=== PATIENT | male | born 1970 | race Caucasian/White ===

== ENCOUNTER 2017-11-04 18:05 | Inpatient (IN) | payer BC ==
[~2017-11-04] VITALS: Ht 162.6 cm; Wt 59.0 kg
[2017-11-04 19:15] VITALS: BP 125/78
[2017-11-04] MEDS ORDERED: PROSCAR5 MG ORAL (19:20)
[2017-11-04] MEDS ORDERED: TESSALON PERLE100 MG ORAL (19:20)
[2017-11-04] MEDS ORDERED: MERCAPTOPURINE50 MG PO (19:20)
[2017-11-04] MEDS ORDERED: PROMETH-CODEIN 65 ML PO (19:20)
[2017-11-04 19:54] LABS: APPEARANCE,URINE SLIGHTLY CLOUDY; BILIRUBIN, URINE NEGATIVE (NEGATIVE); COLOR,URINE AMBER; GLUCOSE, URINE (UA) NEGATIVE (NEGATIVE); KETONES,URINE 3+ (NEGATIVE); LEUKOCYTE ESTERASE ,URINE 1+ (NEGATIVE); NITRITE,URINE NEGATIVE (NEGATIVE); PH,URINE 7 (4.5-8.0); PROTEIN,URINE 2+ (NEGATIVE); UROBILINOGEN,URINE 4 MG/DL (0.0-1.0)
[2017-11-04 19:56] LABS: BASOPHILS % (AUTO) 0.8 % (0.0-2.0); EOSINOPHILS % (AUTO) 2.3 % (0.0-3.0); HEMOGLOBIN 16.4 G/DL (14.2-18.0); LYMPHOCYTES % (AUTO) 43.7 % (20.0-45.0); MEAN CORPUSCULAR VOLUME 88 FL (80-99); MONOCYTES % (AUTO) 11.1 % (1.0-10.0); NEUTROPHILS % (AUTO) 42.2 % (45.0-75.0); PLATELET COUNT 296 K/UL (150-450); RED BLOOD COUNT 5.54 M/UL (4.70-6.10); RED CELL DISTRIBUTION WIDTH 11.4 % (11.6-14.8); WHITE BLOOD COUNT 6.5 K/UL (4.8-10.8)
[2017-11-04 20:12] LABS: ANION GAP 12 mmol/L (5-15); BLOOD UREA NITROGEN 12 mg/dL (7-18); CALCIUM 9.4 MG/DL (8.5-10.1); CARBON DIOXIDE 25 MMOL/L (21-32); CHLORIDE 98 MMOL/L (98-107); POTASSIUM 3.7 MMOL/L (3.5-5.1); SODIUM 135 MMOL/L (136-145)
[2017-11-04 20:17] LABS: ALANINE AMINOTRANSFERASE 283 U/L (12-78); ALBUMIN 3.7 G/DL (3.4-5.0); ALBUMIN/GLOBULIN RATIO 0.8 (1.0-2.7); ALKALINE PHOSPHATASE 133 U/L (46-116); ASPARTATE AMINO TRANSFERASE 135 U/L (15-37); BILIRUBIN,TOTAL 0.7 MG/DL (0.2-1.0); CREATINE KINASE 124 U/L (26-308)
[2017-11-04] MEDS ORDERED: Albuterol ud Inhalation HHN ONE (20:30)
[2017-11-04 20:41] VITALS: BP 135/86
[2017-11-04] MEDS ORDERED: cefTRIAXone 1 GM in NS 55 ML IVPB ONE (20:45)
--- NOTE | 2017-11-04 21:26 | Emergency Room Report ---
History of Present Illness General Chief Complaint: Upper Respiratory Illness Source: Patient Present Illness HPI 47 YO Male presents to the ED c/o cough,congestion body-aches, fevers, chills and headaches with decreased appetite and fluid in-take x9 days. Patient has been treated with multiple outpatient medications and cough syrups. His primary care doctor also did influenza screening which came back as negative. Continues to have progressive symptoms. Reports history of immunocompromise due to medication for Crohn's disease. Denies abdominal pain, constipation, diarrhea. He reports that he took 1000 mg Tylenol prior to arrival 4 PM. Patient states he's been taking Tylenol consistently for fever reduction and only has relief of his symptoms for up to 4 hours. Denies CP, Palpitations, LOC , AMS, dizziness, Changes in Vision, Sensation, paresthesias, or a sudden severe headache. Allergies: Coded Allergies: No Known Allergies (Unverified , 11/04/17) Patient History Past Medical History: see triage record Past Surgical History: none Pertinent Family History: none Immunizations: UTD Reviewed Nursing Documentation: PMH: Agreed, PSxH: Agreed Nursing Documentation-PMH Hx Gastrointestinal Problems: Yes - Crohn's Review of Systems All Other Systems: negative except mentioned in HPI Physical Exam Vital Signs Date Time Temp Pulse Resp B/P (MAP) Pulse Ox O2 Delivery O2 Flow Rate FiO2 11/04/17 18:20 99.5 119 20 114/76 99 Room Air 11/04/17 20:41 21 Sp02 EP Interpretation: reviewed, normal General Appearance: no apparent distress, alert, GCS 15, non-toxic, moderate distress Head: normocephalic, atraumatic Eyes: bilateral eye normal inspection, bilateral eye PERRL ENT: hearing grossly normal, normal pharynx, normal voice, TMs + canals normal , uvula midline, moist mucus membranes Neck: full range of motion, no meningismus, no bony tend Respiratory: chest non-tender, lungs clear, normal breath sounds, no respiratory distress, no wheezing, speaking full sentences, other - persistent dry cough noted. Cardiovascular #1: no edema, normal capillary refill, tachycardia Gastrointestinal: normal bowel sounds, non tender, soft Rectal: deferred Musculoskeletal: back normal, gait/station normal, normal range of motion, non- tender Neurologic: alert, oriented x3, responsive, motor strength/tone normal, sensory intact, normal gait, speech normal, grossly normal Psychiatric: judgement/insight normal Skin: normal color, no rash, warm/dry Lymphatic: no adenopathy Medical Decision Making PA Attestation Dr. Fernando is my supervising physician whom pt. management has been discussed with. Diagnostic Impression: Primary Impression: Dehydration Additional Impressions: Acute viral syndrome History of Crohn's disease Transaminitis ER Course 47 YO Male presents to the ED c/o cough,congestion body-aches, fevers, chills and headaches with decreased appetite and fluid in-take x9 days. Patient has been treated with multiple outpatient medications and cough syrups. His primary care doctor also did influenza screening which came back as negative. Continues to have progressive symptoms. Reports history of immunocompromise due to medication for Crohn's disease. Denies abdominal pain, constipation, diarrhea. He reports that he took 1000 mg Tylenol prior to arrival 4 PM. Patient states he's been taking Tylenol consistently for fever reduction and only has relief of his symptoms for up to 4 hours. Denies CP, Palpitations, LOC , AMS, dizziness, Changes in Vision, Sensation, paresthesias, or a sudden severe headache. Ddx considered but are not limited to URI, pneumonia, PE, strep pharyngitis, meningitis, influenza, dehydration just to name a few. Vital signs: Pt. is afebrile, however tachycardic, the remaining VS are WNL H&PE are most consistent with Acute Viral Syndrome- no meningeal signs, oropharynx is not involved, no evidence of bacterial infection at this time. No abdominal pain, FROM of neck, no photophobia. ORDERS: -CBC: unremarkable -CMP: elevated LFT's, normal bili - Blood cultures x 2 : pending -UA: Moderate bacteria, no inflammatory marker elevation. Suspicious for contamination , however will treat prophylactically and await final urine culture results. -CXR: unremarkable ED INTERVENTIONS: -1 Liter NS Bolus - 1 Gram Rocephin IV - Albuterol Nebulized tx DISPOSITION: at this time pt. will be admitted to Dr. Broderick for Viral syndrome, Transaminitis and Dehydration. Dr. Broderick agreed to admit the pt. and to continue pt. care management. Labs Test 11/04/17 19:35 11/05/17 06:20 Urine Color Alicia Urine Appearance Slightly cloudy Urine pH 7 (4.5-8.0) Urine Specific [place] 1.010 (1.005-1.035) Urine Protein 2+ (NEGATIVE) Urine Glucose (UA) Negative (NEGATIVE) Urine Ketones 3+ (NEGATIVE) Urine Occult Blood 4+ (NEGATIVE) Urine Nitrite Negative (NEGATIVE) Urine Bilirubin Negative (NEGATIVE) Urine Ictotest Negative Urine Urobilinogen 4 MG/DL (0.0-1.0) Urine Leukocyte Esterase 1+ (NEGATIVE) Urine RBC 5-10 /HPF (0 - 0) Urine WBC 2-4 /HPF (0 - 0) Urine Squamous Epithelial Cells None /LPF (NONE/OCC) Urine Calcium Oxalate Crystals Few /LPF (NONE) Urine Bacteria Moderate /HPF (NONE) Urine Mucus Many /LPF (NONE/OCC) Lactic Acid Level 1.60 mmol/L (0.66-2.22) Total Creatine Kinase 124 U/L (26-308) Troponin I 0.000 ng/mL (0.000-0.056) Globulin 4.5 g/dL Albumin/Globulin Ratio 0.8 (1.0-2.7) White Blood Count 6.0 K/UL (4.8-10.8) Red Blood Count 4.55 M/UL (4.70-6.10) Hemoglobin 13.8 G/DL (14.2-18.0) Hematocrit 40.7 % (42.0-52.0) Mean Corpuscular Volume 89 FL (80-99) Mean Corpuscular Hemoglobin 30.4 PG (27.0-31.0) Mean Corpuscular Hemoglobin Concent 34.0 G/DL (32.0-36.0) Red Cell Distribution Width 11.7 % (11.6-14.8) Platelet Count 256 K/UL (150-450) Mean Platelet Volume 5.5 FL (6.5-10.1) Neutrophils (%) (Auto) % (45.0-75.0) Lymphocytes (%) (Auto) % (20.0-45.0) Monocytes (%) (Auto) % (1.0-10.0) Eosinophils (%) (Auto) % (0.0-3.0) Basophils (%) (Auto) % (0.0-2.0) Differential Total Cells Counted 100 Neutrophils % (Manual) 39 % (45-75) Lymphocytes % (Manual) 28 % (20-45) Monocytes % (Manual) 29 % (1-10) Eosinophils % (Manual) 2 % (0-3) Basophils % (Manual) 2 % (0-2) Band Neutrophils 0 % (0-8) Platelet Estimate Adequate Platelet Morphology Normal Red Blood Cell Morphology Normal Sodium Level 137 MMOL/L (136-145) Potassium Level 4.0 MMOL/L (3.5-5.1) Chloride Level 101 MMOL/L (98-107) Carbon Dioxide Level 28 MMOL/L (21-32) Anion Gap 8 mmol/L (5-15) Blood Urea Nitrogen 12 mg/dL (7-18) Creatinine 1.0 MG/DL (0.55-1.30) Estimat Glomerular Filtration Rate > 60 mL/min (>60) Glucose Level 115 MG/DL (74-106) Calcium Level 8.5 MG/DL (8.5-10.1) Magnesium Level 2.1 MG/DL (1.8-2.4) Total Bilirubin 0.5 MG/DL (0.2-1.0) Direct Bilirubin 0.1 MG/DL (0.0-0.3) Aspartate Amino Transf (AST/SGOT) 115 U/L (15-37) Alanine Aminotransferase (ALT/SGPT) 249 U/L (12-78) Alkaline Phosphatase 122 U/L (46-116) Total Protein 7.1 G/DL (6.4-8.2) Albumin 3.1 G/DL (3.4-5.0) Last Vital Signs Date Time Temp Pulse Resp B/P (MAP) Pulse Ox O2 Delivery O2 Flow Rate FiO2 11/04/17 20:41 85 21 Room Air 21 11/04/17 20:41 98 11/04/17 20:41 99.0 135/86 Disposition: ADMITTED INPATIENT Condition: Serious Referrals: NON PHYSICIAN (PCP) Maria A Fox Nov 04, 2017 21:26
[2017-11-04 22:00] VITALS: BP 130/84
[2017-11-04] MEDS ORDERED: D5 1/2NS w/KCl 20mEq 1,000 ML IV SCH (23:30)
[2017-11-04] MEDS ORDERED: Albuterol/Ipratropium 3ml neb HHN PRN (23:30)
[2017-11-04] MEDS: Acetaminophen 500mg (ES) tab ORAL PRN (23:55)
[2017-11-05] VITALS: BP 108/76
[2017-11-05] MEDS ORDERED: Promethazine/Codeine 5ml UD ORAL PRN (00:15)
[2017-11-05] MEDS: 1/2NS w/KCl 20mEq 1000ml 1,000 ML IV SCH ×4 (01:03→21:41)
[2017-11-05 04:00] VITALS: BP 118/82
[2017-11-05] MEDS: Acetaminophen 500mg (ES) tab ORAL PRN ×3 (06:35→18:24)
[2017-11-05 06:36] LABS: HEMATOCRIT 40.7 % (42.0-52.0); HEMOGLOBIN 13.8 G/DL (14.2-18.0); MEAN CORPUSCULAR VOLUME 89 FL (80-99); PLATELET COUNT 256 K/UL (150-450); RED BLOOD COUNT 4.55 M/UL (4.70-6.10); RED CELL DISTRIBUTION WIDTH 11.7 % (11.6-14.8)
[2017-11-05 06:53] LABS: ALANINE AMINOTRANSFERASE 249 U/L (12-78); ALBUMIN 3.1 G/DL (3.4-5.0); ALKALINE PHOSPHATASE 122 U/L (46-116); ANION GAP 8 mmol/L (5-15); ASPARTATE AMINO TRANSFERASE 115 U/L (15-37); BILIRUBIN,DIRECT 0.1 MG/DL (0.0-0.3); BILIRUBIN,TOTAL 0.5 MG/DL (0.2-1.0); BLOOD UREA NITROGEN 12 mg/dL (7-18); CALCIUM 8.5 MG/DL (8.5-10.1); CARBON DIOXIDE 28 MMOL/L (21-32); CHLORIDE 101 MMOL/L (98-107); SODIUM 137 MMOL/L (136-145)
[2017-11-05 08:00] VITALS: BP 107/71
[2017-11-05] MEDS: Heparin 5000 units/ml inj SUBQ SCH ×2 (10:11→21:38)
[2017-11-05 12:00] VITALS: BP 127/83
--- NOTE | 2017-11-05 12:43 | Diagnostic Imaging Report ---
Indication: Chest pain Technique: One view of the chest Comparison: none Findings: Lungs and pleural spaces are clear. Heart size is upper limits normal Impression: No acute process
[2017-11-05 16:05] VITALS: BP 110/71
--- NOTE | 2017-11-05 16:15 | History and Physical Report ---
DATE OF ADMISSION: 11/04/2017 CHIEF COMPLAINT: Congestion and postnasal drip. HISTORY OF PRESENT ILLNESS: This is a 47-year-old male, who has in his background Crohn's disease. For the last 10 days, the patient has been suffering from congestion, headache, chills, and fever. The patient has been trying different medications including cough syrups and Tylenol. Eventually, he presented to the emergency department where he is being admitted for symptomatic relief. PAST MEDICAL HISTORY: Crohn's disease. HOME MEDICATIONS: 1. Benzonatate or Tessalon. 2. Finasteride. 3. Proscar. 4. Mercaptopurine at bedtime. 5. Promethazine with codeine syrup. ALLERGIES: No known drug allergies. FAMILY HISTORY: Unremarkable. SOCIAL HISTORY: He is nonsmoker and nondrinker. There is no history of illicit drug abuse. REVIEW OF SYSTEMS: HEENT: Hearing and eyesight are normal. ENDOCRINE: No history of diabetes, thyroid, or adrenal problems. RESPIRATORY: Please refer to history of present illness. NEUROLOGICAL: No history of stroke, syncope, or Parkinson disease. ENDOCRINE: No history of diabetes, thyroid, or adrenal problems. PHYSICAL EXAMINATION: GENERAL: This is a young male, who is in no acute distress. VITAL SIGNS: Blood pressure 107/71, pulse 101, and temperature 100.6. HEENT: The head is normocephalic and atraumatic. Pupils are equal, round, and reactive to light and accommodation consensually. NECK: Supple. Trachea midline. There was no lymphadenopathy or thyromegaly. LUNGS: Clear to auscultation and percussion. HEART: Regular rate and rhythm without rubs, murmurs, or gallops. ABDOMEN: Soft and nontender. Bowel sounds were active. EXTREMITIES: No clubbing, cyanosis, or edema. NEUROLOGICAL: He is alert and oriented x4. Cranial nerves II through XII are intact. LABORATORY AND ANCILLARY DATA: Urine culture and sensitivity, no growth. CBC within normal limits. Serum chemistry, glucose 115. Liver enzymes elevated. AST initially 135, today 115; ALT 283, today 249; and alkaline phosphatase initially 133, today 122. ASSESSMENT: Suspect viral infection. Rule out cytomegalovirus, rule out other etiologies. PLAN: 1. Continue IV fluids. 2. Symptomatic treatment. Philip Esposito M.D. DR: KAILEY JOB#: [id number] CC: AISHA
[2017-11-05 20:42] VITALS: BP 116/74
[2017-11-05] MEDS ORDERED: Mercaptopurine 50mg tab ORAL SCH ×2 (21:00)
[2017-11-05] MEDS: MERCAPTOPURINE 50 MG ORAL SCH (21:28)
[2017-11-06] VITALS: BP 114/76
[2017-11-06 04:00] VITALS: BP 113/76
[2017-11-06] MEDS: Acetaminophen 500mg (ES) tab ORAL PRN ×4 (07:33→23:58)
[2017-11-06 08:00] VITALS: BP 121/80
[2017-11-06] MEDS: Heparin 5000 units/ml inj SUBQ SCH ×2 (08:10→20:43)
[2017-11-06 08:19] LABS: ALANINE AMINOTRANSFERASE 269 U/L (12-78); ALBUMIN 3.2 G/DL (3.4-5.0); ALKALINE PHOSPHATASE 132 U/L (46-116); ASPARTATE AMINO TRANSFERASE 122 U/L (15-37); BILIRUBIN,DIRECT 0.1 MG/DL (0.0-0.3)
[2017-11-06 08:44] LABS: BILIRUBIN,TOTAL 0.5 MG/DL (0.2-1.0)
[2017-11-06 12:00] VITALS: BP 111/79
--- NOTE | 2017-11-06 12:02 | General Progress Note ---
Assessment/Plan Assessment/Plan No evisence of particular pathology except elevated LFT's - to follow. Check Sinus XR r/O sinusitis. I am resigning from his case due to the deep mistrust. Subjective Allergies: Coded Allergies: No Known Allergies (Unverified , 11/04/17) Subjective Expressed dissatisfaction and a long list of nonspecific complaints Fever Headaches Neck Pain Cough Accusatory " how come aftyer 2 weeks you don't know what I've got. You are the Doctor".. Called nursing Associate Professor to change MD Objective Last 24 Hour Vital Signs Date Time Temp Pulse Resp B/P (MAP) Pulse Ox O2 Delivery O2 Flow Rate FiO2 11/06/17 09:00 98.7 11/06/17 08:00 101.7 111 20 121/80 98 Room Air 11/06/17 04:00 99.3 96 18 113/76 96 11/06/17 00:00 101.0 105 20 114/76 97 11/05/17 20:42 101.3 108 18 116/74 97 11/05/17 16:05 99.0 94 18 110/71 94 Room Air 11/05/17 12:00 99.8 91 18 127/83 94 Room Air Intake and Output 11/05/17 11/06/17 19:00 07:00 Intake Total 1400 ml 1360 ml Balance 1400 ml 1360 ml Intake Oral 400 ml 360 ml IV Total 1000 ml 1000 ml # Voids 4 2 Laboratory Tests 11/06/17 06:45: Total Bilirubin 0.5, Direct Bilirubin 0.1, Aspartate Amino Transf (AST/SGOT) 122H, Alanine Aminotransferase (ALT/SGPT) 269H, Alkaline Phosphatase 132H, Total Protein 7.3, Albumin 3.2L Height (Feet): 5 Height (Inches): 4.00 Weight (Pounds): 130 Objective Cv RR Lungs CTA Abd SNT BS+ E No CCE ALLY ABBOTT Nov 06, 2017 12:02
--- NOTE | 2017-11-06 13:26 | Infectious Diseases Prog Note ---
Assessment/Plan Assessment/Plan Full consult to follow: A) 1) fevers, ? influenza, ? viral syndrome, ? uri/sinusitis 2) Crohn's dx 3) [place] - doubt meningitis 4) allergies - negative P) 1) tamiflu plus rocephin 2) check influenza screen, serology, ct sinus, chest x-ray 3) thank you Subjective Allergies: Coded Allergies: No Known Allergies (Unverified , 11/04/17) Objective Vital Signs Last 24 Hour Vital Signs Date Time Temp Pulse Resp B/P (MAP) Pulse Ox O2 Delivery O2 Flow Rate FiO2 11/06/17 09:00 98.7 11/06/17 08:00 101.7 111 20 121/80 98 Room Air 11/06/17 04:00 99.3 96 18 113/76 96 11/06/17 00:00 101.0 105 20 114/76 97 11/05/17 20:42 101.3 108 18 116/74 97 11/05/17 16:05 99.0 94 18 110/71 94 Room Air Height (Feet): 5 Height (Inches): 4.00 Weight (Pounds): 130 Microbiology Date/Time Source Procedure Growth Status 11/04/17 19:35 Blood Blood Culture - Preliminary NO GROWTH AFTER 24 HOURS Resulted 11/04/17 19:20 Blood Blood Culture - Preliminary NO GROWTH AFTER 24 HOURS Resulted 11/04/17 19:35 Urine,Clean Catch Urine Culture - Preliminary Mixed Gram Positive Organism Resulted Laboratory Tests Test 11/06/17 06:45 Total Bilirubin 0.5 MG/DL (0.2-1.0) Direct Bilirubin 0.1 MG/DL (0.0-0.3) Aspartate Amino Transf (AST/SGOT) 122 U/L (15-37) H Alanine Aminotransferase (ALT/SGPT) 269 U/L (12-78) H Alkaline Phosphatase 132 U/L (46-116) H Total Protein 7.3 G/DL (6.4-8.2) Albumin 3.2 G/DL (3.4-5.0) L Current Medications Medications (Trade) Dose Ordered Sig/Mark Route PRN Reason Start Time Stop Time Status Last Admin Dose Admin Acetaminophen (Tylenol) 500 mg Q6HR PRN ORAL Mild Pain/Temp > 100.5 11/04/17 23:30 12/04/17 23:29 11/06/17 13:19 Albuterol/ Ipratropium (Albuterol/ Ipratropium) 3 ml Q6HRT PRN HHN Shortness of Breath 11/04/17 23:30 11/09/17 23:29 Heparin Sodium (Porcine) (Heparin 5000 units/ml) 5,000 units EVERY 12 HOURS SUBQ 11/05/17 09:00 12/05/17 08:59 11/05/17 21:38 Ondansetron HCl (Zofran) 4 mg Q6H PRN IVP Nausea & Vomiting 11/04/17 23:30 12/04/17 23:29 Patient Own Medication (Patient's Own Med) 0.5 ea QHS ORAL 11/05/17 21:00 12/05/17 20:59 11/05/17 21:28 Promethazine HCl/ Codeine (Phenergan with Codeine) 5 ml Q4H PRN ORAL For Cough 11/05/17 00:15 12/05/17 00:14 Sodium 1,000 ml @ 100 mls/hr Q10H IV 11/04/17 23:45 12/04/17 23:44 11/05/17 21:41 ANABELA MICHAEL Nov 06, 2017 13:26
[2017-11-06] MEDS ORDERED: cefTRIAXone 1 GM in NS 55 ML IVPB SCH (15:00)
[2017-11-06] MEDS: 1/2NS w/KCl 20mEq 1000ml 1,000 ML IV SCH ×3 (15:20→23:51)
[2017-11-06 16:00] VITALS: BP 116/77
--- NOTE | 2017-11-06 16:23 | Diagnostic Imaging Report ---
Indication: Reason For Exam: H/A Technique: Noncontrast spiral acquisitions obtained through the maxillofacial sinuses Multiplanar reconstructions were generated. Total dose length product 543 mGycm. CTDIvol(s) 28 mGy. Radiation dose was minimized using automated exposure control Comparison: none Findings: The sinuses are clear. No mucosal thickening, air-fluid levels, or polyps demonstrated. The nasal septum is midline. The maxillary ostia are clear. The mastoids are clear. The dentition is intact. The bones are intact. The visualized intracranial structures are unremarkable. The optic globes and retroseptal orbits are unremarkable. The facial soft tissues are unremarkable. Impression: Negative The CT scanner at [facility] is accredited by the [employer] and the scans are performed using protocols designed to limit radiation exposure to as low as reasonably achievable to attain images of sufficient resolution adequate for diagnostic evaluation.
[2017-11-06] MEDS ORDERED: Zolpidem 5mg tab ORAL PRN (17:00)
[2017-11-06] MEDS ORDERED: DiphenhydrAMINE 50mg/ml Inj IVP PRN (17:00)
[2017-11-06] MEDS ORDERED: Morphine Sulfate 4mg/ml Inj IVP PRN (17:00)
--- NOTE | 2017-11-06 17:10 | Consultation ---
History of Present Illness General Date patient seen: Nov 06, 2017 Time patient seen: 17:10 Chief Complaint: fevers, cough Referring physician: Dr. Esposito Reason for Consultation: assume primary Present Illness HPI 47y/o male with pmh of Crohn's disease (stable on mercaptopurine per pt) who presents with fevers and cough. Pt states he has not been feeling well for the past 10 days. He c/o cough which is dry. Also w/ sorethroat, sinus pain, headaches, fevers/chills/sweats. Notes fevers up to 102 at home. Was seen by PCP and had influenza test which was negative but given 5 day course of tamiflu which he completed w/o improvement. Given persistent fevers and flu-like symptoms he presented to ER for further evaluation. Denies abd pain, n/v, d/c, dysuria, chest pain, SOB, neck stiffness. Travels often for his work. Was in [employer] last year. Goes to [facility] [place]. Denies recent sick contacts, tick bites, insect bites. In ER, pt noted to have fevers to 101.4, tachycardic to 100-110s. No leukocytosis. +elevated LFTs. He was admitted and diagnosed with likely viral illness. He has been given IVFs. Influenza test was negative. Allergies: Coded Allergies: No Known Allergies (Unverified , 11/04/17) Medication History Scheduled Benzonatate* (Tessalon Perle*), 100 MG ORAL THREE TIMES A DAY, (Reported) Finasteride* (Proscar*), 5 MG ORAL DAILY, (Reported) Mercaptopurine (Mercaptopurine), 50 MG PO HS, (Reported) Promethazine HCl/Codeine (Prometh-Codein 6.25-10 mg/5 ml), 10 ML PO HS, ( Reported) Patient History History Provided By: Patient, Family Member, Medical Record Healthcare decision maker N Resuscitation status Full Code Advanced Directive on File Past Medical/Surgical History Past Medical/Surgical History: (1) History of Crohn's disease Family History Family History: (1) No significant family history Social History Social History: (1) No significant social history Review of Systems Constitutional: Reports: chills, sweats, fever, malaise, weakness Eye: Reports: no symptoms ENT: Reports: throat pain, throat swelling Respiratory: Reports: cough Cardiovascular: Reports: no symptoms Gastrointestinal: Reports: no symptoms Genitourinary: Reports: no symptoms Musculoskeletal: Reports: no symptoms Skin: Reports: no symptoms Psychiatric: Reports: no symptoms Neurological: Reports: no symptoms Endocrine: Reports: no symptoms Hematologic/Lymphatic: Reports: no symptoms All Other Systems: negative except mentioned in HPI Physical Exam Physical Exam Narrative General: alert, cooperative, no distress, appears stated age Head: normocephalic, without obvious abnormality, atraumatic Eyes: conjunctivae/corneas clear. PERRL, EOM's intact Throat: lips, mucosa, and tongue normal. MMM Neck: supple, symmetrical, trachea midline, and no JVD Lungs: clear to auscultation bilaterally Heart: regular rate and rhythm, S1, S2 normal, no murmur, click, rub or gallop Abdomen: soft, non-tender, non-distended, bowel sounds normal; no masses or organomegaly Extremities: extremities normal, atraumatic, no cyanosis or edema Pulses: 2+ and symmetric Skin: skin color, texture, turgor normal; no rashes or lesions Neurologic: grossly normal, no focal deficits Last 24 Hour Vital Signs Date Time Temp Pulse Resp B/P (MAP) Pulse Ox O2 Delivery O2 Flow Rate FiO2 11/06/17 14:18 98.7 11/06/17 12:00 98.5 97 20 111/79 98 Room Air 11/06/17 08:00 101.7 111 20 121/80 98 Room Air 11/06/17 04:00 99.3 96 18 113/76 96 11/06/17 00:00 101.0 105 20 114/76 97 11/05/17 20:42 101.3 108 18 116/74 97 Intake and Output 11/05/17 11/06/17 19:00 07:00 Intake Total 1400 ml 1360 ml Balance 1400 ml 1360 ml Intake Oral 400 ml 360 ml IV Total 1000 ml 1000 ml # Voids 4 2 Laboratory Tests Test 11/06/17 06:45 Total Bilirubin 0.5 MG/DL (0.2-1.0) Direct Bilirubin 0.1 MG/DL (0.0-0.3) Aspartate Amino Transf (AST/SGOT) 122 U/L (15-37) H Alanine Aminotransferase (ALT/SGPT) 269 U/L (12-78) H Alkaline Phosphatase 132 U/L (46-116) H Total Protein 7.3 G/DL (6.4-8.2) Albumin 3.2 G/DL (3.4-5.0) L Microbiology Date/Time Source Procedure Growth Status 11/06/17 13:40 Nasal Nares Influenza Types A,B Antigen (CHRISTIAN) - Final Complete Height (Feet): 5 Height (Inches): 4.00 Weight (Pounds): 130 Medications Current Medications Medications (Trade) Dose Ordered Sig/Mark Route PRN Reason Start Time Stop Time Status Last Admin Dose Admin Acetaminophen (Tylenol) 500 mg Q6HR ORAL 11/06/17 20:00 12/04/17 23:29 UNV Albuterol/ Ipratropium (Albuterol/ Ipratropium) 3 ml Q6HRT PRN HHN Shortness of Breath 11/04/17 23:30 11/09/17 23:29 Ceftriaxone Sodium 1 gm/ Sodium Chloride 55 ml @ 110 mls/hr Q24H IVPB 11/06/17 15:00 11/13/17 14:59 11/06/17 15:20 Diphenhydramine HCl (Benadryl) 25 mg Q6H PRN IVP Itching 11/06/17 17:00 12/06/17 16:59 Fexofenadine HCl (Sima) 60 mg TWICE A DAY ORAL 11/06/17 18:00 12/06/17 17:59 Heparin Sodium (Porcine) (Heparin 5000 units/ml) 5,000 units EVERY 12 HOURS SUBQ 11/05/17 09:00 12/05/17 08:59 11/05/17 21:38 Ketorolac Tromethamine (Toradol 30mg) 30 mg Q6H IV 11/06/17 17:00 11/11/17 16:59 UNV Morphine Sulfate (Morphine Sulfate) 2 mg Q4H PRN IVP For mod to severe Pain 11/06/17 17:00 11/13/17 16:59 Non-Formulary Medication (Non-Formulary Med) 1 ea DAILY ORAL 11/06/17 17:00 12/06/17 16:59 UNV Non-Formulary Medication (Non-Formulary Med) 1 ea DAILY ORAL 11/06/17 17:00 12/06/17 16:59 UNV Ondansetron HCl (Zofran) 4 mg Q6H PRN IVP Nausea & Vomiting 11/04/17 23:30 12/04/17 23:29 Oseltamivir Phosphate (Tamiflu) 75 mg TWICE A DAY ORAL 11/06/17 18:00 11/11/17 17:59 Patient Own Medication (Patient's Own Med) 0.5 ea QHS ORAL 11/05/17 21:00 12/05/17 20:59 11/05/17 21:28 Promethazine HCl/ Codeine (Phenergan with Codeine) 5 ml Q4H PRN ORAL For Cough 11/05/17 00:15 12/05/17 00:14 Sodium 1,000 ml @ 100 mls/hr Q10H IV 11/04/17 23:45 12/04/17 23:44 11/06/17 15:20 Zolpidem Tartrate (Ambien) 5 mg HSPRN PRN ORAL Insomnia 11/06/17 17:00 11/13/17 16:59 Assessment/Plan Problem List: (1) SIRS (systemic inflammatory response syndrome) ICD Codes: R65.10 - Systemic inflammatory response syndrome (SIRS) of non- infectious origin without acute organ dysfunction SNOMED: 737797233 (2) Febrile illness, acute ICD Codes: R50.9 - Fever, unspecified SNOMED: 544908930 (3) Transaminitis ICD Codes: R74.0 - Nonspecific elevation of levels of transaminase and lactic acid dehydrogenase [LDH] SNOMED: 148401695, 583684329 (4) Dehydration ICD Codes: E86.0 - Dehydration SNOMED: 99105326 (5) History of Crohn's disease ICD Codes: Z87.19 - Personal history of other diseases of the digestive system SNOMED: 758188431074809 (6) Hyponatremia ICD Codes: E87.1 - Hypo-osmolality and hyponatremia SNOMED: 84195675 Status: stable Assessment/Plan Unclear etiology. Possibly viral illness. Given elevated LFTs, consider EBV as an etiology ID consulted, appreciate rec's Start empiric ceftriaxone + tamiflu (11/06-) Consider adding atypical coverage if fevers persist F/u cultures Check EBV, monospot, hepatitis panel, HIV, CMV Trend LFTs mIVFs Tylenol + trial of Ketorlac (risks discussed and pt wishes to try it) Consider LP given c/o severe headache Pain control, bowel regimen Supportive care DVT ppx: early ambulation. pt refusing hsq FULL CODE D/w pt, mother, ID, RN extensively regarding plan of care and dispo Salina Driver M.D. Nov 06, 2017 17:10
[2017-11-06] MEDS: Acetaminophen 500mg (ES) tab ORAL SCH ×2 (17:30→17:54)
[2017-11-06] MEDS: Oseltamivir 75mg cap ORAL SCH (17:54)
[2017-11-06] MEDS: Ketorolac 30mg Inj IV SCH (17:54)
[2017-11-06 20:00] VITALS: BP 111/73
[2017-11-06] MEDS: MERCAPTOPURINE 50 MG ORAL SCH (20:42)
[2017-11-06] MEDS ORDERED: FINASTERIDE 5 MG ORAL SCH (21:00)
[2017-11-07] VITALS: BP 111/77
[2017-11-07 04:00] VITALS: BP 138/85
[2017-11-07] MEDS: Ketorolac 30mg Inj IV SCH ×6 (05:47→23:49)
[2017-11-07 07:22] LABS: BASOPHILS % (AUTO) 0.6 % (0.0-2.0); EOSINOPHILS % (AUTO) 2.9 % (0.0-3.0); HEMATOCRIT 41.6 % (42.0-52.0); HEMOGLOBIN 14.3 G/DL (14.2-18.0); MEAN CORPUSCULAR VOLUME 90 FL (80-99); MONOCYTES % (AUTO) 13.8 % (1.0-10.0); NEUTROPHILS % (AUTO) 44.7 % (45.0-75.0); PLATELET COUNT 275 K/UL (150-450); RED BLOOD COUNT 4.64 M/UL (4.70-6.10); WHITE BLOOD COUNT 5.8 K/UL (4.8-10.8)
[2017-11-07 07:32] LABS: ALANINE AMINOTRANSFERASE 278 U/L (12-78); ALBUMIN 3.2 G/DL (3.4-5.0); ALBUMIN/GLOBULIN RATIO 0.7 (1.0-2.7); ALKALINE PHOSPHATASE 156 U/L (46-116); ANION GAP 8 mmol/L (5-15); ASPARTATE AMINO TRANSFERASE 139 U/L (15-37); BILIRUBIN,TOTAL 0.5 MG/DL (0.2-1.0); BLOOD UREA NITROGEN 8 mg/dL (7-18); CALCIUM 8.7 MG/DL (8.5-10.1); CARBON DIOXIDE 26 MMOL/L (21-32); CHLORIDE 100 MMOL/L (98-107); CREATININE 0.9 MG/DL (0.55-1.30); POTASSIUM 4.1 MMOL/L (3.5-5.1); SODIUM 134 MMOL/L (136-145)
[2017-11-07 08:00] VITALS: BP 110/78
[2017-11-07] MEDS: 1/2NS w/KCl 20mEq 1000ml 1,000 ML IV SCH (08:30)
[2017-11-07] MEDS: Heparin 5000 units/ml inj SUBQ SCH (09:00)
[2017-11-07] MEDS: Oseltamivir 75mg cap ORAL SCH ×2 (09:00→17:51)
[2017-11-07] MEDS: NS w/KCl 20mEq 1,000 ML IV SCH ×2 (10:22→20:00)
[2017-11-07] MEDS ORDERED: Benzonatate 100mg Perles ORAL SCH (10:30)
--- NOTE | 2017-11-07 10:35 | Diagnostic Imaging Report ---
Indication: Cough Technique: One view of the chest Comparison: 11/04/2017 Findings: Less optimal inspiration with crowding of the bronchovascular markings. There is mild central bronchial wall thickening. The lungs and pleural spaces are clear. The heart size is normal. Impression: Mild central bronchial wall thickening, could indicate mild bronchitis changes Hypoventilatory exam No acute process otherwise
[2017-11-07 12:00] VITALS: BP 122/71
--- NOTE | 2017-11-07 13:22 | Infectious Diseases Prog Note ---
Assessment/Plan Assessment/Plan Full consult dictated: A) 1) fevers, ? influenza, ? viral syndrome, chest x-ray negative and ct sinuses negative 2) Crohn's dx 3) [place] - doubt meningitis 4) allergies - negative P) 1) tamiflu - day # 2/5, discontinue ceftriaxone 2) check serology, watch labs and temps 3) d/w Dr. Downing and patient Subjective Constitutional: Reports: fever HEENT: Reports: other - + [place], +cough, Denies: congestion Respiratory: Denies: shortness of breath Cardiovascular: Denies: chest pain Gastrointestinal/Abdominal: Denies: nausea Genitourinary: Denies: dysuria, hematuria Allergies: Coded Allergies: No Known Allergies (Unverified , 11/04/17) Objective Vital Signs Last 24 Hour Vital Signs Date Time Temp Pulse Resp B/P (MAP) Pulse Ox O2 Delivery O2 Flow Rate FiO2 11/07/17 12:35 99.2 11/07/17 12:00 98.7 97 19 122/71 97 11/07/17 08:00 99.2 96 18 110/78 97 11/07/17 04:00 100.7 100 18 138/85 97 11/07/17 01:16 99.4 11/07/17 00:00 100.3 96 19 111/77 97 11/06/17 20:00 99.5 92 17 111/73 97 11/06/17 16:00 99.6 104 20 116/77 97 Room Air 11/06/17 14:18 98.7 Height (Feet): 5 Height (Inches): 4.00 Weight (Pounds): 130 General Appearance: no acute distress HEENT: normocephalic, atraumatic, anicteric, mucous membranes moist, EOMI, supple, no JVD Respiratory/Chest: lungs clear, normal breath sounds, no respiratory distress Cardiovascular: normal rate, regular rhythm Abdomen: normal bowel sounds, soft, non tender, no organomegaly Microbiology Date/Time Source Procedure Growth Status 11/04/17 19:35 Blood Blood Culture - Preliminary NO GROWTH AFTER 48 HOURS Resulted 11/04/17 19:20 Blood Blood Culture - Preliminary NO GROWTH AFTER 48 HOURS Resulted 11/06/17 13:40 Nasal Nares Influenza Types A,B Antigen (CHRISTIAN) - Final Complete 11/04/17 19:35 Urine,Clean Catch Urine Culture - Final Mixed Gram Positive Organism Complete Laboratory Tests Test 11/07/17 04:20 White Blood Count 5.8 K/UL (4.8-10.8) Red Blood Count 4.64 M/UL (4.70-6.10) L Hemoglobin 14.3 G/DL (14.2-18.0) Hematocrit 41.6 % (42.0-52.0) L Mean Corpuscular Volume 90 FL (80-99) Mean Corpuscular Hemoglobin 30.7 PG (27.0-31.0) Mean Corpuscular Hemoglobin Concent 34.3 G/DL (32.0-36.0) Red Cell Distribution Width 12.0 % (11.6-14.8) Platelet Count 275 K/UL (150-450) Mean Platelet Volume 4.7 FL (6.5-10.1) L Neutrophils (%) (Auto) 44.7 % (45.0-75.0) L Lymphocytes (%) (Auto) 38.0 % (20.0-45.0) Monocytes (%) (Auto) 13.8 % (1.0-10.0) H Eosinophils (%) (Auto) 2.9 % (0.0-3.0) Basophils (%) (Auto) 0.6 % (0.0-2.0) Sodium Level 134 MMOL/L (136-145) L Potassium Level 4.1 MMOL/L (3.5-5.1) Chloride Level 100 MMOL/L (98-107) Carbon Dioxide Level 26 MMOL/L (21-32) Anion Gap 8 mmol/L (5-15) Blood Urea Nitrogen 8 mg/dL (7-18) Creatinine 0.9 MG/DL (0.55-1.30) Estimat Glomerular Filtration Rate > 60 mL/min (>60) Glucose Level 108 MG/DL (74-106) H Calcium Level 8.7 MG/DL (8.5-10.1) Total Bilirubin 0.5 MG/DL (0.2-1.0) Aspartate Amino Transf (AST/SGOT) 139 U/L (15-37) H Alanine Aminotransferase (ALT/SGPT) 278 U/L (12-78) H Alkaline Phosphatase 156 U/L (46-116) H Total Protein 7.6 G/DL (6.4-8.2) Albumin 3.2 G/DL (3.4-5.0) L Globulin 4.4 g/dL Albumin/Globulin Ratio 0.7 (1.0-2.7) L Cytomegalovirus DNA Qual (PCR) Pending Natali-Kang DNA Quant copies/mL Pending Natali-Kang Quant PCR Plasma log10 Pending Hepatitis A IgM Antibody Pending Hepatitis B Surface Antigen Pending Hepatitis B Core IgM Antibody Pending Hepatitis C Antibody Pending Current Medications Medications (Trade) Dose Ordered Sig/Mark Route PRN Reason Start Time Stop Time Status Last Admin Dose Admin Acetaminophen (Tylenol) 500 mg Q6H PRN ORAL Headache/Temp > 101 11/06/17 18:00 12/06/17 17:59 11/06/17 23:58 Albuterol/ Ipratropium (Albuterol/ Ipratropium) 3 ml Q6HRT PRN HHN Shortness of Breath 11/04/17 23:30 11/09/17 23:29 Ceftriaxone Sodium 1 gm/ Sodium Chloride 55 ml @ 110 mls/hr Q24H IVPB 11/06/17 15:00 11/13/17 14:59 11/06/17 15:20 Diphenhydramine HCl (Benadryl) 25 mg Q6H PRN IVP Itching 11/06/17 17:00 12/06/17 16:59 Fexofenadine HCl (Sima) 60 mg TWICE A DAY ORAL 11/06/17 18:00 12/06/17 17:59 11/07/17 09:00 Finasteride (Proscar) 2.5 mg QHS ORAL 11/07/17 21:00 12/07/17 20:59 Hydromorphone HCl (Dilaudid) 0.5 mg Q4H PRN IVP Unrelieved Jes-ew-Jfrwig Pain 11/06/17 17:15 11/13/17 17:14 Ketorolac Tromethamine (Toradol 30mg) 30 mg Q6HR IV 11/06/17 17:30 11/11/17 17:29 11/07/17 12:05 Ondansetron HCl (Zofran) 4 mg Q6H PRN IVP Nausea & Vomiting 11/04/17 23:30 12/04/17 23:29 Oseltamivir Phosphate (Tamiflu) 75 mg TWICE A DAY ORAL 11/06/17 18:00 11/11/17 17:59 11/07/17 09:00 Patient Own Medication (Patient's Own Med) 0.5 ea QHS ORAL 11/05/17 21:00 12/05/17 20:59 11/06/17 20:42 Prochlorperazine (Compazine) 10 mg Q6H PRN IVP Nausea & Vomiting 11/07/17 10:15 12/07/17 10:14 Promethazine HCl/ Codeine (Phenergan with Codeine) 5 ml Q4H PRN ORAL For Cough 11/05/17 00:15 12/05/17 00:14 11/07/17 12:13 Sodium Chloride 1,000 ml @ 100 mls/hr Q10H IV 11/07/17 10:00 12/07/17 09:59 11/07/17 10:22 Zolpidem Tartrate (Ambien) 5 mg HSPRN PRN ORAL Insomnia 11/06/17 17:00 11/13/17 16:59 ANABELA MICHAEL Nov 07, 2017 13:22
--- NOTE | 2017-11-07 15:46 | General Progress Note ---
Assessment/Plan Problem List: (1) SIRS (systemic inflammatory response syndrome) ICD Codes: R65.10 - Systemic inflammatory response syndrome (SIRS) of non- infectious origin without acute organ dysfunction SNOMED: 732374336 (2) Febrile illness, acute ICD Codes: R50.9 - Fever, unspecified SNOMED: 814708719 (3) Transaminitis ICD Codes: R74.0 - Nonspecific elevation of levels of transaminase and lactic acid dehydrogenase [LDH] SNOMED: 601649485, 112283094 (4) Elevated liver function tests ICD Codes: R79.89 - Other specified abnormal findings of blood chemistry SNOMED: 133515658, 470334335 (5) Dehydration ICD Codes: E86.0 - Dehydration SNOMED: 06869119 (6) Hyponatremia ICD Codes: E87.1 - Hypo-osmolality and hyponatremia SNOMED: 04649343 (7) History of Crohn's disease ICD Codes: Z87.19 - Personal history of other diseases of the digestive system SNOMED: 384717836106540 Status: stable Assessment/Plan Unclear etiology. Possibly viral illness. Given elevated LFTs, consider EBV as an etiology ID consulted, appreciate rec's Cont tamiflu (11/06-). Influenza rapid test neg but maybe false positive. [place] [facility] [place] ceftriaxone and observe Consider atypical coverage if fevers persist F/u cultures F/u EBV, monospot, hepatitis panel, HIV, CMV Trend LFTs mIVFs Tylenol + trial of Ketorlac (risks discussed and pt wishes to try it) Consider further CT chest/abd/pelvis if fevers persist Consider LP given c/o severe headache Pain control, bowel regimen Supportive care DVT ppx: early ambulation. pt refusing hsq FULL CODE D/w pt, mother, ID, RN extensively regarding plan of care and dispo Subjective Date patient seen: Nov 07, 2017 Time patient seen: 10:00 ROS Limited/Unobtainable: No Constitutional: Reports: fever, malaise, weakness HEENT: Reports: no symptoms, throat pain Respiratory: Reports: cough, shortness of breath Gastrointestinal/Abdominal: Reports: no symptoms Genitourinary: Reports: no symptoms Neurologic/Psychiatric: Reports: headache Endocrine: Reports: no symptoms Hematologic/Lymphatic: Reports: no symptoms Allergies: Coded Allergies: No Known Allergies (Unverified , 11/04/17) All Systems: reviewed and negative except above Subjective No acute o/n events Cont to have fevers up to 101 Pt states Toradol helps with fevers and pain. Still not feeling well. Cont w/ coughing fits, sinus pain, headaches, lethargy. Appetite ok Objective Last 24 Hour Vital Signs Date Time Temp Pulse Resp B/P (MAP) Pulse Ox O2 Delivery O2 Flow Rate FiO2 11/07/17 12:35 99.2 11/07/17 12:00 97 Room Air 11/07/17 12:00 98.7 97 19 122/71 97 11/07/17 08:00 99.2 96 18 110/78 97 11/07/17 08:00 97 Room Air 11/07/17 04:00 100.7 100 18 138/85 97 11/07/17 01:16 99.4 11/07/17 00:00 100.3 96 19 111/77 97 11/06/17 20:00 99.5 92 17 111/73 97 11/06/17 16:00 99.6 104 20 116/77 97 Room Air Intake and Output 11/06/17 11/07/17 19:00 07:00 Intake Total 1460 ml 1562 ml Balance 1460 ml 1562 ml Intake Oral 360 ml 362 ml IV Total 1100 ml 1200 ml # Voids 2 2 Laboratory Tests 11/07/17 04:20: White Blood Count 5.8, Red Blood Count 4.64L, Hemoglobin 14.3, Hematocrit 41.6L , Mean Corpuscular Volume 90, Mean Corpuscular Hemoglobin 30.7, Mean Corpuscular Hemoglobin Concent 34.3, Red Cell Distribution Width 12.0, Platelet Count 275, Mean Platelet Volume 4.7L, Neutrophils (%) (Auto) 44.7L, Lymphocytes (%) (Auto) 38.0, Monocytes (%) (Auto) 13.8H, Eosinophils (%) (Auto) 2.9, Basophils (%) (Auto) 0.6, Sodium Level 134L, Potassium Level 4.1, Chloride Level 100, Carbon Dioxide Level 26, Anion Gap 8, Blood Urea Nitrogen 8, Creatinine 0.9, Estimat Glomerular Filtration Rate > 60, Glucose Level 108H, Calcium Level 8.7, Total Bilirubin 0.5, Aspartate Amino Transf (AST/SGOT) 139H, Alanine Aminotransferase (ALT/SGPT) 278H, Alkaline Phosphatase 156H, Total Protein 7.6, Albumin 3.2L, Globulin 4.4, Albumin/Globulin Ratio 0.7L, Cytomegalovirus DNA Qual (PCR) [Pending], Natali-Kang DNA Quant copies/mL [ Pending], Natali-Kang Quant PCR Plasma log10 [Pending], Hepatitis A IgM Antibody [Pending], Hepatitis B Surface Antigen [Pending], Hepatitis B Core IgM Antibody [Pending], Hepatitis C Antibody [Pending] Height (Feet): 5 Height (Inches): 4.00 Weight (Pounds): 130 Objective General: alert, cooperative, no distress, appears stated age Head: normocephalic, without obvious abnormality, atraumatic Eyes: conjunctivae/corneas clear. PERRL, EOM's intact Throat: lips, mucosa, and tongue normal. MMM Neck: supple, symmetrical, trachea midline, and no JVD Lungs: clear to auscultation bilaterally Heart: regular rate and rhythm, S1, S2 normal, no murmur, click, rub or gallop Abdomen: soft, non-tender, non-distended, bowel sounds normal Extremities: extremities normal, atraumatic, no cyanosis or edema Pulses: 2+ and symmetric Skin: skin color, texture, turgor normal; no rashes or lesions Neurologic: grossly normal, no focal deficits Salina Driver M.D. Nov 07, 2017 15:46
[2017-11-07 16:00] VITALS: BP 135/75
[2017-11-07] MEDS: Acetaminophen 500mg (ES) tab ORAL PRN (16:43)
[2017-11-07 20:00] VITALS: BP 110/73
[2017-11-07] MEDS: MERCAPTOPURINE 50 MG ORAL SCH (20:51)
[2017-11-07] MEDS: Hydromorphone 0.5mg/0.5ml inj IVP PRN (22:36)
[2017-11-08] VITALS: BP 121/68
[2017-11-08 04:00] VITALS: BP 125/89
[2017-11-08] MEDS: Ketorolac 30mg Inj IV SCH ×3 (05:42→17:55)
[2017-11-08] MEDS: NS w/KCl 20mEq 1,000 ML IV SCH ×3 (06:00→16:00)
[2017-11-08 08:00] VITALS: BP 100/57
[2017-11-08 08:42] LABS: BASOPHILS % (AUTO) 0.7 % (0.0-2.0); EOSINOPHILS % (AUTO) 2.2 % (0.0-3.0); HEMATOCRIT 37.8 % (42.0-52.0); HEMOGLOBIN 13.2 G/DL (14.2-18.0); LYMPHOCYTES % (AUTO) 41.6 % (20.0-45.0); MEAN CORPUSCULAR VOLUME 90 FL (80-99); MONOCYTES % (AUTO) 17.3 % (1.0-10.0); NEUTROPHILS % (AUTO) 38.3 % (45.0-75.0); PLATELET COUNT 263 K/UL (150-450); RED BLOOD COUNT 4.21 M/UL (4.70-6.10); RED CELL DISTRIBUTION WIDTH 12.1 % (11.6-14.8)
[2017-11-08 08:58] LABS: ALANINE AMINOTRANSFERASE 286 U/L (12-78); ALBUMIN 2.9 G/DL (3.4-5.0); ALBUMIN/GLOBULIN RATIO 0.7 (1.0-2.7); ALKALINE PHOSPHATASE 159 U/L (46-116); ANION GAP 8 mmol/L (5-15); ASPARTATE AMINO TRANSFERASE 144 U/L (15-37); BILIRUBIN,TOTAL 0.4 MG/DL (0.2-1.0); BLOOD UREA NITROGEN 7 mg/dL (7-18); CALCIUM 8.2 MG/DL (8.5-10.1); CARBON DIOXIDE 25 MMOL/L (21-32); CHLORIDE 100 MMOL/L (98-107); CREATININE 0.8 MG/DL (0.55-1.30); POTASSIUM 3.7 MMOL/L (3.5-5.1); SODIUM 133 MMOL/L (136-145)
[2017-11-08] MEDS ORDERED: Azithromycin 250mg tab ORAL SCH (09:00)
[2017-11-08] MEDS: Oseltamivir 75mg cap ORAL SCH ×2 (09:30→17:54)
[2017-11-08] MEDS ORDERED: cefTRIAXone 1 GM in D5W 55 ML IVPB SCH (10:00)
[2017-11-08] MEDS: cefTRIAXone 1 GM in NS 55 ML IVPB SCH (11:38)
[2017-11-08 12:00] VITALS: BP 117/74
[2017-11-08] MEDS: Doxycycline Hyclate 100 MG in NS 110 ML IV SCH ×2 (12:11→22:12)
--- NOTE | 2017-11-08 13:07 | Infectious Diseases Prog Note ---
Assessment/Plan Assessment/Plan A) 1) fevers persist, elevated LDH, ? influenza, ? viral syndrome, ? atypical pathogen, ? fungal/TB, ? lymphoma 2) Crohn's dx with immunosuppression tx 3) [place] - doubt meningitis 4) allergies - negative P) 1) tamiflu - day # 3/5, rocephin, doxycycline, azithromycin 2) extensive serology ordered, check CT scan, check US abdomen, watch labs and temps 3) d/w Dr. Downing and patient 4) orders entered Subjective Constitutional: Reports: fever, other - + [place] HEENT: Denies: congestion Respiratory: Denies: shortness of breath Cardiovascular: Denies: chest pain Gastrointestinal/Abdominal: Denies: nausea, vomiting, diarrhea Genitourinary: Denies: dysuria Neurologic: Reports: headache Allergies: Coded Allergies: No Known Allergies (Unverified , 11/04/17) Objective Vital Signs Last 24 Hour Vital Signs Date Time Temp Pulse Resp B/P (MAP) Pulse Ox O2 Delivery O2 Flow Rate FiO2 11/08/17 08:00 100.3 68 19 100/57 96 11/08/17 06:45 99.1 11/08/17 04:00 102.3 126 19 125/89 97 11/08/17 04:00 97 Room Air 11/08/17 00:00 97 Room Air 11/08/17 00:00 101.2 116 18 121/68 97 11/07/17 20:00 100.9 116 18 110/73 97 11/07/17 20:00 97 Room Air 11/07/17 18:22 102.0 11/07/17 17:56 102.0 11/07/17 17:56 102.0 11/07/17 16:30 100.3 11/07/17 16:00 97 Room Air 11/07/17 16:00 97.0 95 19 135/75 97 Height (Feet): 5 Height (Inches): 4.00 Weight (Pounds): 130 General Appearance: no acute distress HEENT: normocephalic, atraumatic, anicteric Respiratory/Chest: lungs clear, normal breath sounds, no respiratory distress Cardiovascular: normal rate, regular rhythm, no gallop/murmur Abdomen: normal bowel sounds, soft, non tender, no organomegaly Microbiology Date/Time Source Procedure Growth Status 11/06/17 13:40 Nasal Nares Influenza Types A,B Antigen (CHRISTIAN) - Final Complete Laboratory Tests Test 11/08/17 06:15 11/08/17 11:30 White Blood Count 7.0 K/UL (4.8-10.8) Red Blood Count 4.21 M/UL (4.70-6.10) L Hemoglobin 13.2 G/DL (14.2-18.0) L Hematocrit 37.8 % (42.0-52.0) L Mean Corpuscular Volume 90 FL (80-99) Mean Corpuscular Hemoglobin 31.4 PG (27.0-31.0) H Mean Corpuscular Hemoglobin Concent 35.0 G/DL (32.0-36.0) Red Cell Distribution Width 12.1 % (11.6-14.8) Platelet Count 263 K/UL (150-450) Mean Platelet Volume 4.7 FL (6.5-10.1) L Neutrophils (%) (Auto) 38.3 % (45.0-75.0) L Lymphocytes (%) (Auto) 41.6 % (20.0-45.0) Monocytes (%) (Auto) 17.3 % (1.0-10.0) H Eosinophils (%) (Auto) 2.2 % (0.0-3.0) Basophils (%) (Auto) 0.7 % (0.0-2.0) Erythrocyte Sedimentation Rate 27 MM/HR (0-15) H Sodium Level 133 MMOL/L (136-145) L Potassium Level 3.7 MMOL/L (3.5-5.1) Chloride Level 100 MMOL/L (98-107) Carbon Dioxide Level 25 MMOL/L (21-32) Anion Gap 8 mmol/L (5-15) Blood Urea Nitrogen 7 mg/dL (7-18) Creatinine 0.8 MG/DL (0.55-1.30) Estimat Glomerular Filtration Rate > 60 mL/min (>60) Glucose Level 112 MG/DL (74-106) H Calcium Level 8.2 MG/DL (8.5-10.1) L Total Bilirubin 0.4 MG/DL (0.2-1.0) Aspartate Amino Transf (AST/SGOT) 144 U/L (15-37) H Alanine Aminotransferase (ALT/SGPT) 286 U/L (12-78) H Alkaline Phosphatase 159 U/L (46-116) H Lactate Dehydrogenase 516 U/L (81-234) H Total Protein 6.9 G/DL (6.4-8.2) Albumin 2.9 G/DL (3.4-5.0) L Globulin 4.0 g/dL Albumin/Globulin Ratio 0.7 (1.0-2.7) L Rapid Plasma Reagin Pending Bartonella henselae IgG Antibody Pending Bartonella henselae IgM Antibody Pending HIV (1&2) Antibody Rapid Negative (NEGATIVE) Q Fever Phase I IgG Antibody Pending Q Fever Phase II IgG Antibody Pending Rickettsia IgG Ab ([facility] Fever) Pending Rickettsia IgM Ab ([facility] Fever) Pending Current Medications Medications (Trade) Dose Ordered Sig/Mark Route PRN Reason Start Time Stop Time Status Last Admin Dose Admin Acetaminophen (Tylenol) 500 mg Q6H PRN ORAL Headache/Temp > 101 11/06/17 18:00 12/06/17 17:59 11/07/17 16:43 Albuterol/ Ipratropium (Albuterol/ Ipratropium) 3 ml Q6HRT PRN HHN Shortness of Breath 11/04/17 23:30 11/09/17 23:29 Azithromycin 500 mg/Dextrose 275 ml @ 275 mls/hr Q24HRS IV 11/08/17 13:00 11/14/17 13:59 Ceftriaxone Sodium 1 gm/ Sodium Chloride 55 ml @ 110 mls/hr DAILY IVPB 11/08/17 10:45 11/15/17 10:44 11/08/17 11:38 Diphenhydramine HCl (Benadryl) 25 mg Q6H PRN IVP Itching 11/06/17 17:00 12/06/17 16:59 Doxycycline Hyclate 100 mg/ Sodium Chloride 110 ml @ 110 mls/hr BID@1000,2200 IV 11/08/17 12:00 11/15/17 11:59 11/08/17 12:11 Fexofenadine HCl (Sima) 60 mg TWICE A DAY ORAL 11/06/17 18:00 12/06/17 17:59 11/08/17 09:30 Finasteride (Proscar) 2.5 mg QHS ORAL 11/07/17 21:00 12/07/17 20:59 11/07/17 20:51 Hydromorphone HCl (Dilaudid) 0.5 mg Q4H PRN IVP Unrelieved Xfg-lo-Avskih Pain 11/06/17 17:15 11/13/17 17:14 11/07/17 22:36 Ketorolac Tromethamine (Toradol 30mg) 30 mg Q6HR IV 11/06/17 17:30 11/11/17 17:29 11/08/17 11:59 Mercaptopurine (Purinethol) 25 mg QHS ORAL 11/08/17 21:00 11/13/17 20:59 Ondansetron HCl (Zofran) 4 mg Q6H PRN IVP Nausea & Vomiting 11/04/17 23:30 12/04/17 23:29 Oseltamivir Phosphate (Tamiflu) 75 mg TWICE A DAY ORAL 11/06/17 18:00 11/11/17 17:59 11/08/17 09:30 Prochlorperazine (Compazine) 10 mg Q6H PRN IVP Nausea & Vomiting 11/07/17 10:15 12/07/17 10:14 Promethazine HCl/ Codeine (Phenergan with Codeine) 5 ml Q4H PRN ORAL For Cough 11/05/17 00:15 12/05/17 00:14 11/07/17 12:13 Sodium Chloride 1,000 ml @ 100 mls/hr Q10H IV 11/07/17 10:00 12/07/17 09:59 11/08/17 07:50 Zolpidem Tartrate (Ambien) 5 mg HSPRN PRN ORAL Insomnia 11/06/17 17:00 11/13/17 16:59 ANABELA MICHAEL Nov 08, 2017 13:07
[2017-11-08] MEDS: Azithromycin 500 MG in D5W 275 ML IV SCH (14:50)
[2017-11-08 16:50] VITALS: BP 135/86
--- NOTE | 2017-11-08 16:58 | General Progress Note ---
Assessment/Plan Problem List: (1) SIRS (systemic inflammatory response syndrome) ICD Codes: R65.10 - Systemic inflammatory response syndrome (SIRS) of non- infectious origin without acute organ dysfunction SNOMED: 191494734 (2) Febrile illness, acute ICD Codes: R50.9 - Fever, unspecified SNOMED: 024161931 (3) Transaminitis ICD Codes: R74.0 - Nonspecific elevation of levels of transaminase and lactic acid dehydrogenase [LDH] SNOMED: 460324894, 493481743 (4) Elevated liver function tests ICD Codes: R79.89 - Other specified abnormal findings of blood chemistry SNOMED: 685697689, 761960178 (5) Dehydration ICD Codes: E86.0 - Dehydration SNOMED: 50046288 (6) Hyponatremia ICD Codes: E87.1 - Hypo-osmolality and hyponatremia SNOMED: 68938309 (7) History of Crohn's disease ICD Codes: Z87.19 - Personal history of other diseases of the digestive system SNOMED: 204527128802997 Status: stable Assessment/Plan Unclear etiology. Possibly viral illness. Given elevated LFTs, consider EBV as an etiology ID consulted, appreciate rec's Cont tamiflu (11/06-). Influenza rapid test neg but maybe false positive. No PCR test available at [facility] [place] Repeat blood cultures x 2 today Restart ceftriaxone given high fevers Add azithro for possive Pertusis Add doxy to cover atypicals such as Ricketsia, Lyme's Consider atypical coverage if fevers persist F/u blood cultures from admission--ngtd F/u EBV, monospot, hepatitis panel, HIV, CMV Check ECHO Trend LFTs Check U/S abd D/w ID who recommends CT chest/abd/pelvis and also CT head (c/o headache) given high fevers for almost 2 weeks mIVFs Tylenol + trial of Ketorlac (risks discussed and pt wishes to try it) Consider further CT chest/abd/pelvis if fevers persist Consider LP given c/o severe headache pending CT Pain control, bowel regimen Supportive care DVT ppx: early ambulation. pt refusing hsq FULL CODE D/w pt, mother, ID, RN extensively regarding plan of care and dispo Subjective Date patient seen: Nov 08, 2017 Time patient seen: 16:54 ROS Limited/Unobtainable: No Constitutional: Reports: fever, malaise, weakness HEENT: Reports: throat pain Cardiovascular: Reports: no symptoms Respiratory: Reports: cough, shortness of breath Gastrointestinal/Abdominal: Reports: no symptoms Genitourinary: Reports: no symptoms Neurologic/Psychiatric: Reports: headache Endocrine: Reports: no symptoms Hematologic/Lymphatic: Reports: no symptoms Allergies: Coded Allergies: No Known Allergies (Unverified , 11/04/17) Subjective Fevers up to 102 overnight and this AM Pt states Toradol helps with fevers and pain. Still not feeling well. Cont w/ coughing fits, sinus pain, headaches, lethargy. Appetite ok Objective Last 24 Hour Vital Signs Date Time Temp Pulse Resp B/P (MAP) Pulse Ox O2 Delivery O2 Flow Rate FiO2 11/08/17 12:29 99.5 11/08/17 12:00 99.5 100 19 117/74 97 11/08/17 08:00 100.3 68 19 100/57 96 11/08/17 06:45 99.1 11/08/17 04:00 102.3 126 19 125/89 97 11/08/17 04:00 97 Room Air 11/08/17 00:00 97 Room Air 11/08/17 00:00 101.2 116 18 121/68 97 11/07/17 20:00 100.9 116 18 110/73 97 11/07/17 20:00 97 Room Air 11/07/17 17:56 102.0 11/07/17 17:56 102.0 Intake and Output 11/07/17 11/08/17 19:00 07:00 Intake Total 1600 ml 200 ml Balance 1600 ml 200 ml Intake Oral 750 ml IV Total 850 ml 200 ml # Voids 3 2 Laboratory Tests 11/08/17 06:15: White Blood Count 7.0, Red Blood Count 4.21L, Hemoglobin 13.2L, Hematocrit 37.8L , Mean Corpuscular Volume 90, Mean Corpuscular Hemoglobin 31.4H, Mean Corpuscular Hemoglobin Concent 35.0, Red Cell Distribution Width 12.1, Platelet Count 263, Mean Platelet Volume 4.7L, Neutrophils (%) (Auto) 38.3L, Lymphocytes (%) (Auto) 41.6, Monocytes (%) (Auto) 17.3H, Eosinophils (%) (Auto) 2.2, Basophils (%) (Auto) 0.7, Erythrocyte Sedimentation Rate 27H, Sodium Level 133L , Potassium Level 3.7, Chloride Level 100, Carbon Dioxide Level 25, Anion Gap 8 , Blood Urea Nitrogen 7, Creatinine 0.8, Estimat Glomerular Filtration Rate > 60 , Glucose Level 112H, Calcium Level 8.2L, Total Bilirubin 0.4, Aspartate Amino Transf (AST/SGOT) 144H, Alanine Aminotransferase (ALT/SGPT) 286H, Alkaline Phosphatase 159H, Lactate Dehydrogenase 516H, Total Protein 6.9, Albumin 2.9L, Globulin 4.0, Albumin/Globulin Ratio 0.7L 11/08/17 11:30: Rapid Plasma Reagin [Pending], Bartonella henselae IgG Antibody [Pending], Bartonella henselae IgM Antibody [Pending], HIV (1&2) Antibody Rapid Negative, Q Fever Phase I IgG Antibody [Pending], Q Fever Phase II IgG Antibody [Pending] , Rickettsia IgG Ab ([facility] Fever) [Pending], Rickettsia IgM Ab ([facility] Fever) [Pending] Height (Feet): 5 Height (Inches): 4.00 Weight (Pounds): 130 Objective General: alert, cooperative, no distress, appears stated age Head: normocephalic, without obvious abnormality, atraumatic Eyes: conjunctivae/corneas clear. PERRL, EOM's intact Throat: lips, mucosa, and tongue normal. MMM Neck: supple, symmetrical, trachea midline, and no JVD Lungs: clear to auscultation bilaterally Heart: regular rate and rhythm, S1, S2 normal, no murmur, click, rub or gallop Abdomen: soft, non-tender, non-distended, bowel sounds normal Extremities: extremities normal, atraumatic, no cyanosis or edema Pulses: 2+ and symmetric Skin: skin color, texture, turgor normal; no rashes or lesions Neurologic: grossly normal, no focal deficits Salina Driver M.D. Nov 08, 2017 16:58
[2017-11-08] MEDS ORDERED: guaiFENesin DM 100mg/5ml ORAL PRN (17:00)
[2017-11-08 20:00] VITALS: BP 113/74
[2017-11-08] MEDS: MERCAPTOPURINE ORAL SCH (20:33)
[2017-11-08] MEDS: Hydromorphone 0.5mg/0.5ml inj IVP PRN (20:34)
[2017-11-09] VITALS: BP 126/86
[2017-11-09] MEDS: NS w/KCl 20mEq 1,000 ML IV SCH ×3 (02:04→21:20)
[2017-11-09 04:00] VITALS: BP 106/74
[2017-11-09] MEDS: Ketorolac 30mg Inj IV SCH ×4 (06:13→18:03)
[2017-11-09 08:48] LABS: BASOPHILS % (AUTO) 0.4 % (0.0-2.0); EOSINOPHILS % (AUTO) 2.3 % (0.0-3.0); HEMOGLOBIN 13.8 G/DL (14.2-18.0); LYMPHOCYTES % (AUTO) 51.7 % (20.0-45.0); MEAN CORPUSCULAR VOLUME 89 FL (80-99); MONOCYTES % (AUTO) 8.9 % (1.0-10.0); NEUTROPHILS % (AUTO) 36.8 % (45.0-75.0); PLATELET COUNT 284 K/UL (150-450); RED BLOOD COUNT 4.47 M/UL (4.70-6.10); RED CELL DISTRIBUTION WIDTH 12.2 % (11.6-14.8); WHITE BLOOD COUNT 6.9 K/UL (4.8-10.8)
[2017-11-09] MEDS ORDERED: cefTRIAXone 1 GM in NS 55 ML IVPB SCH (09:00)
[2017-11-09 09:05] LABS: ALANINE AMINOTRANSFERASE 263 U/L (12-78); ALKALINE PHOSPHATASE 156 U/L (46-116); ANION GAP 7 mmol/L (5-15); ASPARTATE AMINO TRANSFERASE 113 U/L (15-37); BILIRUBIN,DIRECT 0.1 MG/DL (0.0-0.3); BILIRUBIN,TOTAL 0.5 MG/DL (0.2-1.0); BLOOD UREA NITROGEN 8 mg/dL (7-18); CALCIUM 8.6 MG/DL (8.5-10.1); CARBON DIOXIDE 28 MMOL/L (21-32); CHLORIDE 102 MMOL/L (98-107); CREATININE 0.9 MG/DL (0.55-1.30); POTASSIUM 3.9 MMOL/L (3.5-5.1); SODIUM 137 MMOL/L (136-145)
[2017-11-09] MEDS: Doxycycline Hyclate 100 MG in NS 110 ML IV SCH ×2 (09:50→22:40)
[2017-11-09] MEDS: Oseltamivir 75mg cap ORAL SCH ×2 (09:50→18:08)
[2017-11-09] MEDS: cefTRIAXone 1 GM in NS 55 ML IVPB SCH (09:50)
[2017-11-09] MEDS ORDERED: Pseudoephedrine 30mg tab ORAL PRN (10:30)
--- NOTE | 2017-11-09 10:33 | General Progress Note ---
Assessment/Plan Problem List: (1) SIRS (systemic inflammatory response syndrome) ICD Codes: R65.10 - Systemic inflammatory response syndrome (SIRS) of non- infectious origin without acute organ dysfunction SNOMED: 748545221 (2) Febrile illness, acute ICD Codes: R50.9 - Fever, unspecified SNOMED: 875219867 (3) Transaminitis ICD Codes: R74.0 - Nonspecific elevation of levels of transaminase and lactic acid dehydrogenase [LDH] SNOMED: 031153964, 985022863 (4) Elevated liver function tests ICD Codes: R79.89 - Other specified abnormal findings of blood chemistry SNOMED: 194736914, 507109957 (5) Dehydration ICD Codes: E86.0 - Dehydration SNOMED: 99284381 (6) Hyponatremia ICD Codes: E87.1 - Hypo-osmolality and hyponatremia SNOMED: 15485068 (7) History of Crohn's disease ICD Codes: Z87.19 - Personal history of other diseases of the digestive system SNOMED: 453978187507987 (8) Hepatomegaly ICD Codes: R16.0 - Hepatomegaly, not elsewhere classified SNOMED: 46756271 Status: stable Assessment/Plan Unclear etiology. Possibly viral illness. Given elevated LFTs, consider EBV as an etiology ID consulted, appreciate rec's Cont tamiflu (11/06-) x 5dats. Influenza rapid test neg but maybe false positive. No PCR test available at [facility] [place] F/u repeat blood cultures form 11/08/17 Cont ceftriaxone, azithro and doxy per ID F/u blood cultures from admission--ngtd F/u EBV, monospot, CMV HIV neg, hepatitis panel neg CT head, c/a/p reviewed and showed no source of infection; showed hepatomegaly GI consulted Cont 6-mercaptopurine 25mg daily for maintenance treatment for now F/u ECHO F/u U/S abx Trend LFTs mIVFs Tylenol + trial of Ketorlac (risks discussed and pt wishes to try it) Consider LP if fevers persist Pain control, bowel regimen Supportive care DVT ppx: early ambulation. pt refusing hsq FULL CODE D/w pt, mother, ID, RN extensively regarding plan of care and dispo Subjective Date patient seen: Nov 09, 2017 Time patient seen: 10:33 ROS Limited/Unobtainable: No Constitutional: Reports: weakness HEENT: Reports: no symptoms, throat pain Cardiovascular: Reports: no symptoms Respiratory: Reports: cough, shortness of breath Gastrointestinal/Abdominal: Reports: no symptoms Neurologic/Psychiatric: Reports: no symptoms Endocrine: Reports: no symptoms Hematologic/Lymphatic: Reports: no symptoms Allergies: Coded Allergies: No Known Allergies (Unverified , 11/04/17) Subjective Fever to 102 o/n Pt states Toradol helps with fevers and pain. Feels fevers less frequent. Cough improved. Headache better. Objective Last 24 Hour Vital Signs Date Time Temp Pulse Resp B/P (MAP) Pulse Ox O2 Delivery O2 Flow Rate FiO2 11/09/17 04:00 98.7 102 18 106/74 97 11/09/17 01:25 100.6 11/09/17 00:35 102.7 11/09/17 00:00 101.5 116 19 126/86 98 11/08/17 20:00 100.3 112 20 113/74 95 11/08/17 18:25 99.8 11/08/17 16:50 99.8 100 19 135/86 98 11/08/17 12:00 99.5 100 19 117/74 97 Intake and Output 11/08/17 11/09/17 19:00 07:00 Intake Total 455 ml 240 ml Balance 455 ml 240 ml Intake Oral 240 ml 240 ml IV Total 215 ml # Voids 1 Laboratory Tests 11/08/17 11:30: Rapid Plasma Reagin Non reactive, Bartonella henselae IgG Antibody [Pending], Bartonella henselae IgM Antibody [Pending], HIV (1&2) Antibody Rapid Negative, Q Fever Phase I IgG Antibody [Pending], Q Fever Phase II IgG Antibody [Pending] , Rickettsia IgG Ab ([place] Fever) [Pending], Rickettsia IgM Ab (Samuel [place] Fever) [Pending] 11/08/17 18:15: Urine Legionella Antigen [Pending] 11/09/17 07:44: White Blood Count 6.9, Red Blood Count 4.47L, Hemoglobin 13.8L, Hematocrit 40.0L , Mean Corpuscular Volume 89, Mean Corpuscular Hemoglobin 30.9, Mean Corpuscular Hemoglobin Concent 34.6, Red Cell Distribution Width 12.2, Platelet Count 284, Mean Platelet Volume 5.2L, Neutrophils (%) (Auto) 36.8L, Lymphocytes (%) (Auto) 51.7H, Monocytes (%) (Auto) 8.9, Eosinophils (%) (Auto) 2.3, Basophils (%) (Auto) 0.4, Sodium Level 137, Potassium Level 3.9, Chloride Level 102, Carbon Dioxide Level 28, Anion Gap 7, Blood Urea Nitrogen 8, Creatinine 0.9 , Estimat Glomerular Filtration Rate > 60, Glucose Level 106, Calcium Level 8.6 , Total Bilirubin 0.5, Direct Bilirubin 0.1, Aspartate Amino Transf (AST/SGOT) 113H, Alanine Aminotransferase (ALT/SGPT) 263H, Alkaline Phosphatase 156H, Total Protein 7.3, Albumin 3.0L, Brucella IgG Antibody [Pending], Brucella IgM Antibody [Pending], Chlamydia Specimen Information [Pending], Chlamydia pneumoniae IgG Antibody [Pending], Chlamydia pneumoniae IgM Antibody [Pending], Chlamydia trachomatis IgG Ab Titer [Pending], Chlamydia trachomatis IgM Ab Titer [Pending], Chlamydia psittaci IgG Ab Titer [Pending], Chlamydia psittaci IgM Ab Titer [Pending], Coccidioides Antibody (Comp Fix) [Pending], Cryptococcus Antigen [Pending], Hepatitis B Surface Antibody [Pending], Mycoplasma pneumoniae IgG Antibody [Pending], Mycoplasma pneumoniae IgM Ab Titer [Pending], TB Test (T-Spot) [Pending], TB Test Nil Control (T-Spot) [ Pending], TB Test Panel A (T-Spot) [Pending], TB Test Panel B (T-Spot) [Pending] , TB Test Positive Control (T-Spot) [Pending] Height (Feet): 5 Height (Inches): 4.00 Weight (Pounds): 130 Objective General: alert, cooperative, no distress, appears stated age Head: normocephalic, without obvious abnormality, atraumatic Eyes: conjunctivae/corneas clear. PERRL, EOM's intact Throat: lips, mucosa, and tongue normal. MMM Neck: supple, symmetrical, trachea midline, and no JVD Lungs: clear to auscultation bilaterally Heart: regular rate and rhythm, S1, S2 normal, no murmur, click, rub or gallop Abdomen: soft, non-tender, non-distended, bowel sounds normal Extremities: extremities normal, atraumatic, no cyanosis or edema Pulses: 2+ and symmetric Skin: skin color, texture, turgor normal; no rashes or lesions Neurologic: grossly normal, no focal deficits Salina Driver M.D. Nov 09, 2017 10:33
[2017-11-09] MEDS ORDERED: Pseudoephedrine 30mg tab ORAL ONE (10:45)
[2017-11-09 12:00] VITALS: BP 108/71
--- NOTE | 2017-11-09 12:55 | Consultation ---
DATE OF CONSULTATION: 11/07/2017 INFECTIOUS DISEASE CONSULTATION ATTENDING PHYSICIAN: Salina Driver M.D. REASON FOR CONSULTATION: Fevers. The patient's chief complaint coming into the hospital with dehydration and fevers. HISTORY OF PRESENT ILLNESS: This is a 47-year-old male who has been noted over the last week to 10 days of fatigue, fevers, and cough that has been intensifying. The patient saw a primary doctor and influenza screen he said was negative. The patient was given looks like a day or two of Tamiflu. The patient noted that his fevers persisted and became worse. The patient is admitted to [facility] for fevers and dehydration. The patient has a cough and headache and congestion, but no yellow green sputum production. Chest x-ray has been negative. Infectious Disease consultation is requested for antibiotic management. In addition to fevers, he has been having chills. The patient was started on Rocephin and Tamiflu. The patient also is noted to have elevated LFTs. PAST MEDICAL HISTORY: He has history of Crohn disease. No history of diabetes or hypertension. MEDICATIONS: Prior to admission included benzonatate or Tessalon, mercaptopurine, Proscar, finasteride, and promethazine cough syrup. He is currently on medications here, Proscar; Compazine; Tamiflu; Sima; Tylenol; Rocephin, which I will discontinue; Toradol; Dilaudid; Benadryl; Ambien; promethazine; Zofran; albuterol treatments and as discussed earlier, he is on mercaptopurine in an outpatient setting. Outside medications noted and reconciled. ALLERGIES: No known drug allergies. FAMILY HISTORY: Noncontributory. SOCIAL HISTORY: Negative for smoking, alcohol, or drug abuse. REVIEW OF SYSTEMS: CONSTITUTIONAL: No focal weakness. He had generalized fatigue, fever and chills. HEAD AND NECK: He has a headache on the left side of his head. No particular neck stiffness. No significant pharyngitis. He has some mild cough and congestion and sinus discomfort. PULMONARY: He has cough and congestion, however, no significant secretions or yellow green sputum production. SKIN: No rash or itching. EXTREMITIES: No extremity pain. NEUROLOGIC: No seizures. GASTROINTESTINAL: No nausea, vomiting, or diarrhea. CARDIAC: No chest pain or palpitations. PHYSICAL EXAMINATION: GENERAL: Alert and responsive, in no acute distress. Nontoxic appearing. VITAL SIGNS: Temperature 100.7 degrees and now it is 99.2 degrees, pulse rate 97, respiratory rate 19, blood pressure 120/71, and saturation 97%. T-max has been as high as 101.4 degrees two days ago and also yesterday. Temperature 99.2 degrees, pulse rate 97, respiratory rate 19, blood pressure 122/71 and saturation 97%. T-max today is 100.7 degrees. HEAD AND NECK: Oral exam, there is no obvious thrush. No obvious significant pharyngitis. Eye exam, no icterus. Normocephalic. No facial droop. No neck stiffness. Neck is very supple. HEART: Regular. No gallop or murmur. ABDOMEN: Soft. Positive bowel sounds. Nontender. LUNGS: Clear bilaterally. SKIN: No rash. MUSCULOSKELETAL: No effusion. Legs without cellulitis. PERIPHERAL VASCULAR: No cyanosis or gangrene. GENITOURINARY: No Escobar. RECTAL: Deferred. LINES: Line sites without phlebitis. NEUROLOGIC: Intact. Nonfocal. LABORATORY AND DIAGNOSTIC DATA: Laboratory data is as follows. White count 5.8 and hemoglobin 14.3. The patient's creatinine is 0.9. Again, white count 5.8 and hemoglobin 14.3, elevated monocytes noted. Creatinine is 0.9. LFTs were elevated, AST is 139, ALT 278 and alkaline phosphatase is 156. Total bilirubin is normal. UA was 2 to 4 white cells. Cultures, urine culture negative. Blood culture is negative. Influenza screen here is negative. Chest x-ray has been negative for pneumonia. This is noted and reviewed. No acute process. Maxillofacial CT scan showed no evidence of sinusitis and was unremarkable. Serology has been ordered for CMV, EBV, Monospot, HIV, and influenza screen is negative. Blood culture is negative. ASSESSMENT AND PLAN: 1. The patient has fevers, likely viral syndrome with elevated monocytes. Rule out influenza. Influenza screen here is negative, but it is not PCR test and thus I would continue treat for influenza day #2 with Tamiflu, which I started yesterday. I will stop the Rocephin since he has no evidence of bacterial infection. CT scan of the sinuses was negative. Chest x-ray was negative. He has a clear sputum production and cough, no yellow or green sputum production. Continue Tamiflu day #2/5. Check serology. Discontinue Rocephin and watch temperatures closely. The patient does have elevated liver function tests and this could be due to Tylenol; however, hepatitis screen has also been ordered. We will follow up on that. Watch laboratories. Watch temperatures. 2. Crohn disease. 3. Pain management per primary. 4. Headache. 5. I doubt the patient has meningitis clinically. 6. No known allergies. 7. MAR was noted. 8. Case was discussed with RN.. 9. Continue treatment per primary consultants. 10. Case discussed with Dr. Downing. Gracy Middleton M.D. DR: MIKA JOB#: [id number] CC:
--- NOTE | 2017-11-09 13:06 | Infectious Diseases Prog Note ---
Assessment/Plan Assessment/Plan A) 1) fevers, cough, headache, elevated LDH and lft's, sig hepatomegaly, mild splenomegaly, ? viral, ? bacterial, ? fungal, ? other 2) Crohn's dx with immunosuppression tx 3) [place] - doubt meningitis 4) allergies - negative, sh-negative, fh-nc, mar noted, notes and records noted 5) d/w RN and patient at length P) 1) tamiflu - day # 4/5, rocephin, doxycycline, azithromycin 2) f/u on serology, check final imaging report and echo, check labs and blood cultures 3) d/w Dr. Downing and patient 4) orders noted and entered 5) GI evaluation Subjective Constitutional: Reports: fever, fatigue, Denies: chills HEENT: Denies: congestion Respiratory: Reports: dry cough - less, Denies: shortness of breath Cardiovascular: Denies: chest pain Gastrointestinal/Abdominal: Denies: nausea, vomiting, diarrhea Genitourinary: Denies: dysuria, hematuria Neurologic: Reports: headache - less Psychiatric: Denies: depression Skin: Denies: rash Hematologic: Denies: bleeding Musculoskeletal: Denies: pain Allergies: Coded Allergies: No Known Allergies (Unverified , 11/04/17) Objective Vital Signs Last 24 Hour Vital Signs Date Time Temp Pulse Resp B/P (MAP) Pulse Ox O2 Delivery O2 Flow Rate FiO2 11/09/17 04:00 98.7 102 18 106/74 97 11/09/17 01:25 100.6 11/09/17 00:35 102.7 11/09/17 00:00 101.5 116 19 126/86 98 11/08/17 20:00 100.3 112 20 113/74 95 11/08/17 18:25 99.8 11/08/17 16:50 99.8 100 19 135/86 98 Height (Feet): 5 Height (Inches): 4.00 Weight (Pounds): 130 General Appearance: no acute distress HEENT: normocephalic, atraumatic, anicteric, mucous membranes moist Respiratory/Chest: lungs clear, normal breath sounds, no respiratory distress, no accessory muscle use Cardiovascular: normal rate, regular rhythm, no gallop/murmur, no JVD Abdomen: normal bowel sounds, soft, non tender, no organomegaly, non distended Genitourinary: other - no Extremities: no cyanosis Skin: no rash 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, alert, oriented x 3, responsive Lymphatic: no neck adenopathy Musculoskeletal: no effusion Objective chest x-ray - negative CT scan - final reading pending - d/w Radiology and said significant hepatomegaly and mild splenomegaly Microbiology Date/Time Source Procedure Growth Status 11/04/17 19:35 Blood Blood Culture - Preliminary NO GROWTH AFTER 4 DAYS Resulted 11/06/17 13:40 Nasal Nares Influenza Types A,B Antigen (CHRISTIAN) - Final Complete 11/04/17 19:35 Urine,Clean Catch Urine Culture - Final Mixed Gram Positive Organism Complete Microbiology Date/Time Source Procedure Growth Status 11/06/17 13:40 Nasal Nares Influenza Types A,B Antigen (CHRISTIAN) - Final Complete Laboratory Tests Test 11/08/17 18:15 11/09/17 07:44 Urine Legionella Antigen Pending White Blood Count 6.9 K/UL (4.8-10.8) Red Blood Count 4.47 M/UL (4.70-6.10) L Hemoglobin 13.8 G/DL (14.2-18.0) L Hematocrit 40.0 % (42.0-52.0) L Mean Corpuscular Volume 89 FL (80-99) Mean Corpuscular Hemoglobin 30.9 PG (27.0-31.0) Mean Corpuscular Hemoglobin Concent 34.6 G/DL (32.0-36.0) Red Cell Distribution Width 12.2 % (11.6-14.8) Platelet Count 284 K/UL (150-450) Mean Platelet Volume 5.2 FL (6.5-10.1) L Neutrophils (%) (Auto) 36.8 % (45.0-75.0) L Lymphocytes (%) (Auto) 51.7 % (20.0-45.0) H Monocytes (%) (Auto) 8.9 % (1.0-10.0) Eosinophils (%) (Auto) 2.3 % (0.0-3.0) Basophils (%) (Auto) 0.4 % (0.0-2.0) Sodium Level 137 MMOL/L (136-145) Potassium Level 3.9 MMOL/L (3.5-5.1) Chloride Level 102 MMOL/L (98-107) Carbon Dioxide Level 28 MMOL/L (21-32) Anion Gap 7 mmol/L (5-15) Blood Urea Nitrogen 8 mg/dL (7-18) Creatinine 0.9 MG/DL (0.55-1.30) Estimat Glomerular Filtration Rate > 60 mL/min (>60) Glucose Level 106 MG/DL (74-106) Calcium Level 8.6 MG/DL (8.5-10.1) Total Bilirubin 0.5 MG/DL (0.2-1.0) Direct Bilirubin 0.1 MG/DL (0.0-0.3) Aspartate Amino Transf (AST/SGOT) 113 U/L (15-37) H Alanine Aminotransferase (ALT/SGPT) 263 U/L (12-78) H Alkaline Phosphatase 156 U/L (46-116) H Total Protein 7.3 G/DL (6.4-8.2) Albumin 3.0 G/DL (3.4-5.0) L Brucella IgG Antibody Pending Brucella IgM Antibody Pending Chlamydia Specimen Information Pending Chlamydia pneumoniae IgG Antibody Pending Chlamydia pneumoniae IgM Antibody Pending Chlamydia trachomatis IgG Ab Titer Pending Chlamydia trachomatis IgM Ab Titer Pending Chlamydia psittaci IgG Ab Titer Pending Chlamydia psittaci IgM Ab Titer Pending Coccidioides Antibody (Comp Fix) Pending Cryptococcus Antigen Pending Hepatitis B Surface Antibody Pending Mycoplasma pneumoniae IgG Antibody Pending Mycoplasma pneumoniae IgM Ab Titer Pending TB Test (T-Spot) Pending TB Test Nil Control (T-Spot) Pending TB Test Panel A (T-Spot) Pending TB Test Panel B (T-Spot) Pending TB Test Positive Control (T-Spot) Pending serology - hiv negative hepatitis panel - negative other serology pending Current Medications Medications (Trade) Dose Ordered Sig/Mark Route PRN Reason Start Time Stop Time Status Last Admin Dose Admin Acetaminophen (Tylenol) 500 mg Q6H PRN ORAL Headache/Temp > 101 11/06/17 18:00 12/06/17 17:59 11/07/17 16:43 Albuterol/ Ipratropium (Albuterol/ Ipratropium) 3 ml Q6HRT PRN HHN Shortness of Breath 11/04/17 23:30 11/09/17 23:29 Azithromycin 500 mg/Dextrose 275 ml @ 275 mls/hr Q24HRS IV 11/08/17 13:00 11/14/17 13:59 11/08/17 14:50 Ceftriaxone Sodium 1 gm/ Sodium Chloride 55 ml @ 110 mls/hr DAILY IVPB 11/08/17 10:45 11/15/17 10:44 11/09/17 09:50 Cetylpyridinium Chloride (Cepacol) 1 lozg Q2H PRN KORIN sore throat 11/08/17 17:00 12/08/17 16:59 Diphenhydramine HCl (Benadryl) 25 mg Q6H PRN IVP Itching 11/06/17 17:00 12/06/17 16:59 Doxycycline Hyclate 100 mg/ Sodium Chloride 110 ml @ 110 mls/hr BID@1000,2200 IV 11/08/17 12:00 11/15/17 11:59 11/09/17 09:50 Finasteride (Proscar) 2.5 mg QHS ORAL 11/07/17 21:00 12/07/17 20:59 11/08/17 20:33 Guaifenesin/ Dextromethorphan (Robitussin DM) 10 ml Q4H PRN ORAL For Cough 11/08/17 17:00 12/08/17 16:59 Hydromorphone HCl (Dilaudid) 0.5 mg Q4H PRN IVP Unrelieved [id number] Pain 11/06/17 17:15 11/13/17 17:14 11/08/17 20:34 Ketorolac Tromethamine (Toradol 30mg) 30 mg Q6HR IV 11/06/17 17:30 11/11/17 17:29 11/09/17 06:13 Mercaptopurine (Purinethol) 25 mg QHS ORAL 11/08/17 21:00 11/13/17 20:59 11/08/17 20:33 Ondansetron HCl (Zofran) 4 mg Q6H PRN IVP Nausea & Vomiting 11/04/17 23:30 12/04/17 23:29 Oseltamivir Phosphate (Tamiflu) 75 mg TWICE A DAY ORAL 11/06/17 18:00 11/11/17 17:59 11/09/17 09:50 Prochlorperazine (Compazine) 10 mg Q6H PRN IVP Nausea & Vomiting 11/07/17 10:15 12/07/17 10:14 Pseudoephedrine HCl (Sudafed) 30 mg Q6H PRN ORAL sinus pain, congestion 11/09/17 10:30 12/09/17 10:29 Sodium Chloride 1,000 ml @ 100 mls/hr Q10H IV 11/07/17 10:00 12/07/17 09:59 11/09/17 06:05 Zolpidem Tartrate (Ambien) 5 mg HSPRN PRN ORAL Insomnia 11/06/17 17:00 11/13/17 16:59 ANABELA MICHAEL Nov 09, 2017 13:06
[2017-11-09] MEDS: Azithromycin 500 MG in D5W 275 ML IV SCH (13:39)
--- NOTE | 2017-11-09 13:46 | GI Initial Consult Note ---
History of Present Illness General Date patient seen: Nov 09, 2017 Time patient seen: 13:34 Reason for Hospitalization: Upper Respiratory Illness Referring physician: Dr. Esposito Reason for Consultation: HEPATOMEGALY Present Illness HPI 47 YO Male presents to the ED c/o cough,congestion body-aches, fevers, chills and headaches with decreased appetite and fluid in-take x9 days. Patient has been treated with multiple outpatient medications and cough syrups. His primary care doctor also did influenza screening which came back as negative. Continues to have progressive symptoms. Reports history of immunocompromise due to medication for Crohn's disease. Denies abdominal pain, constipation, diarrhea. He reports that he took 1000 mg Tylenol prior to arrival 4 PM. Patient states he's been taking Tylenol consistently for fever reduction and only has relief of his symptoms for up to 4 hours. Denies CP, Palpitations, LOC , AMS, dizziness, Changes in Vision, Sensation, paresthesias, or a sudden severe headache. GI consulted for hepatomegaly. Pt seen on floor, awake A&Ox4 NAD with no active s/sx of N/V/D, afebrile ambulating c/o of periods bouts of diarrhea. Patient states he taken a large amounts of medications to alleviate his flu like symptoms, more than the recommended amounts. He has a history of Crohn's s /p resection back in 2000 currently on low dose 6-MP 25mg. He presents today with transaminitis, elevated alkaline phosphatase, and reported hepatomegaly on CT. Denies any abdominal pain, tolerating food. Home Meds Reported Medications Finasteride* (PROSCAR*) 5 Mg Tablet, 5 MG ORAL DAILY, #30 TAB 0 Refills 11/04/17 Mercaptopurine (MERCAPTOPURINE) 50 Mg Tablet, 50 MG PO HS, TAB 11/04/17 Promethazine HCl/Codeine (Prometh-Codein 6.25-10 mg/5 ml) 5 Ml Syrup, 10 ML PO HS, ML 11/04/17 Benzonatate* (TESSALON PERLE*) 100 Mg Capsule, 100 MG ORAL THREE TIMES A DAY, PERLE 11/04/17 Med list reviewed/reconciled: Yes Allergies: Coded Allergies: No Known Allergies (Unverified , 11/04/17) Patient History PMH Narrative Past Medical History: see triage record Past Surgical History: none Pertinent Family History: none Immunizations: UTD Reviewed Nursing Documentation: PMH: Agreed, PSxH: Agreed Nursing Documentation-PMH Hx Gastrointestinal Problems: Yes - Crohn's Social History: Denies: smoking, alcohol use, drug use, other Review of Systems All Other Systems: negative except mentioned in HPI Physical Exam Vital Signs Date Time Temp Pulse Resp B/P (MAP) Pulse Ox O2 Delivery O2 Flow Rate FiO2 11/05/17 08:00 100.6 101 18 107/71 94 Room Air Sp02 EP Interpretation: reviewed, normal Labs Laboratory Tests Test 11/08/17 18:15 11/09/17 07:44 Urine Legionella Antigen Pending White Blood Count 6.9 K/UL (4.8-10.8) Red Blood Count 4.47 M/UL (4.70-6.10) L Hemoglobin 13.8 G/DL (14.2-18.0) L Hematocrit 40.0 % (42.0-52.0) L Mean Corpuscular Volume 89 FL (80-99) Mean Corpuscular Hemoglobin 30.9 PG (27.0-31.0) Mean Corpuscular Hemoglobin Concent 34.6 G/DL (32.0-36.0) Red Cell Distribution Width 12.2 % (11.6-14.8) Platelet Count 284 K/UL (150-450) Mean Platelet Volume 5.2 FL (6.5-10.1) L Neutrophils (%) (Auto) 36.8 % (45.0-75.0) L Lymphocytes (%) (Auto) 51.7 % (20.0-45.0) H Monocytes (%) (Auto) 8.9 % (1.0-10.0) Eosinophils (%) (Auto) 2.3 % (0.0-3.0) Basophils (%) (Auto) 0.4 % (0.0-2.0) Sodium Level 137 MMOL/L (136-145) Potassium Level 3.9 MMOL/L (3.5-5.1) Chloride Level 102 MMOL/L (98-107) Carbon Dioxide Level 28 MMOL/L (21-32) Anion Gap 7 mmol/L (5-15) Blood Urea Nitrogen 8 mg/dL (7-18) Creatinine 0.9 MG/DL (0.55-1.30) Estimat Glomerular Filtration Rate > 60 mL/min (>60) Glucose Level 106 MG/DL (74-106) Calcium Level 8.6 MG/DL (8.5-10.1) Total Bilirubin 0.5 MG/DL (0.2-1.0) Direct Bilirubin 0.1 MG/DL (0.0-0.3) Aspartate Amino Transf (AST/SGOT) 113 U/L (15-37) H Alanine Aminotransferase (ALT/SGPT) 263 U/L (12-78) H Alkaline Phosphatase 156 U/L (46-116) H Total Protein 7.3 G/DL (6.4-8.2) Albumin 3.0 G/DL (3.4-5.0) L Brucella IgG Antibody Pending Brucella IgM Antibody Pending Chlamydia Specimen Information Pending Chlamydia pneumoniae IgG Antibody Pending Chlamydia pneumoniae IgM Antibody Pending Chlamydia trachomatis IgG Ab Titer Pending Chlamydia trachomatis IgM Ab Titer Pending Chlamydia psittaci IgG Ab Titer Pending Chlamydia psittaci IgM Ab Titer Pending Coccidioides Antibody (Comp Fix) Pending Cryptococcus Antigen Pending Hepatitis B Surface Antibody Pending Mycoplasma pneumoniae IgG Antibody Pending Mycoplasma pneumoniae IgM Ab Titer Pending TB Test (T-Spot) Pending TB Test Nil Control (T-Spot) Pending TB Test Panel A (T-Spot) Pending TB Test Panel B (T-Spot) Pending TB Test Positive Control (T-Spot) Pending General Appearance: well appearing, no apparent distress, alert Head: normocephalic EENT: PERRL/EOMI, normal ENT inspection Neck: supple Respiratory: normal breath sounds, no respiratory distress Cardiovascular: normal rate Gastrointestinal: normal inspection, non tender, soft, normal bowel sounds, non -distended Rectal: deferred Genitourinary: deferred Musculoskeletal: normal inspection, back normal Neurologic: normal inspection, alert, oriented x3, responsive Psychiatric: normal inspection, judgement/insight normal, memory normal Skin: normal inspection, normal color, no rash, warm/dry, palpation normal, well hydrated Lymphatic: normal inspection, no adenopathy Current Medications Current Medications Medications (Trade) Dose Ordered Sig/Mark Route PRN Reason Start Time Stop Time Status Last Admin Dose Admin Acetaminophen (Tylenol) 500 mg Q6H PRN ORAL Headache/Temp > 101 11/06/17 18:00 12/06/17 17:59 11/07/17 16:43 Albuterol/ Ipratropium (Albuterol/ Ipratropium) 3 ml Q6HRT PRN HHN Shortness of Breath 11/04/17 23:30 11/09/17 23:29 Azithromycin 500 mg/Dextrose 275 ml @ 275 mls/hr Q24HRS IV 11/08/17 13:00 11/14/17 13:59 11/08/17 14:50 Ceftriaxone Sodium 1 gm/ Sodium Chloride 55 ml @ 110 mls/hr DAILY IVPB 11/08/17 10:45 11/15/17 10:44 11/09/17 09:50 Cetylpyridinium Chloride (Cepacol) 1 lozg Q2H PRN KORIN sore throat 11/08/17 17:00 12/08/17 16:59 Diphenhydramine HCl (Benadryl) 25 mg Q6H PRN IVP Itching 11/06/17 17:00 12/06/17 16:59 Doxycycline Hyclate 100 mg/ Sodium Chloride 110 ml @ 110 mls/hr BID@1000,2200 IV 11/08/17 12:00 11/15/17 11:59 11/09/17 09:50 Finasteride (Proscar) 2.5 mg QHS ORAL 11/07/17 21:00 12/07/17 20:59 11/08/17 20:33 Guaifenesin/ Dextromethorphan (Robitussin DM) 10 ml Q4H PRN ORAL For Cough 11/08/17 17:00 12/08/17 16:59 Hydromorphone HCl (Dilaudid) 0.5 mg Q4H PRN IVP Unrelieved Rkg-ex-Rvboze Pain 11/06/17 17:15 11/13/17 17:14 11/08/17 20:34 Ketorolac Tromethamine (Toradol 30mg) 30 mg Q6HR IV 11/06/17 17:30 11/11/17 17:29 11/09/17 06:13 Mercaptopurine (Purinethol) 25 mg QHS ORAL 11/08/17 21:00 11/13/17 20:59 11/08/17 20:33 Ondansetron HCl (Zofran) 4 mg Q6H PRN IVP Nausea & Vomiting 11/04/17 23:30 12/04/17 23:29 Oseltamivir Phosphate (Tamiflu) 75 mg TWICE A DAY ORAL 11/06/17 18:00 11/11/17 17:59 11/09/17 09:50 Prochlorperazine (Compazine) 10 mg Q6H PRN IVP Nausea & Vomiting 11/07/17 10:15 12/07/17 10:14 Pseudoephedrine HCl (Sudafed) 30 mg Q6H PRN ORAL sinus pain, congestion 11/09/17 10:30 12/09/17 10:29 Sodium Chloride 1,000 ml @ 100 mls/hr Q10H IV 11/07/17 10:00 12/07/17 09:59 11/09/17 06:05 Zolpidem Tartrate (Ambien) 5 mg HSPRN PRN ORAL Insomnia 11/06/17 17:00 11/13/17 16:59 GI: Plan Problems: (1) Hepatomegaly (2) Elevated liver function tests (3) Transaminitis Plan hepatitis panel negative ESR mild elevation, will order C-reactive protein r/o flare transaminitis most likely drug-induced hepatomegaly >> infectious vs cholestatic disease vs infiltrative diseases >> fu abdominal U/S fu CT, taken but pending results regular diet, tolerating repeat LFTs cont 6-MP 25mg per primary GI fu labs, CRP, AFP, coags fu utox Discussed with Dr. Babb. Thank you for this patient referral, we will follow. Gracia Mendenhall N.P. Nov 09, 2017 13:45
--- NOTE | 2017-11-09 14:16 | Diagnostic Imaging Report ---
Indication: Headache Technique: Contiguous 5 mm thick transaxial imaging of the head obtained in a Siemens Sensation [address] scanner. Study done with and without contrast. Soft tissue and bone windows generated. Automatic Exposure Control was utilized. Total Dose length Product (DLP): [address] Dose Index Volume (CTDIvol): 0.15 x 3, 70.38 x 2, 8.11, 16.65, 14.25 mGy Comparison: none Findings: The size and configuration of the cortical sulci, basal cisterns, and ventricles are within normal limits for age. There is no mass effect, midline shift, or edema identified. There is no evidence of acute hemorrhage or abnormal intra-axial or extra-axial fluid collections. The bones and soft tissues are unremarkable. No abnormal enhancement appreciated. Impression: No mass effect, edema or acute bleed. The CT scanner at [facility] is accredited by the [employer] and the scans are performed using dose optimization techniques as appropriate to a performed exam including Automatic Exposure control.
--- NOTE | 2017-11-09 14:17 | Diagnostic Imaging Report ---
Indication: Fever and chills cough history of Crohn's disease. Fever of unknown origin. Technique: Continuous helical transaxial imaging of the chest, abdomen and pelvis was obtained from the lung bases to the pubic symphysis during intravenous contrast administration. Multiple phases of enhancement obtained. Coronal 2-D reformats were also obtained. Study obtained in a Siemens sensation [address] Automatic Exposure Control was utilized. Total Dose length Product (DLP): 4235.[address] Dose Index Volume (CTDIvol): 70.38,16.65,70.38,14.25 mGy Comparison: None Findings: Lungs are clear. There is no consolidation, mass, or abnormal fluid collection such as a pleural or pericardial effusion. No adenopathy seen. Mild arterial calcifications are noted. The heart is unremarkable. There is a hiatal hernia present. The liver is enlarged with the left lobe particularly enlarged. On transverse imaging the liver spans 26 cm. Craniocaudal span is about 18 to 19 cm. The liver is low in attenuation diffusely consistent with fatty infiltration. The spleen is prominent measuring between 14 and 15 cm. Kidneys enhance normally. There is no hydronephrosis. There are surgical clips present throughout the abdomen the nature of which is not known. The appendix is not seen. There is no evidence of bowel obstruction. There is no abscess or free fluid identified. Some artifact obscures the epigastric region. No obvious abnormalities of the gallbladder or pancreas are identified. There is no adrenal mass. Both kidneys enhance normally. IMPRESSION: No evidence of malignant neoplasm. No abscess or focus of infection/inflammation identified. Hepatomegaly with fatty infiltration. Mild splenomegaly noted. Atherosclerotic vascular disease Hiatal hernia Findings were discussed via telephone with Dr. Blackwell The CT scanner at [facility] is accredited by the [employer] and the scans are performed using dose optimization techniques as appropriate to a performed exam including Automatic Exposure control.
[2017-11-09 16:00] VITALS: BP 120/82
[2017-11-09] MEDS ORDERED: Tubing IV Secondary IV ONE (17:33)
[2017-11-09 20:00] VITALS: BP 112/68
[2017-11-09] MEDS: MERCAPTOPURINE ORAL SCH (20:04)
[2017-11-10] VITALS: BP 130/84
[2017-11-10] MEDS: Ketorolac 30mg Inj IV SCH ×6 (00:04→22:00)
[2017-11-10] MEDS: Hydromorphone 0.5mg/0.5ml inj IVP PRN (03:28)
[2017-11-10 08:00] VITALS: BP 109/76
[2017-11-10] MEDS: NS w/KCl 20mEq 1,000 ML IV SCH ×2 (08:51→18:17)
[2017-11-10] MEDS: cefTRIAXone 1 GM in NS 55 ML IVPB SCH (08:51)
[2017-11-10] MEDS: Oseltamivir 75mg cap ORAL SCH ×2 (08:53→18:20)
--- NOTE | 2017-11-10 09:44 | General Progress Note ---
Assessment/Plan Problem List: (1) Fatty liver ICD Codes: K76.0 - Fatty (change of) liver, not elsewhere classified SNOMED: 166635689 (2) Hepatomegaly ICD Codes: R16.0 - Hepatomegaly, not elsewhere classified SNOMED: 53678273 (3) Elevated liver function tests ICD Codes: R79.89 - Other specified abnormal findings of blood chemistry SNOMED: 153964965, 577007511 (4) History of Crohn's disease ICD Codes: Z87.19 - Personal history of other diseases of the digestive system SNOMED: 071021761896963 Assessment/Plan dc 6 MP for now fu abd us hepatitis panel fu labs in am patient to [facility] for his CD Subjective ROS Limited/Unobtainable: Yes Allergies: Coded Allergies: No Known Allergies (Unverified , 11/04/17) Subjective c/o severe headache Objective Last 24 Hour Vital Signs Date Time Temp Pulse Resp B/P (MAP) Pulse Ox O2 Delivery O2 Flow Rate FiO2 11/10/17 08:00 98.2 100 19 109/76 98 11/10/17 00:00 101.3 124 18 130/84 96 11/09/17 20:00 101.7 120 18 112/68 96 11/09/17 16:00 100.7 110 18 120/82 96 11/09/17 12:00 98.9 110 20 108/71 100 Intake and Output 11/09/17 11/10/17 19:00 07:00 Intake Total 650 ml 800 ml Balance 650 ml 800 ml Intake Oral 650 ml 800 ml # Voids 4 3 Laboratory Tests 11/09/17 16:30: Urine Opiates Screen Negative, Urine Barbiturates Screen Negative, Phencyclidine (PCP) Screen Negative, Urine Amphetamines Screen Negative, Urine Benzodiazepines Screen Negative, Urine Cocaine Screen Negative, Urine Marijuana (THC) Screen Negative 11/10/17 04:00: TB Test (T-Spot) [Pending], TB Test Nil Control (T-Spot) [Pending], TB Test Panel A (T-Spot) [Pending], TB Test Panel B (T-Spot) [Pending], TB Test Positive Control (T-Spot) [Pending] 11/10/17 05:35: Prothrombin Time 10.7, Prothromb Time International Ratio 1.0, Activated Partial Thromboplast Time 31, C-Reactive Protein, Quantitative 5.1H Height (Feet): 5 Height (Inches): 4.00 Weight (Pounds): 130 General Appearance: alert EENT: normal ENT inspection Neck: supple Cardiovascular: normal rate Respiratory/Chest: lungs clear Abdomen: normal bowel sounds, non tender, soft Extremities: non-tender SHASTA MOCK Nov 10, 2017 09:43
[2017-11-10] MEDS: Doxycycline Hyclate 100 MG in NS 110 ML IV SCH ×2 (10:33→21:30)
[2017-11-10 12:00] VITALS: BP 97/65
--- NOTE | 2017-11-10 12:02 | Infectious Diseases Prog Note ---
Assessment/Plan Assessment/Plan A) 1) fevers, cough, headache, elevated LDH and lft's, sig hepatomegaly, mild splenomegaly, ? viral, ? bacterial, ? fungal, ? other 2) Crohn's dx with immunosuppression tx 3) [place] - doubt meningitis 4) allergies - negative, sh-negative, fh-nc, mar noted, notes and records noted 5) d/w RN and patient at length P) 1) tamiflu - day # 5/5, doxycycline, azithromycin, discontinue rocephin with negative blood cultures and echo without vegetations mentioned 2) f/u on serology, check us, check labs 3) continue per primary and consultants 4) orders noted and entered 5) GI evaluation noted 6) stool studies ordered Subjective Constitutional: Reports: fever HEENT: Denies: congestion Respiratory: Denies: shortness of breath Cardiovascular: Denies: chest pain Gastrointestinal/Abdominal: Denies: nausea, vomiting, diarrhea Genitourinary: Denies: dysuria, hematuria Neurologic: Reports: headache - better today Psychiatric: Denies: depression Skin: Denies: rash Hematologic: Denies: bleeding Musculoskeletal: Denies: pain Allergies: Coded Allergies: No Known Allergies (Unverified , 11/04/17) Objective Vital Signs Last 24 Hour Vital Signs Date Time Temp Pulse Resp B/P (MAP) Pulse Ox O2 Delivery O2 Flow Rate FiO2 11/10/17 08:00 98.2 100 19 109/76 98 11/10/17 00:00 101.3 124 18 130/84 96 11/09/17 20:00 101.7 120 18 112/68 96 11/09/17 16:00 100.7 110 18 120/82 96 11/09/17 12:00 98.9 110 20 108/71 100 Height (Feet): 5 Height (Inches): 4.00 Weight (Pounds): 130 General Appearance: no acute distress HEENT: normocephalic, atraumatic, anicteric, mucous membranes moist Respiratory/Chest: lungs clear, normal breath sounds, no respiratory distress, no accessory muscle use Cardiovascular: normal rate, regular rhythm, no gallop/murmur, no JVD Abdomen: normal bowel sounds, soft, non tender, no organomegaly, non distended Genitourinary: other - no anders Extremities: no cyanosis Skin: no rash 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, alert, oriented x 3, responsive Lymphatic: no neck adenopathy Musculoskeletal: no effusion Objective chest x-ray - negative CT scan - hepatomegaly and splenomegaly noted, no abscess, no sig adenopathy us abdomen pending echo - no vegetations mentioned Microbiology Date/Time Source Procedure Growth Status 11/08/17 11:30 Blood Blood Culture - Preliminary NO GROWTH AFTER 24 HOURS Resulted 11/06/17 13:40 Nasal Nares Influenza Types A,B Antigen (CHRISTIAN) - Final Complete 11/04/17 19:35 Urine,Clean Catch Urine Culture - Final Mixed Gram Positive Organism Complete Microbiology Date/Time Source Procedure Growth Status 11/08/17 11:30 Blood Blood Culture - Preliminary NO GROWTH AFTER 24 HOURS Resulted 11/08/17 11:15 Blood Blood Culture - Preliminary NO GROWTH AFTER 24 HOURS Resulted Labs Test 11/08/17 06:15 11/08/17 11:30 11/08/17 18:15 11/09/17 07:44 White Blood Count 7.0 K/UL (4.8-10.8) 6.9 K/UL (4.8-10.8) Red Blood Count 4.21 M/UL (4.70-6.10) 4.47 M/UL (4.70-6.10) Hemoglobin 13.2 G/DL (14.2-18.0) 13.8 G/DL (14.2-18.0) Hematocrit 37.8 % (42.0-52.0) 40.0 % (42.0-52.0) Mean Corpuscular Volume 90 FL (80-99) 89 FL (80-99) Mean Corpuscular Hemoglobin 31.4 PG (27.0-31.0) 30.9 PG (27.0-31.0) Mean Corpuscular Hemoglobin Concent 35.0 G/DL (32.0-36.0) 34.6 G/DL (32.0-36.0) Red Cell Distribution Width 12.1 % (11.6-14.8) 12.2 % (11.6-14.8) Platelet Count 263 K/UL (150-450) 284 K/UL (150-450) Mean Platelet Volume 4.7 FL (6.5-10.1) 5.2 FL (6.5-10.1) Neutrophils (%) (Auto) 38.3 % (45.0-75.0) 36.8 % (45.0-75.0) Lymphocytes (%) (Auto) 41.6 % (20.0-45.0) 51.7 % (20.0-45.0) Monocytes (%) (Auto) 17.3 % (1.0-10.0) 8.9 % (1.0-10.0) Eosinophils (%) (Auto) 2.2 % (0.0-3.0) 2.3 % (0.0-3.0) Basophils (%) (Auto) 0.7 % (0.0-2.0) 0.4 % (0.0-2.0) Erythrocyte Sedimentation Rate 27 MM/HR (0-15) Sodium Level 133 MMOL/L (136-145) 137 MMOL/L (136-145) Potassium Level 3.7 MMOL/L (3.5-5.1) 3.9 MMOL/L (3.5-5.1) Chloride Level 100 MMOL/L (98-107) 102 MMOL/L (98-107) Carbon Dioxide Level 25 MMOL/L (21-32) 28 MMOL/L (21-32) Anion Gap 8 mmol/L (5-15) 7 mmol/L (5-15) Blood Urea Nitrogen 7 mg/dL (7-18) 8 mg/dL (7-18) Creatinine 0.8 MG/DL (0.55-1.30) 0.9 MG/DL (0.55-1.30) Estimat Glomerular Filtration Rate > 60 mL/min (>60) > 60 mL/min (>60) Glucose Level 112 MG/DL (74-106) 106 MG/DL (74-106) Calcium Level 8.2 MG/DL (8.5-10.1) 8.6 MG/DL (8.5-10.1) Total Bilirubin 0.4 MG/DL (0.2-1.0) 0.5 MG/DL (0.2-1.0) Aspartate Amino Transf (AST/SGOT) 144 U/L (15-37) 113 U/L (15-37) Alanine Aminotransferase (ALT/SGPT) 286 U/L (12-78) 263 U/L (12-78) Alkaline Phosphatase 159 U/L (46-116) 156 U/L (46-116) Lactate Dehydrogenase 516 U/L (81-234) Total Protein 6.9 G/DL (6.4-8.2) 7.3 G/DL (6.4-8.2) Albumin 2.9 G/DL (3.4-5.0) 3.0 G/DL (3.4-5.0) Globulin 4.0 g/dL Albumin/Globulin Ratio 0.7 (1.0-2.7) Rapid Plasma Reagin Non reactive (Non Reactive) HIV (1&2) Antibody Rapid Negative (NEGATIVE) Direct Bilirubin 0.1 MG/DL (0.0-0.3) Test 11/09/17 16:30 11/10/17 04:00 11/10/17 05:35 11/10/17 07:30 Urine Opiates Screen Negative (NEGATIVE) Urine Barbiturates Screen Negative (NEGATIVE) Phencyclidine (PCP) Screen Negative (NEGATIVE) Urine Amphetamines Screen Negative (NEGATIVE) Urine Benzodiazepines Screen Negative (NEGATIVE) Urine Cocaine Screen Negative (NEGATIVE) Urine Marijuana (THC) Screen Negative (NEGATIVE) Prothrombin Time 10.7 SEC (9.30-11.50) Prothromb Time International Ratio 1.0 (0.9-1.1) Activated Partial Thromboplast Time 31 SEC (23-33) C-Reactive Protein, Quantitative 5.1 mg/dL (0.00-0.90) Laboratory Tests Test 11/09/17 16:30 11/10/17 04:00 11/10/17 05:35 11/10/17 07:30 Urine Opiates Screen Negative (NEGATIVE) Urine Barbiturates Screen Negative (NEGATIVE) Phencyclidine (PCP) Screen Negative (NEGATIVE) Urine Amphetamines Screen Negative (NEGATIVE) Urine Benzodiazepines Screen Negative (NEGATIVE) Urine Cocaine Screen Negative (NEGATIVE) Urine Marijuana (THC) Screen Negative (NEGATIVE) TB Test (T-Spot) Pending TB Test Nil Control (T-Spot) Pending TB Test Panel A (T-Spot) Pending TB Test Panel B (T-Spot) Pending TB Test Positive Control (T-Spot) Pending Prothrombin Time 10.7 SEC (9.30-11.50) Prothromb Time International Ratio 1.0 (0.9-1.1) Activated Partial Thromboplast Time 31 SEC (23-33) C-Reactive Protein, Quantitative 5.1 mg/dL (0.00-0.90) H Alpha Fetoprotein Pending Current Medications Medications (Trade) Dose Ordered Sig/Mark Route PRN Reason Start Time Stop Time Status Last Admin Dose Admin Acetaminophen (Tylenol) 500 mg Q6H PRN ORAL Headache/Temp > 101 11/06/17 18:00 12/06/17 17:59 11/07/17 16:43 Acetaminophen/ Butalbital/ Caffeine (Fioricet) 1 tab Q6H PRN ORAL HEADACHE 11/10/17 08:30 12/10/17 08:29 11/10/17 08:53 Azithromycin 500 mg/Dextrose 275 ml @ 275 mls/hr Q24HRS IV 11/08/17 13:00 11/14/17 13:59 11/09/17 13:39 Ceftriaxone Sodium 1 gm/ Sodium Chloride 55 ml @ 110 mls/hr DAILY IVPB 11/08/17 10:45 11/15/17 10:44 11/10/17 08:51 Cetylpyridinium Chloride (Cepacol) 1 lozg Q2H PRN KORIN sore throat 11/08/17 17:00 12/08/17 16:59 Diphenhydramine HCl (Benadryl) 25 mg Q6H PRN IVP Itching 11/06/17 17:00 12/06/17 16:59 Doxycycline Hyclate 100 mg/ Sodium Chloride 110 ml @ 110 mls/hr BID@1000,2200 IV 11/08/17 12:00 11/15/17 11:59 11/10/17 10:33 Fexofenadine HCl (Sima) 60 mg TWICE A DAY ORAL 11/10/17 09:00 12/10/17 08:59 11/10/17 08:52 Finasteride (Proscar) 2.5 mg QHS ORAL 11/07/17 21:00 12/07/17 20:59 11/09/17 20:04 Guaifenesin/ Dextromethorphan (Robitussin DM) 10 ml Q4H PRN ORAL For Cough 11/08/17 17:00 12/08/17 16:59 Hydromorphone HCl (Dilaudid) 0.5 mg Q4H PRN IVP Unrelieved Iiy-xa-Fcrlig Pain 11/06/17 17:15 11/13/17 17:14 11/10/17 03:28 Ketorolac Tromethamine (Toradol 30mg) 30 mg Q6HR IV 11/06/17 17:30 11/11/17 17:29 11/10/17 06:10 Ondansetron HCl (Zofran) 4 mg Q6H PRN IVP Nausea & Vomiting 11/04/17 23:30 12/04/17 23:29 Oseltamivir Phosphate (Tamiflu) 75 mg TWICE A DAY ORAL 11/06/17 18:00 11/11/17 17:59 11/10/17 08:53 Prochlorperazine (Compazine) 10 mg Q6H PRN IVP Nausea & Vomiting 11/07/17 10:15 12/07/17 10:14 Pseudoephedrine HCl (Sudafed) 30 mg Q6H PRN ORAL sinus pain, congestion 11/09/17 10:30 12/09/17 10:29 Sodium Chloride 1,000 ml @ 100 mls/hr Q10H IV 11/07/17 10:00 12/07/17 09:59 11/10/17 08:51 Zolpidem Tartrate (Ambien) 5 mg HSPRN PRN ORAL Insomnia 11/06/17 17:00 11/13/17 16:59 ANABELA MICHAEL Nov 10, 2017 12:02
[2017-11-10] MEDS: Azithromycin 500 MG in D5W 275 ML IV SCH (12:17)
[2017-11-10 16:00] VITALS: BP 126/76
[2017-11-10 18:00] VITALS: BP 126/76
[2017-11-10 20:25] VITALS: BP 105/73
--- NOTE | 2017-11-10 21:39 | General Progress Note ---
Assessment/Plan Problem List: (1) SIRS (systemic inflammatory response syndrome) ICD Codes: R65.10 - Systemic inflammatory response syndrome (SIRS) of non- infectious origin without acute organ dysfunction SNOMED: 078162651 (2) Febrile illness, acute ICD Codes: R50.9 - Fever, unspecified SNOMED: 002262488 (3) Transaminitis ICD Codes: R74.0 - Nonspecific elevation of levels of transaminase and lactic acid dehydrogenase [LDH] SNOMED: 242240211, 683267181 (4) Elevated liver function tests ICD Codes: R79.89 - Other specified abnormal findings of blood chemistry SNOMED: 153248831, 382315873 (5) Dehydration ICD Codes: E86.0 - Dehydration SNOMED: 92574706 (6) Hyponatremia ICD Codes: E87.1 - Hypo-osmolality and hyponatremia SNOMED: 73493104 (7) History of Crohn's disease ICD Codes: Z87.19 - Personal history of other diseases of the digestive system SNOMED: 611406280701396 (8) Hepatomegaly ICD Codes: R16.0 - Hepatomegaly, not elsewhere classified SNOMED: 33877680 Status: stable Assessment/Plan Unclear etiology. Possibly viral illness. Given elevated LFTs, consider EBV as an etiology ID consulted, appreciate rec's Cont tamiflu (11/06-) x 5days. Influenza rapid test neg but maybe false positive. No PCR test available at [facility] [place] F/u repeat blood cultures form 11/08/17 D/c ceftriaxone per ID (stopped 11/10/17) Cont azithro and doxy per ID F/u blood cultures from admission--ngtd F/u EBV, monospot, CMV HIV neg, hepatitis panel neg CT head, c/a/p reviewed and showed no source of infection; showed hepatomegaly GI consulted Hold 6-mercaptopurine per IG F/u ECHO F/u U/S abx Trend LFTs mIVFs Tylenol + trial of Ketorlac (risks discussed and pt wishes to try it) Fioricet PRN headache Consider LP if fevers persist Pain control, bowel regimen Supportive care DVT ppx: early ambulation. pt refusing hsq FULL CODE D/w pt, mother, ID, RN extensively regarding plan of care and dispo Subjective Date patient seen: Nov 10, 2017 Time patient seen: 11:00 ROS Limited/Unobtainable: No Constitutional: Reports: malaise, weakness HEENT: Reports: throat pain Respiratory: Reports: cough, shortness of breath Gastrointestinal/Abdominal: Reports: no symptoms Genitourinary: Reports: no symptoms Neurologic/Psychiatric: Reports: headache Endocrine: Reports: no symptoms Hematologic/Lymphatic: Reports: no symptoms Allergies: Coded Allergies: No Known Allergies (Unverified , 11/04/17) Subjective No acute o/n events Fever to 101 o/n C/o severe headache this AM, now improved s/p Fioricet Pt states Toradol helps with fevers and pain. Feels fevers less frequent and less severe. Cough improved. Objective Last 24 Hour Vital Signs Date Time Temp Pulse Resp B/P (MAP) Pulse Ox O2 Delivery O2 Flow Rate FiO2 11/10/17 20:25 100.7 109 17 105/73 91 11/10/17 18:00 99.5 100 19 126/76 98 11/10/17 16:05 99.5 11/10/17 16:00 101.7 98 19 126/76 98 11/10/17 12:00 98.8 100 19 97/65 98 11/10/17 08:00 98.2 100 19 109/76 98 11/10/17 00:00 101.3 124 18 130/84 96 Intake and Output 11/09/17 11/10/17 19:00 07:00 Intake Total 650 ml 800 ml Balance 650 ml 800 ml Intake Oral 650 ml 800 ml # Voids 4 3 Laboratory Tests 11/10/17 04:00: TB Test (T-Spot) [Pending], TB Test Nil Control (T-Spot) [Pending], TB Test Panel A (T-Spot) [Pending], TB Test Panel B (T-Spot) [Pending], TB Test Positive Control (T-Spot) [Pending] 11/10/17 05:35: Prothrombin Time 10.7, Prothromb Time International Ratio 1.0, Activated Partial Thromboplast Time 31, C-Reactive Protein, Quantitative 5.1H 11/10/17 07:30: Alpha Fetoprotein [Pending] Height (Feet): 5 Height (Inches): 4.00 Weight (Pounds): 130 Objective General: alert, cooperative, no distress, appears stated age Head: normocephalic, without obvious abnormality, atraumatic Eyes: conjunctivae/corneas clear. PERRL, EOM's intact Throat: lips, mucosa, and tongue normal. MMM Neck: supple, symmetrical, trachea midline, and no JVD Lungs: clear to auscultation bilaterally Heart: regular rate and rhythm, S1, S2 normal, no murmur, click, rub or gallop Abdomen: soft, non-tender, non-distended, bowel sounds normal Extremities: extremities normal, atraumatic, no cyanosis or edema Pulses: 2+ and symmetric Skin: skin color, texture, turgor normal; no rashes or lesions Neurologic: grossly normal, no focal deficits Salina Driver M.D. Nov 10, 2017 21:39
[2017-11-11 04:00] VITALS: BP 102/69
[2017-11-11] MEDS: NS w/KCl 20mEq 1,000 ML IV SCH ×2 (04:00→14:00)
[2017-11-11] MEDS: Ketorolac 30mg Inj IV SCH (05:41)
[2017-11-11 08:00] VITALS: BP 110/64
--- NOTE | 2017-11-11 08:25 | General Progress Note ---
Assessment/Plan Problem List: (1) Fatty liver ICD Codes: K76.0 - Fatty (change of) liver, not elsewhere classified SNOMED: 155127385 (2) Hepatomegaly ICD Codes: R16.0 - Hepatomegaly, not elsewhere classified SNOMED: 35194123 (3) Elevated liver function tests ICD Codes: R79.89 - Other specified abnormal findings of blood chemistry SNOMED: 307015942, 472225197 (4) History of Crohn's disease ICD Codes: Z87.19 - Personal history of other diseases of the digestive system SNOMED: 228777405595620 Assessment/Plan dc 6 MP for now fu abd us hepatitis panel fu labs in am patient to fu [facility] for his CD Subjective ROS Limited/Unobtainable: Yes Allergies: Coded Allergies: No Known Allergies (Unverified , 11/04/17) Subjective headache is better no abd pain refused lab but now agreed Objective Last 24 Hour Vital Signs Date Time Temp Pulse Resp B/P (MAP) Pulse Ox O2 Delivery O2 Flow Rate FiO2 11/11/17 05:00 101.3 11/11/17 04:00 99.3 97 19 102/69 98 11/10/17 20:25 100.7 109 17 105/73 91 11/10/17 18:00 99.5 100 19 126/76 98 11/10/17 16:05 99.5 11/10/17 16:00 101.7 98 19 126/76 98 11/10/17 12:00 98.8 100 19 97/65 98 Intake and Output 11/10/17 11/11/17 19:00 07:00 Intake Total 1565 ml 360 ml Balance 1565 ml 360 ml Intake Oral 480 ml 360 ml IV Total 1085 ml # Voids 2 2 Laboratory Tests 11/11/17 04:00: TB Test (T-Spot) [Pending], TB Test Nil Control (T-Spot) [Pending], TB Test Panel A (T-Spot) [Pending], TB Test Panel B (T-Spot) [Pending], TB Test Positive Control (T-Spot) [Pending] Height (Feet): 5 Height (Inches): 4.00 Weight (Pounds): 130 General Appearance: alert EENT: normal ENT inspection Neck: supple Cardiovascular: normal rate Respiratory/Chest: lungs clear Abdomen: normal bowel sounds, non tender, soft Extremities: non-tender SHASTA MOCK Nov 11, 2017 08:25
[2017-11-11 08:51] LABS: EOSINOPHILS % (AUTO) 2.3 % (0.0-3.0); HEMATOCRIT 39.2 % (42.0-52.0); HEMOGLOBIN 13.5 G/DL (14.2-18.0); LYMPHOCYTES % (AUTO) 52.7 % (20.0-45.0); MEAN CORPUSCULAR VOLUME 88 FL (80-99); NEUTROPHILS % (AUTO) 31.1 % (45.0-75.0); PLATELET COUNT 272 K/UL (150-450); RED BLOOD COUNT 4.46 M/UL (4.70-6.10); WHITE BLOOD COUNT 7.3 K/UL (4.8-10.8)
[2017-11-11 09:29] LABS: ALANINE AMINOTRANSFERASE 187 U/L (12-78); ALBUMIN 2.7 G/DL (3.4-5.0); ALBUMIN/GLOBULIN RATIO 0.6 (1.0-2.7); ALKALINE PHOSPHATASE 126 U/L (46-116); ANION GAP 5 mmol/L (5-15); ASPARTATE AMINO TRANSFERASE 92 U/L (15-37); BILIRUBIN,TOTAL 0.4 MG/DL (0.2-1.0); BLOOD UREA NITROGEN 6 mg/dL (7-18); CALCIUM 8.6 MG/DL (8.5-10.1); CARBON DIOXIDE 24 MMOL/L (21-32); CHLORIDE 103 MMOL/L (98-107); CREATININE 0.8 MG/DL (0.55-1.30); POTASSIUM 4.3 MMOL/L (3.5-5.1); SODIUM 132 MMOL/L (136-145)
[2017-11-11] MEDS: Doxycycline Hyclate 100 MG in NS 110 ML IV SCH ×2 (10:30→22:31)
[2017-11-11] MEDS: Oseltamivir 75mg cap ORAL SCH (10:30)
[2017-11-11 12:00] VITALS: BP 105/60
--- NOTE | 2017-11-11 13:29 | General Progress Note ---
Assessment/Plan Problem List: (1) SIRS (systemic inflammatory response syndrome) ICD Codes: R65.10 - Systemic inflammatory response syndrome (SIRS) of non- infectious origin without acute organ dysfunction SNOMED: 408792876 (2) Febrile illness, acute ICD Codes: R50.9 - Fever, unspecified SNOMED: 988480361 (3) Transaminitis ICD Codes: R74.0 - Nonspecific elevation of levels of transaminase and lactic acid dehydrogenase [LDH] SNOMED: 351985644, 577994829 (4) Elevated liver function tests ICD Codes: R79.89 - Other specified abnormal findings of blood chemistry SNOMED: 352760158, 574308063 (5) Dehydration ICD Codes: E86.0 - Dehydration SNOMED: 92656620 (6) Hyponatremia ICD Codes: E87.1 - Hypo-osmolality and hyponatremia SNOMED: 15386852 (7) History of Crohn's disease ICD Codes: Z87.19 - Personal history of other diseases of the digestive system SNOMED: 324415728305408 (8) Hepatomegaly ICD Codes: R16.0 - Hepatomegaly, not elsewhere classified SNOMED: 88293790 Status: stable Assessment/Plan Unclear etiology. Possibly viral illness. Given elevated LFTs, consider EBV as an etiology ID consulted, appreciate rec's Cont tamiflu (11/06-) x 5days. Influenza rapid test neg but maybe false positive. No PCR test available at [facility] [place] F/u repeat blood cultures fr 11/08/17--ngtd D/c ceftriaxone per ID (stopped 11/10/17) Cont azithro and doxy per ID F/u blood cultures from admission--ngtd F/u EBV, monospot, CMV HIV neg, hepatitis panel neg CT head, c/a/p reviewed and showed no source of infection; showed hepatomegaly GI consulted Hold 6-mercaptopurine per GI F/u ECHO--EF 55-60% F/u U/S abx Trend LFTs mIVFs Tylenol + trial of Ketorlac (risks discussed and pt wishes to try it) Fioricet PRN headache Consider LP if fevers persist Pain control, bowel regimen Supportive care DVT ppx: early ambulation. pt refusing hsq FULL CODE D/w pt, mother, ID, RN extensively regarding plan of care and dispo Subjective Date patient seen: Nov 11, 2017 Time patient seen: 09:00 ROS Limited/Unobtainable: No Constitutional: Reports: fever, malaise, weakness HEENT: Reports: throat pain Cardiovascular: Reports: no symptoms Respiratory: Reports: cough, shortness of breath Gastrointestinal/Abdominal: Reports: no symptoms Genitourinary: Reports: no symptoms Neurologic/Psychiatric: Reports: no symptoms Endocrine: Reports: no symptoms Hematologic/Lymphatic: Reports: no symptoms Allergies: Coded Allergies: No Known Allergies (Unverified , 11/04/17) Subjective No acute o/n events Fever to 101 this AM LFTs downtrending Headache improved w/ Fioricet Pt states Toradol helps with fevers and pain. Feels fevers less frequent and less severe. Cough improved. Objective Last 24 Hour Vital Signs Date Time Temp Pulse Resp B/P (MAP) Pulse Ox O2 Delivery O2 Flow Rate FiO2 11/11/17 05:00 101.3 11/11/17 04:00 99.3 97 19 102/69 98 11/10/17 20:25 100.7 109 17 105/73 91 11/10/17 18:00 99.5 100 19 126/76 98 11/10/17 16:05 99.5 11/10/17 16:00 101.7 98 19 126/76 98 Intake and Output 11/10/17 11/11/17 19:00 07:00 Intake Total 1565 ml 360 ml Balance 1565 ml 360 ml Intake Oral 480 ml 360 ml IV Total 1085 ml # Voids 2 2 Laboratory Tests 11/11/17 08:30: White Blood Count 7.3, Red Blood Count 4.46L, Hemoglobin 13.5L, Hematocrit 39.2L , Mean Corpuscular Volume 88, Mean Corpuscular Hemoglobin 30.2, Mean Corpuscular Hemoglobin Concent 34.3, Red Cell Distribution Width 12.0, Platelet Count 272, Mean Platelet Volume 5.7L, Neutrophils (%) (Auto) 31.1L, Lymphocytes (%) (Auto) 52.7H, Monocytes (%) (Auto) 13.0H, Eosinophils (%) (Auto) 2.3, Basophils (%) (Auto) 1.0, Sodium Level 132L, Potassium Level 4.3, Chloride Level 103, Carbon Dioxide Level 24, Anion Gap 5, Blood Urea Nitrogen 6L, Creatinine 0.8, Estimat Glomerular Filtration Rate > 60, Glucose Level 99, Calcium Level 8.6, Magnesium Level 2.1, Total Bilirubin 0.4, Aspartate Amino Transf (AST/SGOT) 92H, Alanine Aminotransferase (ALT/SGPT) 187H, Alkaline Phosphatase 126H, Total Protein 7.2, Albumin 2.7L, Globulin 4.5, Albumin/ Globulin Ratio 0.6L, TB Test (T-Spot) [Pending], TB Test Nil Control (T-Spot) [ Pending], TB Test Panel A (T-Spot) [Pending], TB Test Panel B (T-Spot) [Pending] , TB Test Positive Control (T-Spot) [Pending] Height (Feet): 5 Height (Inches): 4.00 Weight (Pounds): 130 Objective General: alert, cooperative, no distress, appears stated age Head: normocephalic, without obvious abnormality, atraumatic Eyes: conjunctivae/corneas clear. PERRL, EOM's intact Throat: lips, mucosa, and tongue normal. MMM Neck: supple, symmetrical, trachea midline, and no JVD Lungs: clear to auscultation bilaterally Heart: regular rate and rhythm, S1, S2 normal, no murmur, click, rub or gallop Abdomen: soft, non-tender, non-distended, bowel sounds normal Extremities: extremities normal, atraumatic, no cyanosis or edema Pulses: 2+ and symmetric Skin: skin color, texture, turgor normal; no rashes or lesions Neurologic: grossly normal, no focal deficits Salina Driver M.D. Nov 11, 2017 13:29
--- NOTE | 2017-11-11 14:01 | Infectious Diseases Prog Note ---
Assessment/Plan Assessment/Plan A) 1) fevers, cough, headache better, elevated LDH, LFT's hepatomegaly/ splenomegaly, ? viral, ? bacterial, ? fungal, ? other 2) Crohn's dx with immunosuppression tx 3) [place] - doubt meningitis 4) allergies - negative, sh-negative, fh-nc, mar noted, notes and records noted 5) d/w RN and patient at length P) 1) doxycycline, azithromycin - day # 4 of both abx 2) f/u on serology, check us, check labs 3) continue per primary and consultants 4) orders noted and entered 5) GI evaluation noted 6) stool studies ordered 7) d/w Dr. Durham Subjective Constitutional: Reports: fever HEENT: Denies: congestion Respiratory: Denies: shortness of breath Cardiovascular: Denies: chest pain Gastrointestinal/Abdominal: Reports: diarrhea, Denies: nausea, vomiting Genitourinary: Denies: dysuria, hematuria, frequency Neurologic: Reports: headache - better Psychiatric: Denies: depression Skin: Denies: rash Hematologic: Denies: bleeding Musculoskeletal: Denies: pain Allergies: Coded Allergies: No Known Allergies (Unverified , 11/04/17) Objective Vital Signs Last 24 Hour Vital Signs Date Time Temp Pulse Resp B/P (MAP) Pulse Ox O2 Delivery O2 Flow Rate FiO2 11/11/17 05:00 101.3 11/11/17 04:00 99.3 97 19 102/69 98 11/10/17 20:25 100.7 109 17 105/73 91 11/10/17 18:00 99.5 100 19 126/76 98 11/10/17 16:05 99.5 11/10/17 16:00 101.7 98 19 126/76 98 Height (Feet): 5 Height (Inches): 4.00 Weight (Pounds): 130 General Appearance: no acute distress HEENT: normocephalic, atraumatic, anicteric, mucous membranes moist, EOMI, pharynx normal, supple, no JVD Respiratory/Chest: lungs clear, normal breath sounds, no respiratory distress, no accessory muscle use Cardiovascular: normal rate, regular rhythm, no gallop/murmur, no JVD Abdomen: normal bowel sounds, soft, non tender, no organomegaly, non distended Genitourinary: other - no anders, no cva pain Extremities: no cyanosis Skin: no rash Neurologic/Psychiatric: fee clerk II-XII grossly normal, alert, oriented x 3, responsive Lymphatic: no neck adenopathy Musculoskeletal: normal muscle bulk Objective chest x-ray - negative CT scan - hepatomegaly and splenomegaly noted, no abscess, no sig adenopathy us abdomen pending echo - no vegetations mentioned Microbiology Date/Time Source Procedure Growth Status 11/08/17 11:30 Blood Blood Culture - Preliminary NO GROWTH AFTER 48 HOURS Resulted 11/06/17 13:40 Nasal Nares Influenza Types A,B Antigen (CHRISTIAN) - Final Complete 11/04/17 19:35 Urine,Clean Catch Urine Culture - Final Mixed Gram Positive Organism Complete Laboratory Tests Test 11/11/17 08:30 White Blood Count 7.3 K/UL (4.8-10.8) Red Blood Count 4.46 M/UL (4.70-6.10) L Hemoglobin 13.5 G/DL (14.2-18.0) L Hematocrit 39.2 % (42.0-52.0) L Mean Corpuscular Volume 88 FL (80-99) Mean Corpuscular Hemoglobin 30.2 PG (27.0-31.0) Mean Corpuscular Hemoglobin Concent 34.3 G/DL (32.0-36.0) Red Cell Distribution Width 12.0 % (11.6-14.8) Platelet Count 272 K/UL (150-450) Mean Platelet Volume 5.7 FL (6.5-10.1) L Neutrophils (%) (Auto) 31.1 % (45.0-75.0) L Lymphocytes (%) (Auto) 52.7 % (20.0-45.0) H Monocytes (%) (Auto) 13.0 % (1.0-10.0) H Eosinophils (%) (Auto) 2.3 % (0.0-3.0) Basophils (%) (Auto) 1.0 % (0.0-2.0) Sodium Level 132 MMOL/L (136-145) L Potassium Level 4.3 MMOL/L (3.5-5.1) Chloride Level 103 MMOL/L (98-107) Carbon Dioxide Level 24 MMOL/L (21-32) Anion Gap 5 mmol/L (5-15) Blood Urea Nitrogen 6 mg/dL (7-18) L Creatinine 0.8 MG/DL (0.55-1.30) Estimat Glomerular Filtration Rate > 60 mL/min (>60) Glucose Level 99 MG/DL (74-106) Calcium Level 8.6 MG/DL (8.5-10.1) Magnesium Level 2.1 MG/DL (1.8-2.4) Total Bilirubin 0.4 MG/DL (0.2-1.0) Aspartate Amino Transf (AST/SGOT) 92 U/L (15-37) H Alanine Aminotransferase (ALT/SGPT) 187 U/L (12-78) H Alkaline Phosphatase 126 U/L (46-116) H Total Protein 7.2 G/DL (6.4-8.2) Albumin 2.7 G/DL (3.4-5.0) L Globulin 4.5 g/dL Albumin/Globulin Ratio 0.6 (1.0-2.7) L TB Test (T-Spot) Pending TB Test Nil Control (T-Spot) Pending TB Test Panel A (T-Spot) Pending TB Test Panel B (T-Spot) Pending TB Test Positive Control (T-Spot) Pending Current Medications Medications (Trade) Dose Ordered Sig/Mark Route PRN Reason Start Time Stop Time Status Last Admin Dose Admin Acetaminophen (Tylenol) 500 mg Q6H PRN ORAL Headache/Temp > 101 11/06/17 18:00 12/06/17 17:59 11/07/17 16:43 Acetaminophen/ Butalbital/ Caffeine (Fioricet) 1 tab Q6H PRN ORAL HEADACHE 11/10/17 08:30 12/10/17 08:29 11/11/17 11:19 Azithromycin 500 mg/Dextrose 275 ml @ 275 mls/hr Q24HRS IV 11/08/17 13:00 11/14/17 13:59 11/10/17 12:17 Cetylpyridinium Chloride (Cepacol) 1 lozg Q2H PRN KORIN sore throat 11/08/17 17:00 12/08/17 16:59 Diphenhydramine HCl (Benadryl) 25 mg Q6H PRN IVP Itching 11/06/17 17:00 12/06/17 16:59 Doxycycline Hyclate 100 mg/ Sodium Chloride 110 ml @ 110 mls/hr BID@1000,2200 IV 11/08/17 12:00 11/15/17 11:59 11/11/17 10:30 Fexofenadine HCl (Sima) 60 mg TWICE A DAY ORAL 11/10/17 09:00 12/10/17 08:59 11/11/17 10:30 Finasteride (Proscar) 2.5 mg QHS ORAL 11/07/17 21:00 12/07/17 20:59 11/10/17 21:30 Guaifenesin/ Dextromethorphan (Robitussin DM) 10 ml Q4H PRN ORAL For Cough 11/08/17 17:00 12/08/17 16:59 Hydromorphone HCl (Dilaudid) 0.5 mg Q4H PRN IVP Unrelieved Ifh-ml-Rahcrv Pain 11/06/17 17:15 11/13/17 17:14 11/10/17 03:28 Ketorolac Tromethamine (Toradol 30mg) 30 mg Q6H PRN IV pain (4-6) /fever 11/11/17 12:00 11/16/17 11:59 Ondansetron HCl (Zofran) 4 mg Q6H PRN IVP Nausea & Vomiting 11/04/17 23:30 12/04/17 23:29 Oseltamivir Phosphate (Tamiflu) 75 mg TWICE A DAY ORAL 11/06/17 18:00 11/11/17 17:59 11/11/17 10:30 Prochlorperazine (Compazine) 10 mg Q6H PRN IVP Nausea & Vomiting 11/07/17 10:15 12/07/17 10:14 Pseudoephedrine HCl (Sudafed) 30 mg Q6H PRN ORAL sinus pain, congestion 11/09/17 10:30 12/09/17 10:29 Sodium Chloride 1,000 ml @ 100 mls/hr Q10H IV 11/07/17 10:00 12/07/17 09:59 11/10/17 18:17 Zolpidem Tartrate (Ambien) 5 mg HSPRN PRN ORAL Insomnia 11/06/17 17:00 11/13/17 16:59 ANABELA MICHAEL Nov 11, 2017 14:00
[2017-11-11] MEDS: Ketorolac 30mg Inj IV PRN (17:30)
[2017-11-11] MEDS: Azithromycin 500 MG in D5W 275 ML IV SCH (17:39)
[2017-11-11 18:23] VITALS: BP 114/70
[2017-11-11 20:00] VITALS: BP 102/67
[2017-11-12] VITALS: BP 107/74
[2017-11-12] MEDS: Ketorolac 30mg Inj IV PRN ×4 (00:38→22:01)
[2017-11-12 04:00] VITALS: BP 99/65
[2017-11-12 08:00] VITALS: BP 106/67
--- NOTE | 2017-11-12 10:21 | Diagnostic Imaging Report ---
Indication: Abdominal pain, abnormal liver function tests Technique: Dukes-scale and duplex images of the upper abdomen were obtained Comparison: none Findings: Note that dictation was delayed due to exam not being matched. Gallbladder is unremarkable, without stones, wall thickening, nor pericholecystic fluid. Sonographic Olmstead's sign is negative. Common bile duct measures 2 mm in diameter. No intrahepatic biliary ductal dilatation. Liver demonstrates diffusely increased echogenicity, consistent with diffuse hepatocellular disease, most likely fatty change. Portal vein and hepatic veins are patent. Pancreas is unremarkable. Spleen is unremarkable. Left kidney measures 11 cm in length. Right kidney measures 10.8 cm length. Both kidneys demonstrate normal echogenicity. There is no hydronephrosis. Echogenic focus in the periphery of the right kidney is probably artifactual, as no corresponding abnormality is demonstrated on a subsequent CT scan. Non-aneurysmal abdominal aorta . Impression: Negative for gallstones or dilated ducts Liver demonstrates diffusely increased echogenicity, consistent with diffuse hepatocellular disease, most likely fatty change. Echogenic focus in the periphery the right kidney, probably artifactual as no abnormality seen on subsequent CT Handwritten preliminary report previously provided on the PACS
--- NOTE | 2017-11-12 11:03 | GI Progress Note ---
Assessment/Plan Problems: (1) Elevated liver function tests ICD Codes: R79.89 - Other specified abnormal findings of blood chemistry SNOMED: 298852082, 887682999 (2) Hepatomegaly ICD Codes: R16.0 - Hepatomegaly, not elsewhere classified SNOMED: 37630236 (3) Fatty liver ICD Codes: K76.0 - Fatty (change of) liver, not elsewhere classified SNOMED: 596803398 (4) History of Crohn's disease ICD Codes: Z87.19 - Personal history of other diseases of the digestive system SNOMED: 610687794090221 (5) Transaminitis ICD Codes: R74.0 - Nonspecific elevation of levels of transaminase and lactic acid dehydrogenase [LDH] SNOMED: 050925503, 857284906 Status: stable Status Narrative Discussed with Dr. Babb. Assessment/Plan CT AP reviewed >> - No evidence of malignant neoplasm. No abscess or focus of infection/ inflammation identified. - Hepatomegaly with fatty infiltration. Mild splenomegaly noted. hepatitis panel negative ESR mild elevation, C-reactive protein elevation transaminitis most likely drug-induced hepatomegaly >> infectious vs cholestatic disease vs infiltrative diseases >> fu abdominal U/S regular diet, tolerating dc 6 MP for now fu [facility] fu labs in am patient to [facility] for his CD Subjective Subjective diarrhea Objective Last 24 Hour Vital Signs Date Time Temp Pulse Resp B/P (MAP) Pulse Ox O2 Delivery O2 Flow Rate FiO2 11/12/17 09:31 99.1 11/12/17 08:00 100.7 99 18 106/67 100 11/12/17 04:00 98.7 95 17 99/65 100 11/12/17 00:00 100.9 111 18 107/74 97 11/11/17 20:00 99.9 106 18 102/67 94 11/11/17 18:23 102.7 95 20 114/70 97 11/11/17 12:00 99.0 96 18 105/60 98 Intake and Output 11/11/17 11/12/17 19:00 07:00 Intake Total 700 ml 960 ml Balance 700 ml 960 ml Intake Oral 700 ml 360 ml IV Total 600 ml # Voids 3 2 # Bowel Movements 1 Height (Feet): 5 Height (Inches): 4.00 Weight (Pounds): 130 General Appearance: WD/WN, no apparent distress, alert, thin Cardiovascular: normal rate Respiratory/Chest: normal breath sounds, no respiratory distress Abdominal Exam: normal bowel sounds, non tender, soft Extremities: normal range of motion, non-tender Gracia Mendenhall N.P. Nov 12, 2017 11:03
[2017-11-12 12:00] VITALS: BP 114/77
--- NOTE | 2017-11-12 12:40 | Infectious Diseases Prog Note ---
Assessment/Plan Assessment/Plan A) 1) fevers, cough, headache better, elevated LDH, LFT's hepatomegaly/ splenomegaly, ? viral, ? bacterial, ? fungal, ? cmv infection - cmv qualitative pcr + - fevers persist despite abx 2) Crohn's dx with immunosuppression tx 3) [place] - doubt meningitis 4) allergies - negative, sh-negative, fh-nc, mar noted, notes and records noted 5) d/w RN and patient at length P) 1) consider starting ganciclovir - oral valganciclovir available at this facility but not iv ganciclovir, d/w pharmacy 2) get baseline cmv pcr quantitative level, f/u on serology, watch labs, cbc 3) continue per primary and consultants 4) orders noted and entered 5) GI evaluation noted 6) stool studies ordered 7) d/w Dr. Durham Subjective Constitutional: Reports: fatigue, Denies: fever HEENT: Denies: dysphagia Respiratory: Denies: shortness of breath Cardiovascular: Denies: chest pain Gastrointestinal/Abdominal: Denies: nausea, vomiting Genitourinary: Denies: dysuria, hematuria Neurologic: Denies: headache Psychiatric: Denies: depression Skin: Denies: rash Hematologic: Denies: bleeding Allergies: Coded Allergies: No Known Allergies (Unverified , 11/04/17) Objective Vital Signs Last 24 Hour Vital Signs Date Time Temp Pulse Resp B/P (MAP) Pulse Ox O2 Delivery O2 Flow Rate FiO2 11/12/17 09:31 99.1 11/12/17 08:00 100.7 99 18 106/67 100 11/12/17 04:00 98.7 95 17 99/65 100 11/12/17 00:00 100.9 111 18 107/74 97 11/11/17 20:00 99.9 106 18 102/67 94 11/11/17 18:23 102.7 95 20 114/70 97 Height (Feet): 5 Height (Inches): 4.00 Weight (Pounds): 130 General Appearance: no acute distress HEENT: normocephalic, atraumatic, anicteric, mucous membranes moist, EOMI, pharynx normal, supple, no JVD Respiratory/Chest: lungs clear, normal breath sounds, no respiratory distress, no accessory muscle use Cardiovascular: normal rate, regular rhythm, no gallop/murmur, no JVD Abdomen: normal bowel sounds, soft, non tender, no organomegaly, non distended Genitourinary: other - no anders Extremities: no cyanosis Skin: no rash 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, alert, oriented x 3, responsive Lymphatic: no neck adenopathy Musculoskeletal: no effusion Objective chest x-ray - negative CT scan - hepatomegaly and splenomegaly noted, no abscess, no sig adenopathy us abdomen pending echo - no vegetations mentioned Microbiology Date/Time Source Procedure Growth Status 11/08/17 11:30 Blood Blood Culture - Preliminary NO GROWTH AFTER 72 HOURS Resulted 11/06/17 13:40 Nasal Nares Influenza Types A,B Antigen (CHRISTIAN) - Final Complete 11/04/17 19:35 Urine,Clean Catch Urine Culture - Final Mixed Gram Positive Organism Complete Labs Test 11/09/17 16:30 11/10/17 05:35 11/10/17 07:30 11/11/17 08:30 Urine Opiates Screen Negative (NEGATIVE) Urine Barbiturates Screen Negative (NEGATIVE) Phencyclidine (PCP) Screen Negative (NEGATIVE) Urine Amphetamines Screen Negative (NEGATIVE) Urine Benzodiazepines Screen Negative (NEGATIVE) Urine Cocaine Screen Negative (NEGATIVE) Urine Marijuana (THC) Screen Negative (NEGATIVE) Prothrombin Time 10.7 SEC (9.30-11.50) Prothromb Time International Ratio 1.0 (0.9-1.1) Activated Partial Thromboplast Time 31 SEC (23-33) C-Reactive Protein, Quantitative 5.1 mg/dL (0.00-0.90) White Blood Count 7.3 K/UL (4.8-10.8) Red Blood Count 4.46 M/UL (4.70-6.10) Hemoglobin 13.5 G/DL (14.2-18.0) Hematocrit 39.2 % (42.0-52.0) Mean Corpuscular Volume 88 FL (80-99) Mean Corpuscular Hemoglobin 30.2 PG (27.0-31.0) Mean Corpuscular Hemoglobin Concent 34.3 G/DL (32.0-36.0) Red Cell Distribution Width 12.0 % (11.6-14.8) Platelet Count 272 K/UL (150-450) Mean Platelet Volume 5.7 FL (6.5-10.1) Neutrophils (%) (Auto) 31.1 % (45.0-75.0) Lymphocytes (%) (Auto) 52.7 % (20.0-45.0) Monocytes (%) (Auto) 13.0 % (1.0-10.0) Eosinophils (%) (Auto) 2.3 % (0.0-3.0) Basophils (%) (Auto) 1.0 % (0.0-2.0) Sodium Level 132 MMOL/L (136-145) Potassium Level 4.3 MMOL/L (3.5-5.1) Chloride Level 103 MMOL/L (98-107) Carbon Dioxide Level 24 MMOL/L (21-32) Anion Gap 5 mmol/L (5-15) Blood Urea Nitrogen 6 mg/dL (7-18) Creatinine 0.8 MG/DL (0.55-1.30) Estimat Glomerular Filtration Rate > 60 mL/min (>60) Glucose Level 99 MG/DL (74-106) Calcium Level 8.6 MG/DL (8.5-10.1) Magnesium Level 2.1 MG/DL (1.8-2.4) Total Bilirubin 0.4 MG/DL (0.2-1.0) Aspartate Amino Transf (AST/SGOT) 92 U/L (15-37) Alanine Aminotransferase (ALT/SGPT) 187 U/L (12-78) Alkaline Phosphatase 126 U/L (46-116) Total Protein 7.2 G/DL (6.4-8.2) Albumin 2.7 G/DL (3.4-5.0) Globulin 4.5 g/dL Albumin/Globulin Ratio 0.6 (1.0-2.7) Current Medications Medications (Trade) Dose Ordered Sig/Mark Route PRN Reason Start Time Stop Time Status Last Admin Dose Admin Acetaminophen (Tylenol) 500 mg Q6H PRN ORAL Headache/Temp > 101 11/06/17 18:00 12/06/17 17:59 11/07/17 16:43 Acetaminophen/ Butalbital/ Caffeine (Fioricet) 1 tab Q6H PRN ORAL HEADACHE 11/10/17 08:30 12/10/17 08:29 11/11/17 11:19 Cetylpyridinium Chloride (Cepacol) 1 lozg Q2H PRN KORIN sore throat 11/08/17 17:00 12/08/17 16:59 Diphenhydramine HCl (Benadryl) 25 mg Q6H PRN IVP Itching 11/06/17 17:00 12/06/17 16:59 Fexofenadine HCl (Sima) 60 mg TWICE A DAY ORAL 11/10/17 09:00 12/10/17 08:59 11/12/17 08:59 Finasteride (Proscar) 2.5 mg QHS ORAL 11/07/17 21:00 12/07/17 20:59 11/11/17 22:31 Guaifenesin/ Dextromethorphan (Robitussin DM) 10 ml Q4H PRN ORAL For Cough 11/08/17 17:00 12/08/17 16:59 Hydromorphone HCl (Dilaudid) 0.5 mg Q4H PRN IVP Unrelieved Jhe-ir-Xozfbd Pain 11/06/17 17:15 11/13/17 17:14 11/10/17 03:28 Ketorolac Tromethamine (Toradol 30mg) 30 mg Q6H PRN IV pain (4-6) /fever 11/11/17 12:00 11/16/17 11:59 11/12/17 09:01 Ondansetron HCl (Zofran) 4 mg Q6H PRN IVP Nausea & Vomiting 11/04/17 23:30 12/04/17 23:29 Prochlorperazine (Compazine) 10 mg Q6H PRN IVP Nausea & Vomiting 11/07/17 10:15 12/07/17 10:14 Pseudoephedrine HCl (Sudafed) 30 mg Q6H PRN ORAL sinus pain, congestion 11/09/17 10:30 12/09/17 10:29 Sodium Chloride 1,000 ml @ 100 mls/hr Q10H IV 11/11/17 22:00 12/11/17 21:59 11/12/17 09:02 Zolpidem Tartrate (Ambien) 5 mg HSPRN PRN ORAL Insomnia 11/06/17 17:00 11/13/17 16:59 ANABELA MICHAEL Nov 12, 2017 12:40
[2017-11-12 16:00] VITALS: BP 114/60
[2017-11-12 20:00] VITALS: BP 111/62
--- NOTE | 2017-11-12 22:57 | General Progress Note ---
Assessment/Plan Problem List: (1) Cytomegalovirus (CMV) viremia ICD Codes: B25.9 - Cytomegaloviral disease, unspecified SNOMED: 4982024547414107 (2) Sepsis ICD Codes: A41.9 - Sepsis, unspecified organism SNOMED: 50889971 (3) SIRS (systemic inflammatory response syndrome) ICD Codes: R65.10 - Systemic inflammatory response syndrome (SIRS) of non- infectious origin without acute organ dysfunction SNOMED: 376349894 (4) Febrile illness, acute ICD Codes: R50.9 - Fever, unspecified SNOMED: 087389103 (5) Transaminitis ICD Codes: R74.0 - Nonspecific elevation of levels of transaminase and lactic acid dehydrogenase [LDH] SNOMED: 738613305, 612889374 (6) Elevated liver function tests ICD Codes: R79.89 - Other specified abnormal findings of blood chemistry SNOMED: 658413884, 351019114 (7) Dehydration ICD Codes: E86.0 - Dehydration SNOMED: 54839945 (8) Hyponatremia ICD Codes: E87.1 - Hypo-osmolality and hyponatremia SNOMED: 89618764 (9) History of Crohn's disease ICD Codes: Z87.19 - Personal history of other diseases of the digestive system SNOMED: 762227782353201 (10) Hepatomegaly ICD Codes: R16.0 - Hepatomegaly, not elsewhere classified SNOMED: 99641414 Status: stable Assessment/Plan CMV DNA PCR is positive so likely fevers 2/2 CMV viremia. ID consulted, appreciate rec's s/p tamiflue (11/06-11/11). Influenza rapid test neg but maybe false positive. [place] PCR [place] [facility] [place] repeat blood cultures fr 11/08/17--ngtd D/c ceftriaxone per ID (stopped 11/10/17) D/c azithro and doxy per ID (stopped 11/12/17) Start valganciclovir for CMV viremia per ID (11/12-) F/u blood cultures from admission--ngtd F/u EBV, monospot, CMV HIV neg, hepatitis panel neg CT head, c/a/p reviewed and showed no source of infection; showed hepatomegaly GI consulted Hold 6-mercaptopurine per GI F/u ECHO--EF 55-60% F/u U/S abd--shows fatty liver Trend LFTs mIVFs Tylenol + trial of Ketorlac (risks discussed and pt wishes to try it) Fioricet PRN headache Consider LP if fevers persist Pain control, bowel regimen Supportive care DC once fevers improved and tolerating antiviral therapy DVT ppx: early ambulation. pt refusing hsq FULL CODE D/w pt, mother, ID, RN extensively regarding plan of care and dispo. D/w IBD at [facility]--recommends starting treatment for CMV. No need for colonoscopy if diarrhea at baseline Subjective Time patient seen: 09:30 ROS Limited/Unobtainable: No Constitutional: Reports: fever, malaise, weakness HEENT: Reports: throat pain Cardiovascular: Reports: no symptoms Respiratory: Reports: cough, shortness of breath Gastrointestinal/Abdominal: Reports: diarrhea Genitourinary: Reports: no symptoms Neurologic/Psychiatric: Reports: no symptoms Endocrine: Reports: no symptoms Hematologic/Lymphatic: Reports: no symptoms Allergies: Coded Allergies: No Known Allergies (Unverified , 11/04/17) Subjective No acute o/n events Fever to 102 yesterday evening, afebrile this AM LFTs downtrending CMV DNA PCR is positive. D/w ID and GI. Given pt with diarrhea at baseline, can hold off on colonoscopy per GI. Will start treatment for CMV per ID Headache improved w/ Fioricet Pt states Toradol helps with fevers and pain. Feels fevers less frequent and less severe. Cough improved. Objective Last 24 Hour Vital Signs Date Time Temp Pulse Resp B/P (MAP) Pulse Ox O2 Delivery O2 Flow Rate FiO2 11/12/17 20:00 99.2 94 17 111/62 100 11/12/17 16:49 98.9 11/12/17 16:00 100.8 101 18 114/60 100 11/12/17 12:00 99.0 99 18 114/77 100 11/12/17 08:00 100.7 99 18 106/67 100 11/12/17 04:00 98.7 95 17 99/65 100 11/12/17 00:00 100.9 111 18 107/74 97 Intake and Output 11/11/17 11/12/17 19:00 07:00 Intake Total 700 ml 960 ml Balance 700 ml 960 ml Intake Oral 700 ml 360 ml IV Total 600 ml # Voids 3 2 # Bowel Movements 1 Laboratory Tests 11/12/17 13:05: CSF Herpes Simplex II DNA (PCR) [Pending], Cytomegalovirus IgG Antibody [Pending ], Cytomegalovirus DNA PCR copies/ml [Pending], Cytomegalovirus DNA PCR log10 [ Pending], Herpes Simplex Virus I DNA (PCR) [Pending], Varicella-Zoster IgG Antibody [Pending], Varicella-Zoster IgM Antibody [Pending] Height (Feet): 5 Height (Inches): 4.00 Weight (Pounds): 130 Objective General: alert, cooperative, no distress, appears stated age Head: normocephalic, without obvious abnormality, atraumatic Eyes: conjunctivae/corneas clear. PERRL, EOM's intact Throat: lips, mucosa, and tongue normal. MMM Neck: supple, symmetrical, trachea midline, and no JVD Lungs: clear to auscultation bilaterally Heart: regular rate and rhythm, S1, S2 normal, no murmur, click, rub or gallop Abdomen: soft, non-tender, non-distended, bowel sounds normal Extremities: extremities normal, atraumatic, no cyanosis or edema Pulses: 2+ and symmetric Skin: skin color, texture, turgor normal; no rashes or lesions Neurologic: grossly normal, no focal deficits Salina Driver M.D. Nov 12, 2017 22:57
[2017-11-13] VITALS: BP 96/57
[2017-11-13 04:00] VITALS: BP 102/61
[2017-11-13] MEDS: Ketorolac 30mg Inj IV PRN (06:23)
[2017-11-13 08:00] VITALS: BP 103/68
[2017-11-13 12:00] VITALS: BP 119/77
[2017-11-13 12:53] LABS: HEMATOCRIT 36.6 % (42.0-52.0); HEMOGLOBIN 12.9 G/DL (14.2-18.0); MEAN CORPUSCULAR VOLUME 89 FL (80-99); PLATELET COUNT 274 K/UL (150-450); RED BLOOD COUNT 4.13 M/UL (4.70-6.10); RED CELL DISTRIBUTION WIDTH 12.1 % (11.6-14.8); WHITE BLOOD COUNT 6.8 K/UL (4.8-10.8)
[2017-11-13 13:34] LABS: ALANINE AMINOTRANSFERASE 135 U/L (12-78); ALBUMIN 2.7 G/DL (3.4-5.0); ALBUMIN/GLOBULIN RATIO 0.6 (1.0-2.7); ALKALINE PHOSPHATASE 120 U/L (46-116); ANION GAP 7 mmol/L (5-15); ASPARTATE AMINO TRANSFERASE 73 U/L (15-37); BILIRUBIN,TOTAL 0.4 MG/DL (0.2-1.0); BLOOD UREA NITROGEN 8 mg/dL (7-18); CALCIUM 8.4 MG/DL (8.5-10.1); CARBON DIOXIDE 25 MMOL/L (21-32); CHLORIDE 104 MMOL/L (98-107); CREATININE 0.7 MG/DL (0.55-1.30); POTASSIUM 3.9 MMOL/L (3.5-5.1); SODIUM 136 MMOL/L (136-145)
--- NOTE | 2017-11-13 14:18 | General Progress Note ---
Assessment/Plan Problem List: (1) Cytomegalovirus (CMV) viremia ICD Codes: B25.9 - Cytomegaloviral disease, unspecified SNOMED: 6683386166529728 (2) Sepsis ICD Codes: A41.9 - Sepsis, unspecified organism SNOMED: 40313257 (3) SIRS (systemic inflammatory response syndrome) ICD Codes: R65.10 - Systemic inflammatory response syndrome (SIRS) of non- infectious origin without acute organ dysfunction SNOMED: 793694716 (4) Febrile illness, acute ICD Codes: R50.9 - Fever, unspecified SNOMED: 080213032 (5) Transaminitis ICD Codes: R74.0 - Nonspecific elevation of levels of transaminase and lactic acid dehydrogenase [LDH] SNOMED: 771873226, 904514154 (6) Elevated liver function tests ICD Codes: R79.89 - Other specified abnormal findings of blood chemistry SNOMED: 254173622, 172596273 (7) Dehydration ICD Codes: E86.0 - Dehydration SNOMED: 74745858 (8) Hyponatremia ICD Codes: E87.1 - Hypo-osmolality and hyponatremia SNOMED: 51533229 (9) History of Crohn's disease ICD Codes: Z87.19 - Personal history of other diseases of the digestive system SNOMED: 995110684898872 (10) Hepatomegaly ICD Codes: R16.0 - Hepatomegaly, not elsewhere classified SNOMED: 38884635 Status: stable Assessment/Plan CMV DNA PCR is positive so likely fevers 2/2 CMV viremia. ID consulted, appreciate rec's s/p tamiflu (11/06-11/11). Influenza rapid test neg but maybe false positive. No PCR test available at [facility] [place] F/u repeat blood cultures fr 11/08/17--ngtd D/c ceftriaxone per ID (stopped 11/10/17) D/c azithro and doxy per ID (stopped 11/12/17) Start valganciclovir for CMV viremia per ID (11/13-) Labs every other day F/u blood cultures from admission--ngtd F/u EBV, monospot, CMV HIV neg, hepatitis panel neg CT head, c/a/p reviewed and showed no source of infection; showed hepatomegaly GI consulted Hold 6-mercaptopurine per GI F/u ECHO--EF 55-60% F/u U/S abd--shows fatty liver Trend LFTs mIVFs Tylenol + trial of Ketorlac (risks discussed and pt wishes to try it) Fioricet PRN headache Consider LP if fevers persist Pain control, bowel regimen Supportive care DC once fevers improved and tolerating antiviral therapy DVT ppx: early ambulation. pt refusing hsq FULL CODE D/w pt, mother, ID, RN extensively regarding plan of care and dispo. D/w IBD at [facility]--recommends starting treatment for CMV. No need for colonoscopy if diarrhea at baseline Subjective Date patient seen: Nov 13, 2017 Time patient seen: 12:00 ROS Limited/Unobtainable: No Constitutional: Reports: fever, malaise, weakness HEENT: Reports: no symptoms Cardiovascular: Reports: no symptoms Respiratory: Reports: no symptoms Gastrointestinal/Abdominal: Reports: no symptoms Genitourinary: Reports: no symptoms Neurologic/Psychiatric: Reports: no symptoms Endocrine: Reports: no symptoms Hematologic/Lymphatic: Reports: no symptoms Allergies: Coded Allergies: No Known Allergies (Unverified , 11/04/17) All Systems: reviewed and negative except above Subjective No acute o/n events Fever to 102 yesterday evening, low grade fevers this AM LFTs downtrending CMV DNA PCR is positive. D/w ID and GI. Given pt with diarrhea at baseline, can hold off on colonoscopy per GI. Started on treatment for CMV Headache improved w/ Fioricet Pt states Toradol helps with fevers and pain. Feels fevers less frequent and less severe. Cough still persistent. Having some reflux/heartburn Didn't start to start valganciclovir yesterday night, preferred to wait until AM Objective Last 24 Hour Vital Signs Date Time Temp Pulse Resp B/P (MAP) Pulse Ox O2 Delivery O2 Flow Rate FiO2 11/13/17 11:25 98.8 11/13/17 06:45 100.1 11/13/17 04:00 100.1 99 18 102/61 99 11/13/17 00:00 99.0 102 18 96/57 98 11/12/17 20:00 99.2 94 17 111/62 100 11/12/17 16:00 100.8 101 18 114/60 100 Intake and Output 11/12/17 11/13/17 19:00 07:00 Intake Total 850 ml 1700 ml Balance 850 ml 1700 ml Intake Oral 750 ml 600 ml IV Total 100 ml 1100 ml # Voids 3 2 Laboratory Tests 11/13/17 12:10: White Blood Count 6.8, Red Blood Count 4.13L, Hemoglobin 12.9L, Hematocrit 36.6L , Mean Corpuscular Volume 89, Mean Corpuscular Hemoglobin 31.2H, Mean Corpuscular Hemoglobin Concent 35.1, Red Cell Distribution Width 12.1, Platelet Count 274, Mean Platelet Volume 5.3L, Neutrophils (%) (Auto) , Lymphocytes (%) ( Auto) , Monocytes (%) (Auto) , Eosinophils (%) (Auto) , Basophils (%) (Auto) , Differential Total Cells Counted 100, Neutrophils % (Manual) 34L, Lymphocytes % (Manual) 56H, Monocytes % (Manual) 7, Eosinophils % (Manual) 3, Basophils % ( Manual) 0, Band Neutrophils 0, Platelet Estimate Adequate, Platelet Morphology Normal, Red Blood Cell Morphology Normal, Sodium Level 136, Potassium Level 3.9 , Chloride Level 104, Carbon Dioxide Level 25, Anion Gap 7, Blood Urea Nitrogen 8, Creatinine 0.7, Estimat Glomerular Filtration Rate > 60, Glucose Level 102, Calcium Level 8.4L, Total Bilirubin 0.4, Aspartate Amino Transf (AST/SGOT) 73H, Alanine Aminotransferase (ALT/SGPT) 135H, Alkaline Phosphatase 120H, Total Protein 7.3, Albumin 2.7L, Globulin 4.6, Albumin/Globulin Ratio 0.6L Height (Feet): 5 Height (Inches): 4.00 Weight (Pounds): 130 Objective General: alert, cooperative, no distress, appears stated age Head: normocephalic, without obvious abnormality, atraumatic Eyes: conjunctivae/corneas clear. PERRL, EOM's intact Throat: lips, mucosa, and tongue normal. MMM Neck: supple, symmetrical, trachea midline, and no JVD Lungs: clear to auscultation bilaterally Heart: regular rate and rhythm, S1, S2 normal, no murmur, click, rub or gallop Abdomen: soft, non-tender, non-distended, bowel sounds normal Extremities: extremities normal, atraumatic, no cyanosis or edema Pulses: 2+ and symmetric Skin: skin color, texture, turgor normal; no rashes or lesions Neurologic: grossly normal, no focal deficits Salina Driver M.D. Nov 13, 2017 14:18
[2017-11-13] MEDS ORDERED: Tums 500mg ORAL PRN (14:30)
[2017-11-13] MEDS ORDERED: Acetaminophen 500mg (ES) tab ORAL PRN (14:30)
--- NOTE | 2017-11-13 15:06 | GI Progress Note ---
Assessment/Plan Problems: (1) Elevated liver function tests ICD Codes: R79.89 - Other specified abnormal findings of blood chemistry SNOMED: 136254304, 842917473 (2) Hepatomegaly ICD Codes: R16.0 - Hepatomegaly, not elsewhere classified SNOMED: 61818786 (3) Fatty liver ICD Codes: K76.0 - Fatty (change of) liver, not elsewhere classified SNOMED: 678948625 (4) History of Crohn's disease ICD Codes: Z87.19 - Personal history of other diseases of the digestive system SNOMED: 098029734771330 (5) Transaminitis ICD Codes: R74.0 - Nonspecific elevation of levels of transaminase and lactic acid dehydrogenase [LDH] SNOMED: 190660322, 346899281 Status: stable, unchanged Status Narrative Discussed with Dr. Babb. Assessment/Plan CT AP reviewed >> - No evidence of malignant neoplasm. No abscess or focus of infection/ inflammation identified. - Hepatomegaly with fatty infiltration. Mild splenomegaly noted. hepatitis panel negative ESR mild elevation, C-reactive protein elevation transaminitis >> downtrending abdominal U/S >> fatty liver regular diet, tolerating am labs pain mgmt patient to 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 Vital Signs Date Time Temp Pulse Resp B/P (MAP) Pulse Ox O2 Delivery O2 Flow Rate FiO2 11/13/17 12:00 98.8 102 18 119/77 99 11/13/17 11:25 98.8 11/13/17 08:00 99.1 105 18 103/68 99 11/13/17 06:45 100.1 11/13/17 04:00 100.1 99 18 102/61 99 11/13/17 00:00 99.0 102 18 96/57 98 11/12/17 20:00 99.2 94 17 111/62 100 11/12/17 16:00 100.8 101 18 114/60 100 Intake and Output 11/12/17 11/13/17 19:00 07:00 Intake Total 850 ml 1700 ml Balance 850 ml 1700 ml Intake Oral 750 ml 600 ml IV Total 100 ml 1100 ml # Voids 3 2 Laboratory Tests Test 11/13/17 12:10 White Blood Count 6.8 K/UL (4.8-10.8) Red Blood Count 4.13 M/UL (4.70-6.10) L Hemoglobin 12.9 G/DL (14.2-18.0) L Hematocrit 36.6 % (42.0-52.0) L Mean Corpuscular Volume 89 FL (80-99) Mean Corpuscular Hemoglobin 31.2 PG (27.0-31.0) H Mean Corpuscular Hemoglobin Concent 35.1 G/DL (32.0-36.0) Red Cell Distribution Width 12.1 % (11.6-14.8) Platelet Count 274 K/UL (150-450) Mean Platelet Volume 5.3 FL (6.5-10.1) L Neutrophils (%) (Auto) % (45.0-75.0) Lymphocytes (%) (Auto) % (20.0-45.0) Monocytes (%) (Auto) % (1.0-10.0) Eosinophils (%) (Auto) % (0.0-3.0) Basophils (%) (Auto) % (0.0-2.0) Differential Total Cells Counted 100 Neutrophils % (Manual) 34 % (45-75) L Lymphocytes % (Manual) 56 % (20-45) H Monocytes % (Manual) 7 % (1-10) Eosinophils % (Manual) 3 % (0-3) Basophils % (Manual) 0 % (0-2) Band Neutrophils 0 % (0-8) Platelet Estimate Adequate Platelet Morphology Normal Red Blood Cell Morphology Normal Sodium Level 136 MMOL/L (136-145) Potassium Level 3.9 MMOL/L (3.5-5.1) Chloride Level 104 MMOL/L (98-107) Carbon Dioxide Level 25 MMOL/L (21-32) Anion Gap 7 mmol/L (5-15) Blood Urea Nitrogen 8 mg/dL (7-18) Creatinine 0.7 MG/DL (0.55-1.30) Estimat Glomerular Filtration Rate > 60 mL/min (>60) Glucose Level 102 MG/DL (74-106) Calcium Level 8.4 MG/DL (8.5-10.1) L Total Bilirubin 0.4 MG/DL (0.2-1.0) Aspartate Amino Transf (AST/SGOT) 73 U/L (15-37) H Alanine Aminotransferase (ALT/SGPT) 135 U/L (12-78) H Alkaline Phosphatase 120 U/L (46-116) H Total Protein 7.3 G/DL (6.4-8.2) Albumin 2.7 G/DL (3.4-5.0) L Globulin 4.6 g/dL Albumin/Globulin Ratio 0.6 (1.0-2.7) L Height (Feet): 5 Height (Inches): 4.00 Weight (Pounds): 130 General Appearance: WD/WN, no apparent distress, alert Cardiovascular: normal rate Respiratory/Chest: normal breath sounds, no respiratory distress Abdominal Exam: normal bowel sounds, non tender, soft Extremities: normal range of motion, non-tender Gracia Mendenhall N.P. Nov 13, 2017 15:06
[2017-11-13] MEDS: Benzonatate 100mg Perles ORAL SCH ×2 (15:29→20:39)
[2017-11-13 16:00] VITALS: BP 115/75
[2017-11-13] MEDS: Acetaminophen 500mg (ES) tab ORAL PRN (16:56)
--- NOTE | 2017-11-13 17:03 | Infectious Diseases Prog Note ---
Assessment/Plan Assessment/Plan A) 1) fevers, cough, headache better, elevated LDH, LFT's hepatomegaly/ splenomegaly, ? viral, ? bacterial, ? fungal, ? cmv infection - cmv qualitative pcr + - lft's improving - serology noted to date - rickettsia - 1:64 - doubtful significance, > 1:64 is c/w active/recent infection and doxycycline did not help clinically or fevers, also no risk factors for rickettsia infection 2) Crohn's dx with immunosuppression tx 3) [place] - doubt meningitis 4) allergies - negative, sh-negative, fh-nc, mar noted, notes and records noted 5) d/w RN and patient at length P) 1) oral valganciclovir started today - will observe on tx 2) base line cmv pcr quantitative level ordered, f/u on serology, watch labs , cbc, watch temps, check ldh, watch lft's 3) continue per primary and consultants 4) orders noted and entered 5) GI evaluation noted 6) d/w Dr. Durham Subjective Constitutional: Reports: fever - less today so far , fatigue HEENT: Denies: congestion Respiratory: Denies: shortness of breath Cardiovascular: Denies: chest pain Gastrointestinal/Abdominal: Reports: diarrhea, Denies: nausea, vomiting Genitourinary: Reports: other - no anders Neurologic: Reports: headache - controlled Psychiatric: Reports: no symptoms Skin: Denies: rash Hematologic: Denies: bleeding Musculoskeletal: Reports: pain - controlled Allergies: Coded Allergies: No Known Allergies (Unverified , 11/04/17) Objective Vital Signs Last 24 Hour Vital Signs Date Time Temp Pulse Resp B/P (MAP) Pulse Ox O2 Delivery O2 Flow Rate FiO2 11/13/17 16:00 98.4 72 18 115/75 100 Room Air 11/13/17 12:00 98.8 102 18 119/77 99 11/13/17 11:25 98.8 11/13/17 08:00 99.1 105 18 103/68 99 11/13/17 06:45 100.1 11/13/17 04:00 100.1 99 18 102/61 99 11/13/17 00:00 99.0 102 18 96/57 98 11/12/17 20:00 99.2 94 17 111/62 100 Height (Feet): 5 Height (Inches): 4.00 Weight (Pounds): 130 General Appearance: no acute distress HEENT: normocephalic, atraumatic, anicteric Respiratory/Chest: lungs clear, normal breath sounds, no respiratory distress, no accessory muscle use Cardiovascular: normal rate, regular rhythm, no gallop/murmur, no JVD Abdomen: normal bowel sounds, soft, non tender, no organomegaly, non distended Genitourinary: other - no anders Extremities: no cyanosis Skin: no rash 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, alert, responsive Lymphatic: no neck adenopathy Musculoskeletal: no effusion Objective chest x-ray - negative CT scan - hepatomegaly and splenomegaly noted, no abscess, no sig adenopathy us abdomen pending echo - no vegetations mentioned Microbiology Date/Time Source Procedure Growth Status 11/08/17 11:30 Blood Blood Culture - Preliminary NO GROWTH AFTER 4 DAYS Resulted 11/06/17 13:40 Nasal Nares Influenza Types A,B Antigen (CHRISTIAN) - Final Complete 11/04/17 19:35 Urine,Clean Catch Urine Culture - Final Mixed Gram Positive Organism Complete serology noted - Laboratory Tests Test 11/13/17 12:10 White Blood Count 6.8 K/UL (4.8-10.8) Red Blood Count 4.13 M/UL (4.70-6.10) L Hemoglobin 12.9 G/DL (14.2-18.0) L Hematocrit 36.6 % (42.0-52.0) L Mean Corpuscular Volume 89 FL (80-99) Mean Corpuscular Hemoglobin 31.2 PG (27.0-31.0) H Mean Corpuscular Hemoglobin Concent 35.1 G/DL (32.0-36.0) Red Cell Distribution Width 12.1 % (11.6-14.8) Platelet Count 274 K/UL (150-450) Mean Platelet Volume 5.3 FL (6.5-10.1) L Neutrophils (%) (Auto) % (45.0-75.0) Lymphocytes (%) (Auto) % (20.0-45.0) Monocytes (%) (Auto) % (1.0-10.0) Eosinophils (%) (Auto) % (0.0-3.0) Basophils (%) (Auto) % (0.0-2.0) Differential Total Cells Counted 100 Neutrophils % (Manual) 34 % (45-75) L Lymphocytes % (Manual) 56 % (20-45) H Monocytes % (Manual) 7 % (1-10) Eosinophils % (Manual) 3 % (0-3) Basophils % (Manual) 0 % (0-2) Band Neutrophils 0 % (0-8) Platelet Estimate Adequate Platelet Morphology Normal Red Blood Cell Morphology Normal Sodium Level 136 MMOL/L (136-145) Potassium Level 3.9 MMOL/L (3.5-5.1) Chloride Level 104 MMOL/L (98-107) Carbon Dioxide Level 25 MMOL/L (21-32) Anion Gap 7 mmol/L (5-15) Blood Urea Nitrogen 8 mg/dL (7-18) Creatinine 0.7 MG/DL (0.55-1.30) Estimat Glomerular Filtration Rate > 60 mL/min (>60) Glucose Level 102 MG/DL (74-106) Calcium Level 8.4 MG/DL (8.5-10.1) L Total Bilirubin 0.4 MG/DL (0.2-1.0) Aspartate Amino Transf (AST/SGOT) 73 U/L (15-37) H Alanine Aminotransferase (ALT/SGPT) 135 U/L (12-78) H Alkaline Phosphatase 120 U/L (46-116) H Total Protein 7.3 G/DL (6.4-8.2) Albumin 2.7 G/DL (3.4-5.0) L Globulin 4.6 g/dL Albumin/Globulin Ratio 0.6 (1.0-2.7) L Current Medications Medications (Trade) Dose Ordered Sig/Mark Route PRN Reason Start Time Stop Time Status Last Admin Dose Admin Acetaminophen (Tylenol) 325 mg Q4H PRN ORAL mild pain/fever 11/13/17 14:30 12/13/17 14:29 Acetaminophen (Tylenol) 500 mg Q4HR PRN ORAL severe pain/fever 11/13/17 14:45 12/06/17 17:59 Acetaminophen/ Butalbital/ Caffeine (Fioricet) 1 tab Q6H PRN ORAL HEADACHE 11/10/17 08:30 12/10/17 08:29 11/13/17 10:27 Al Hydroxide/Mg Hydroxide (Mylanta) 20 ml Q6H PRN ORAL heartburn, reflux 11/13/17 14:30 12/13/17 14:29 Benzonatate (Tessalon Perles) 100 mg THREE TIMES A DAY ORAL 11/13/17 15:00 12/13/17 14:59 11/13/17 15:29 Calcium Carbonate (Tums) 1,000 mg Q4H PRN ORAL heartburn, reflux 11/13/17 14:30 12/13/17 14:29 Cetylpyridinium Chloride (Cepacol) 1 lozg Q2H PRN KORIN sore throat 11/08/17 17:00 12/08/17 16:59 Diphenhydramine HCl (Benadryl) 25 mg Q6H PRN IVP Itching 11/06/17 17:00 12/06/17 16:59 Fexofenadine HCl (Sima) 60 mg TWICE A DAY ORAL 11/10/17 09:00 12/10/17 08:59 11/13/17 08:51 Finasteride (Proscar) 2.5 mg QHS ORAL 11/07/17 21:00 12/07/17 20:59 11/12/17 21:25 Guaifenesin/ Dextromethorphan (Robitussin DM) 10 ml Q4H PRN ORAL For Cough 11/08/17 17:00 12/08/17 16:59 11/12/17 21:58 Hydromorphone HCl (Dilaudid) 0.5 mg Q4H PRN IVP Unrelieved Ebf-hn-Orpltv Pain 11/06/17 17:15 11/13/17 17:14 11/10/17 03:28 Ketorolac Tromethamine (Toradol 30mg) 30 mg Q6H PRN IV pain (4-6) /fever 11/11/17 12:00 11/16/17 11:59 11/13/17 06:23 Ondansetron HCl (Zofran) 4 mg Q6H PRN IVP Nausea & Vomiting 11/04/17 23:30 12/04/17 23:29 Prochlorperazine (Compazine) 10 mg Q6H PRN IVP Nausea & Vomiting 11/07/17 10:15 12/07/17 10:14 Pseudoephedrine HCl (Sudafed) 30 mg Q6H PRN ORAL sinus pain, congestion 11/09/17 10:30 12/09/17 10:29 Sodium Chloride 1,000 ml @ 100 mls/hr Q10H IV 11/11/17 22:00 12/11/17 21:59 11/13/17 13:46 Valganciclovir (Valcyte) 900 mg Q12HR ORAL 11/12/17 21:00 12/12/17 20:59 11/13/17 08:51 Zolpidem Tartrate (Ambien) 5 mg HSPRN PRN ORAL Insomnia 11/06/17 17:00 11/13/17 16:59 ANABELA MICHAEL Nov 13, 2017 17:03
[2017-11-13 20:00] VITALS: BP 90/52
[2017-11-14] VITALS: BP 88/54
[2017-11-14] MEDS: Acetaminophen 500mg (ES) tab ORAL PRN ×2 (00:27→18:43)
[2017-11-14 04:06] VITALS: BP 113/78
[2017-11-14 08:15] VITALS: BP 118/79
[2017-11-14] MEDS ORDERED: MERCAPTOPURINE ORAL SCH (09:00)
[2017-11-14] MEDS: Benzonatate 100mg Perles ORAL SCH ×3 (09:12→17:34)
--- NOTE | 2017-11-14 11:23 | Infectious Diseases Prog Note ---
Assessment/Plan Assessment/Plan A) 1) fevers, cough, headache better, elevated LDH, LFT's hepatomegaly/ splenomegaly, ? viral, ? bacterial, ? fungal, ? cmv infection - cmv qualitative pcr + - lft's improving - serology noted to date - rickettsia - 1:64 - doubtful significance, > 1:64 is c/w active/recent infection and doxycycline did not help clinically or fevers, also no risk factors for rickettsia infection - still with fevers 2) Crohn's dx with immunosuppression tx 3) [place] - doubt meningitis 4) allergies - negative, sh-negative, fh-nc, mar noted, notes and records noted 5) d/w RN and patient at length P) 1) oral valganciclovir day # 2, will observe on tx 2) base line cmv pcr quantitative level ordered, f/u on serology, watch labs , cbc, watch temps, check ldh, watch lft's 3) continue per primary and consultants 4) orders noted and entered 5) may need wbc scan and more invasive testing/studies such as bone marrow, colonoscopy etc..., if fevers persist Subjective Constitutional: Reports: fever HEENT: Denies: congestion Respiratory: Denies: shortness of breath Cardiovascular: Denies: chest pain Gastrointestinal/Abdominal: Denies: nausea, vomiting, diarrhea Genitourinary: Denies: dysuria, hematuria Neurologic: Reports: headache - controlled Psychiatric: Denies: depression Skin: Denies: rash Hematologic: Denies: bleeding Musculoskeletal: Denies: pain Allergies: Coded Allergies: No Known Allergies (Unverified , 11/04/17) Objective Vital Signs Last 24 Hour Vital Signs Date Time Temp Pulse Resp B/P (MAP) Pulse Ox O2 Delivery O2 Flow Rate FiO2 11/14/17 08:15 Room Air 11/14/17 08:15 97.0 94 20 118/79 100 11/14/17 04:06 98.7 95 18 113/78 99 11/14/17 01:26 98.5 11/14/17 00:00 102.2 117 18 88/54 95 11/13/17 20:00 99.0 113 17 90/52 96 11/13/17 16:00 98.4 72 18 115/75 100 Room Air 11/13/17 12:00 98.8 102 18 119/77 99 11/13/17 11:25 98.8 Height (Feet): 5 Height (Inches): 4.00 Weight (Pounds): 130 General Appearance: no acute distress HEENT: normocephalic, atraumatic, anicteric, mucous membranes moist Respiratory/Chest: lungs clear, normal breath sounds, no respiratory distress, no accessory muscle use Cardiovascular: normal rate, regular rhythm, no gallop/murmur, no JVD Abdomen: normal bowel sounds, soft, non tender, no organomegaly, non distended Genitourinary: other - no anders Extremities: no cyanosis Skin: no rash 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, alert, responsive Lymphatic: no neck adenopathy Musculoskeletal: no effusion Objective chest x-ray - negative CT scan - hepatomegaly and splenomegaly noted, no abscess, no sig adenopathy us abdomen pending echo - no vegetations mentioned Microbiology Date/Time Source Procedure Growth Status 11/08/17 11:30 Blood Blood Culture - Final NO GROWTH AFTER 5 DAYS Complete 11/06/17 13:40 Nasal Nares Influenza Types A,B Antigen (CHRISTIAN) - Final Complete 11/04/17 19:35 Urine,Clean Catch Urine Culture - Final Mixed Gram Positive Organism Complete serology - noted Laboratory Tests Test 11/13/17 12:10 White Blood Count 6.8 K/UL (4.8-10.8) Red Blood Count 4.13 M/UL (4.70-6.10) L Hemoglobin 12.9 G/DL (14.2-18.0) L Hematocrit 36.6 % (42.0-52.0) L Mean Corpuscular Volume 89 FL (80-99) Mean Corpuscular Hemoglobin 31.2 PG (27.0-31.0) H Mean Corpuscular Hemoglobin Concent 35.1 G/DL (32.0-36.0) Red Cell Distribution Width 12.1 % (11.6-14.8) Platelet Count 274 K/UL (150-450) Mean Platelet Volume 5.3 FL (6.5-10.1) L Neutrophils (%) (Auto) % (45.0-75.0) Lymphocytes (%) (Auto) % (20.0-45.0) Monocytes (%) (Auto) % (1.0-10.0) Eosinophils (%) (Auto) % (0.0-3.0) Basophils (%) (Auto) % (0.0-2.0) Differential Total Cells Counted 100 Neutrophils % (Manual) 34 % (45-75) L Lymphocytes % (Manual) 56 % (20-45) H Monocytes % (Manual) 7 % (1-10) Eosinophils % (Manual) 3 % (0-3) Basophils % (Manual) 0 % (0-2) Band Neutrophils 0 % (0-8) Platelet Estimate Adequate Platelet Morphology Normal Red Blood Cell Morphology Normal Sodium Level 136 MMOL/L (136-145) Potassium Level 3.9 MMOL/L (3.5-5.1) Chloride Level 104 MMOL/L (98-107) Carbon Dioxide Level 25 MMOL/L (21-32) Anion Gap 7 mmol/L (5-15) Blood Urea Nitrogen 8 mg/dL (7-18) Creatinine 0.7 MG/DL (0.55-1.30) Estimat Glomerular Filtration Rate > 60 mL/min (>60) Glucose Level 102 MG/DL (74-106) Calcium Level 8.4 MG/DL (8.5-10.1) L Total Bilirubin 0.4 MG/DL (0.2-1.0) Aspartate Amino Transf (AST/SGOT) 73 U/L (15-37) H Alanine Aminotransferase (ALT/SGPT) 135 U/L (12-78) H Alkaline Phosphatase 120 U/L (46-116) H Total Protein 7.3 G/DL (6.4-8.2) Albumin 2.7 G/DL (3.4-5.0) L Globulin 4.6 g/dL Albumin/Globulin Ratio 0.6 (1.0-2.7) L Current Medications Medications (Trade) Dose Ordered Sig/Mark Route PRN Reason Start Time Stop Time Status Last Admin Dose Admin Acetaminophen (Tylenol) 325 mg Q4H PRN ORAL mild pain/fever 11/13/17 14:30 12/13/17 14:29 Acetaminophen (Tylenol) 500 mg Q4HR PRN ORAL severe pain/fever 11/13/17 14:45 12/06/17 17:59 11/14/17 00:27 Acetaminophen/ Butalbital/ Caffeine (Fioricet) 1 tab Q6H PRN ORAL HEADACHE 11/10/17 08:30 3/18 08:29 11/14/17 03:59 Al Hydroxide/Mg Hydroxide (Mylanta) 20 ml Q6H PRN ORAL heartburn, reflux 11/13/17 14:30 12/13/17 14:29 Benzonatate (Tessalon Perles) 100 mg THREE TIMES A DAY ORAL 11/13/17 15:00 12/13/17 14:59 11/14/17 09:12 Calcium Carbonate (Tums) 1,000 mg Q4H PRN ORAL heartburn, reflux 11/13/17 14:30 12/13/17 14:29 Cetylpyridinium Chloride (Cepacol) 1 lozg Q2H PRN KORIN sore throat 11/08/17 17:00 12/08/17 16:59 Diphenhydramine HCl (Benadryl) 25 mg Q6H PRN IVP Itching 11/06/17 17:00 12/06/17 16:59 Fexofenadine HCl (Sima) 60 mg TWICE A DAY ORAL 11/10/17 09:00 12/10/17 08:59 11/14/17 09:12 Finasteride (Proscar) 2.5 mg QHS ORAL 11/07/17 21:00 12/07/17 20:59 11/13/17 20:39 Guaifenesin/ Dextromethorphan (Robitussin DM) 10 ml Q4H PRN ORAL For Cough 11/08/17 17:00 12/08/17 16:59 11/12/17 21:58 Ketorolac Tromethamine (Toradol 30mg) 30 mg Q6H PRN IV pain (4-6) /fever 11/11/17 12:00 11/16/17 11:59 11/13/17 06:23 Ondansetron HCl (Zofran) 4 mg Q6H PRN IVP Nausea & Vomiting 11/04/17 23:30 12/04/17 23:29 Prochlorperazine (Compazine) 10 mg Q6H PRN IVP Nausea & Vomiting 11/07/17 10:15 12/07/17 10:14 Pseudoephedrine HCl (Sudafed) 30 mg Q6H PRN ORAL sinus pain, congestion 11/09/17 10:30 12/09/17 10:29 Sodium Chloride 1,000 ml @ 100 mls/hr Q10H IV 11/11/17 22:00 12/11/17 21:59 11/14/17 09:53 Valganciclovir (Valcyte) 900 mg Q12HR ORAL 11/12/17 21:00 12/12/17 20:59 11/14/17 09:13 ANABELA MICHAEL Nov 14, 2017 11:23
[2017-11-14 12:40] VITALS: BP 108/73
--- NOTE | 2017-11-14 13:47 | General Progress Note ---
Assessment/Plan Problem List: (1) Cytomegalovirus (CMV) viremia ICD Codes: B25.9 - Cytomegaloviral disease, unspecified SNOMED: 1896222400413768 (2) Sepsis ICD Codes: A41.9 - Sepsis, unspecified organism SNOMED: 53624118 (3) SIRS (systemic inflammatory response syndrome) ICD Codes: R65.10 - Systemic inflammatory response syndrome (SIRS) of non- infectious origin without acute organ dysfunction SNOMED: 735717113 (4) Febrile illness, acute ICD Codes: R50.9 - Fever, unspecified SNOMED: 642052201 (5) Transaminitis ICD Codes: R74.0 - Nonspecific elevation of levels of transaminase and lactic acid dehydrogenase [LDH] SNOMED: 203869008, 738978978 (6) Elevated liver function tests ICD Codes: R79.89 - Other specified abnormal findings of blood chemistry SNOMED: 508147721, 221447773 (7) Dehydration ICD Codes: E86.0 - Dehydration SNOMED: 12046073 (8) Hyponatremia ICD Codes: E87.1 - Hypo-osmolality and hyponatremia SNOMED: 62462488 (9) History of Crohn's disease ICD Codes: Z87.19 - Personal history of other diseases of the digestive system SNOMED: 031459600654399 (10) Hepatomegaly ICD Codes: R16.0 - Hepatomegaly, not elsewhere classified SNOMED: 03085408 Status: stable Assessment/Plan CMV DNA PCR is positive so likely fevers 2/2 CMV viremia. CMV PCR level was 2016 /mL on 11/12/17 ID consulted, appreciate rec's s/p tamiflu (11/06-11/11). Influenza rapid test neg but maybe false positive. No PCR test available at [facility] F/u repeat blood cultures fr 11/08/17--ngtd D/c ceftriaxone per ID (stopped 11/10/17) D/c azithro and doxy per ID (stopped 11/12/17) Start edvalganciclovir for CMV viremia per ID (11/13-) Labs every other day F/u blood cultures from admission--ngtd F/u EBV, monospot, CMV HIV neg, hepatitis panel neg CT head, c/a/p reviewed and showed no source of infection; showed hepatomegaly GI consulted Hold 6-mercaptopurine per GI F/u ECHO--EF 55-60% F/u U/S abd--shows fatty liver Trend LFTs mIVFs Tylenol + trial of Ketorlac (risks discussed and pt wishes to try it) Fioricet PRN headache Consider LP if fevers persist Pain control, bowel regimen Supportive care DC once fevers improved and tolerating antiviral therapy. Pt now awaiting transfer to [facility] DVT ppx: early ambulation. pt refusing hsq FULL CODE D/w pt, mother, ID, RN extensively regarding plan of care and dispo. D/w IBD at [facility]--recommends starting treatment for CMV. No need for colonoscopy if diarrhea at baseline Subjective Date patient seen: Nov 14, 2017 Time patient seen: 13:47 ROS Limited/Unobtainable: No Constitutional: Reports: fever, malaise, weakness HEENT: Reports: throat pain, mouth pain Respiratory: Reports: cough, shortness of breath Gastrointestinal/Abdominal: Reports: no symptoms Genitourinary: Reports: no symptoms Neurologic/Psychiatric: Reports: headache Endocrine: Reports: no symptoms Hematologic/Lymphatic: Reports: no symptoms Allergies: Coded Allergies: No Known Allergies (Unverified , 11/04/17) Subjective No acute o/n events Fever to 102 at midnight Cont to c/o severe headache, intermittent. D/w ID and pt re LP and pt prefers to hold off given he is awaiting transfer to [facility]. Fioricet helps w/ headache Pt feels fevers less frequent and has not used Toradol since yesterday. Cont w/ c/o cough. Having some R flank pain from coughing fits. C/o small mouth sores similar to ones he has had prior w/ his Crohn's disease Objective Last 24 Hour Vital Signs Date Time Temp Pulse Resp B/P (MAP) Pulse Ox O2 Delivery O2 Flow Rate FiO2 11/14/17 12:40 98.4 97 20 108/73 98 11/14/17 08:15 Room Air 11/14/17 08:15 97.0 94 20 118/79 100 11/14/17 04:06 98.7 95 18 113/78 99 11/14/17 01:26 98.5 11/14/17 00:00 102.2 117 18 88/54 95 11/13/17 20:00 99.0 113 17 90/52 96 11/13/17 16:00 98.4 72 18 115/75 100 Room Air Intake and Output 11/13/17 11/14/17 19:00 07:00 Intake Total 1200 ml 1740 ml Balance 1200 ml 1740 ml Intake Oral 540 ml IV Total 1200 ml 1200 ml # Voids 5 3 # Bowel Movements 1 Height (Feet): 5 Height (Inches): 4.00 Weight (Pounds): 130 Objective General: alert, cooperative, no distress, appears stated age Head: normocephalic, without obvious abnormality, atraumatic Eyes: conjunctivae/corneas clear. PERRL, EOM's intact Throat: lips, mucosa, and tongue normal. MMM Neck: supple, symmetrical, trachea midline, and no JVD Lungs: clear to auscultation bilaterally Heart: regular rate and rhythm, S1, S2 normal, no murmur, click, rub or gallop Abdomen: soft, non-tender, non-distended, bowel sounds normal Extremities: extremities normal, atraumatic, no cyanosis or edema Pulses: 2+ and symmetric Skin: skin color, texture, turgor normal; no rashes or lesions Neurologic: grossly normal, no focal deficits Salina Driver M.D. Nov 14, 2017 13:47
--- NOTE | 2017-11-14 14:38 | GI Progress Note ---
Assessment/Plan Problems: (1) Elevated liver function tests ICD Codes: R79.89 - Other specified abnormal findings of blood chemistry SNOMED: 307772790, 119903756 (2) Hepatomegaly ICD Codes: R16.0 - Hepatomegaly, not elsewhere classified SNOMED: 71001995 (3) Fatty liver ICD Codes: K76.0 - Fatty (change of) liver, not elsewhere classified SNOMED: 210390869 (4) History of Crohn's disease ICD Codes: Z87.19 - Personal history of other diseases of the digestive system SNOMED: 296370207482428 (5) Transaminitis ICD Codes: R74.0 - Nonspecific elevation of levels of transaminase and lactic acid dehydrogenase [LDH] SNOMED: 306659604, 864155904 Status: unchanged Status Narrative Discussed with Dr. Babb. Assessment/Plan CT AP reviewed >> - No evidence of malignant neoplasm. No abscess or focus of infection/ inflammation identified. - Hepatomegaly with fatty infiltration. Mild splenomegaly noted. 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 Objective Last 24 Hour Vital Signs Date Time Temp Pulse Resp B/P (MAP) Pulse Ox O2 Delivery O2 Flow Rate FiO2 11/14/17 12:40 98.4 97 20 108/73 98 11/14/17 08:15 Room Air 11/14/17 08:15 97.0 94 20 118/79 100 11/14/17 04:06 98.7 95 18 113/78 99 11/14/17 01:26 98.5 11/14/17 00:00 102.2 117 18 88/54 95 11/13/17 20:00 99.0 113 17 90/52 96 11/13/17 16:00 98.4 72 18 115/75 100 Room Air Intake and Output 11/13/17 11/14/17 19:00 07:00 Intake Total 1200 ml 1740 ml Balance 1200 ml 1740 ml Intake Oral 540 ml IV Total 1200 ml 1200 ml # Voids 5 3 # Bowel Movements 1 Height (Feet): 5 Height (Inches): 4.00 Weight (Pounds): 130 General Appearance: WD/WN, no apparent distress, alert Cardiovascular: normal rate Respiratory/Chest: normal breath sounds, no respiratory distress Abdominal Exam: normal bowel sounds, non tender, soft Extremities: normal range of motion, non-tender Gracia Mendenhall N.P. Nov 14, 2017 14:38
[2017-11-14] MEDS ORDERED: Promethazine/Codeine 5ml UD ORAL PRN (14:45)
[2017-11-14] MEDS: Guaifenesin/DM 10ml syrup ORAL SCH (15:23)
[2017-11-14 16:08] VITALS: BP 126/74
[2017-11-14 20:00] VITALS: BP 117/78
[2017-11-15] MEDS: Guaifenesin/DM 10ml syrup ORAL SCH ×5 (00:06→23:43)
[2017-11-15 00:45] VITALS: BP 115/70
[2017-11-15 04:00] VITALS: BP 112/70
[2017-11-15 08:00] VITALS: BP 111/69
[2017-11-15] MEDS: Benzonatate 100mg Perles ORAL SCH ×3 (09:25→18:03)
--- NOTE | 2017-11-15 10:41 | GI Progress Note ---
Assessment/Plan Problems: (1) Elevated liver function tests ICD Codes: R79.89 - Other specified abnormal findings of blood chemistry SNOMED: 047266732, 424923116 (2) Hepatomegaly ICD Codes: R16.0 - Hepatomegaly, not elsewhere classified SNOMED: 66462560 (3) Fatty liver ICD Codes: K76.0 - Fatty (change of) liver, not elsewhere classified SNOMED: 913614997 (4) History of Crohn's disease ICD Codes: Z87.19 - Personal history of other diseases of the digestive system SNOMED: 961196561603376 (5) Transaminitis ICD Codes: R74.0 - Nonspecific elevation of levels of transaminase and lactic acid dehydrogenase [LDH] SNOMED: 109158236, 776787101 Status: stable Status Narrative Discussed with Dr. Babb. Assessment/Plan CT AP reviewed >> - No evidence of malignant neoplasm. No abscess or focus of infection/ inflammation identified. - Hepatomegaly with fatty infiltration. Mild splenomegaly noted. 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 fever better non productive cough Objective Last 24 Hour Vital Signs Date Time Temp Pulse Resp B/P (MAP) Pulse Ox O2 Delivery O2 Flow Rate FiO2 11/15/17 08:00 98.8 105 19 111/69 97 11/15/17 04:00 98.7 94 19 112/70 97 11/15/17 00:45 98.2 92 19 115/70 97 11/14/17 20:00 97.4 101 20 117/78 97 11/14/17 19:42 99.8 11/14/17 16:08 99.8 104 21 126/74 97 11/14/17 16:08 Room Air 11/14/17 12:40 Room Air 11/14/17 12:40 98.4 97 20 108/73 98 Intake and Output 11/14/17 11/15/17 19:00 07:00 Intake Total 1960 ml Balance 1960 ml Intake Oral 860 ml IV Total 1100 ml # Voids 1 4 Height (Feet): 5 Height (Inches): 4.00 Weight (Pounds): 130 General Appearance: WD/WN, no apparent distress, alert Cardiovascular: normal rate Respiratory/Chest: normal breath sounds, no respiratory distress Abdominal Exam: normal bowel sounds, non tender, soft Extremities: normal range of motion, non-tender Gracia Mendenhall N.P. Nov 15, 2017 10:41
[2017-11-15 11:09] LABS: HEMATOCRIT 38.6 % (42.0-52.0); HEMOGLOBIN 13.5 G/DL (14.2-18.0); MEAN CORPUSCULAR VOLUME 89 FL (80-99); PLATELET COUNT 306 K/UL (150-450); RED BLOOD COUNT 4.33 M/UL (4.70-6.10); RED CELL DISTRIBUTION WIDTH 12.3 % (11.6-14.8); WHITE BLOOD COUNT 7.4 K/UL (4.8-10.8)
[2017-11-15 12:00] VITALS: BP 113/72
[2017-11-15 12:04] LABS: ALANINE AMINOTRANSFERASE 115 U/L (12-78); ALBUMIN 2.8 G/DL (3.4-5.0); ALBUMIN/GLOBULIN RATIO 0.6 (1.0-2.7); ALKALINE PHOSPHATASE 125 U/L (46-116); ANION GAP 4 mmol/L (5-15); ASPARTATE AMINO TRANSFERASE 58 U/L (15-37); BILIRUBIN,TOTAL 0.3 MG/DL (0.2-1.0); BLOOD UREA NITROGEN 6 mg/dL (7-18); CALCIUM 8.5 MG/DL (8.5-10.1); CARBON DIOXIDE 29 MMOL/L (21-32); CHLORIDE 103 MMOL/L (98-107); CREATININE 0.7 MG/DL (0.55-1.30); POTASSIUM 3.8 MMOL/L (3.5-5.1); SODIUM 136 MMOL/L (136-145)
[2017-11-15 16:00] VITALS: BP 104/70
--- NOTE | 2017-11-15 16:01 | Infectious Diseases Prog Note ---
Assessment/Plan Assessment/Plan A) 1) fevers, cough, headache better, elevated LDH, LFT's hepatomegaly/ splenomegaly, ? viral, ? bacterial, ? fungal, ? cmv infection, ? brucellosis - cmv qualitative pcr and quantitative + for 2016 copies - lft's improving, fevers less, clinically better but still with cough and headache - serology noted to date - brucella IGM +, IGG negative - ICP called me about this, will see if level of titer available and need for further testing such as SAT (serum agglutination testing) and PCR - rickettsia - 1:64 - doubtful significance, > 1:64 is c/w active/recent infection and doxycycline did not help clinically or fevers, also no risk factors for rickettsia infection 2) Crohn's dx with immunosuppression tx 3) [place] - doubt meningitis 4) allergies - negative, sh-negative, fh-nc, mar noted, notes and records noted 5) d/w RN and patient at length P) 1) oral valganciclovir day # 2, will observe on tx 2) base line cmv pcr quantitative level ordered, f/u on serology, watch labs , cbc, watch temps, check ldh, watch lft's 3) continue per primary and consultants 4) orders noted and entered 5) may need wbc scan and more invasive testing/studies such as bone marrow, colonoscopy etc..., if fevers persist Subjective Constitutional: Reports: fever - less, fever curve better HEENT: Denies: congestion Respiratory: Reports: dry cough, Denies: shortness of breath Cardiovascular: Denies: chest pain Gastrointestinal/Abdominal: Reports: diarrhea - more bowel movements, Denies: nausea, vomiting Neurologic: Reports: headache - controlled Psychiatric: Denies: depression Skin: Denies: rash Hematologic: Denies: bleeding Musculoskeletal: Denies: pain Allergies: Coded Allergies: No Known Allergies (Unverified , 11/04/17) Objective Vital Signs Last 24 Hour Vital Signs Date Time Temp Pulse Resp B/P (MAP) Pulse Ox O2 Delivery O2 Flow Rate FiO2 11/15/17 12:00 100.0 97 18 113/72 99 11/15/17 08:00 98.8 105 19 111/69 97 11/15/17 04:00 98.7 94 19 112/70 97 11/15/17 00:45 98.2 92 19 115/70 97 11/14/17 20:00 97.4 101 20 117/78 97 11/14/17 19:42 99.8 11/14/17 16:08 99.8 104 21 126/74 97 11/14/17 16:08 Room Air Height (Feet): 5 Height (Inches): 4.00 Weight (Pounds): 130 General Appearance: no acute distress HEENT: normocephalic, atraumatic, anicteric, mucous membranes moist, EOMI, pharynx normal, supple, no JVD Respiratory/Chest: lungs clear, normal breath sounds, no respiratory distress, no accessory muscle use Cardiovascular: normal rate, regular rhythm, no gallop/murmur, no JVD Abdomen: normal bowel sounds, soft, non tender, no organomegaly, non distended Genitourinary: other - no anders Extremities: no cyanosis Skin: no rash Neurologic/Psychiatric: breakfast and room attendant II-XII grossly normal, alert, oriented x 3, responsive Lymphatic: no neck adenopathy Musculoskeletal: no effusion Objective chest x-ray - negative CT scan - hepatomegaly and splenomegaly noted, no abscess, no sig adenopathy us abdomen pending echo - no vegetations mentioned CT head - negative Microbiology Date/Time Source Procedure Growth Status 11/08/17 11:30 Blood Blood Culture - Final NO GROWTH AFTER 5 DAYS Complete 11/06/17 13:40 Nasal Nares Influenza Types A,B Antigen (CHRISTIAN) - Final Complete 11/04/17 19:35 Urine,Clean Catch Urine Culture - Final Mixed Gram Positive Organism Complete serology noted - brucella + IGM Laboratory Tests Test 11/15/17 10:55 White Blood Count 7.4 K/UL (4.8-10.8) Red Blood Count 4.33 M/UL (4.70-6.10) L Hemoglobin 13.5 G/DL (14.2-18.0) L Hematocrit 38.6 % (42.0-52.0) L Mean Corpuscular Volume 89 FL (80-99) Mean Corpuscular Hemoglobin 31.3 PG (27.0-31.0) H Mean Corpuscular Hemoglobin Concent 35.0 G/DL (32.0-36.0) Red Cell Distribution Width 12.3 % (11.6-14.8) Platelet Count 306 K/UL (150-450) Mean Platelet Volume 5.5 FL (6.5-10.1) L Neutrophils (%) (Auto) % (45.0-75.0) Lymphocytes (%) (Auto) % (20.0-45.0) Monocytes (%) (Auto) % (1.0-10.0) Eosinophils (%) (Auto) % (0.0-3.0) Basophils (%) (Auto) % (0.0-2.0) Differential Total Cells Counted 100 Neutrophils % (Manual) 25 % (45-75) L Lymphocytes % (Manual) 62 % (20-45) H Monocytes % (Manual) 9 % (1-10) Eosinophils % (Manual) 4 % (0-3) H Basophils % (Manual) 0 % (0-2) Band Neutrophils 0 % (0-8) Reactive Lymphocytes 1+ Platelet Estimate Adequate Platelet Morphology Normal Red Blood Cell Morphology Normal Sodium Level 136 MMOL/L (136-145) Potassium Level 3.8 MMOL/L (3.5-5.1) Chloride Level 103 MMOL/L (98-107) Carbon Dioxide Level 29 MMOL/L (21-32) Anion Gap 4 mmol/L (5-15) L Blood Urea Nitrogen 6 mg/dL (7-18) L Creatinine 0.7 MG/DL (0.55-1.30) Estimat Glomerular Filtration Rate > 60 mL/min (>60) Glucose Level 111 MG/DL (74-106) H Calcium Level 8.5 MG/DL (8.5-10.1) Total Bilirubin 0.3 MG/DL (0.2-1.0) Aspartate Amino Transf (AST/SGOT) 58 U/L (15-37) H Alanine Aminotransferase (ALT/SGPT) 115 U/L (12-78) H Alkaline Phosphatase 125 U/L (46-116) H Lactate Dehydrogenase 473 U/L (81-234) H Total Protein 7.2 G/DL (6.4-8.2) Albumin 2.8 G/DL (3.4-5.0) L Globulin 4.4 g/dL Albumin/Globulin Ratio 0.6 (1.0-2.7) L Current Medications Medications (Trade) Dose Ordered Sig/Mark Route PRN Reason Start Time Stop Time Status Last Admin Dose Admin Acetaminophen (Tylenol) 325 mg Q4H PRN ORAL mild pain/fever 11/13/17 14:30 12/13/17 14:29 Acetaminophen (Tylenol) 500 mg Q4HR PRN ORAL severe pain/fever 11/13/17 14:45 12/06/17 17:59 11/14/17 18:43 Acetaminophen/ Butalbital/ Caffeine (Fioricet) 1 tab Q6H PRN ORAL HEADACHE 11/10/17 08:30 12/10/17 08:29 11/14/17 21:58 Al Hydroxide/Mg Hydroxide (Mylanta) 20 ml Q6H PRN ORAL heartburn, reflux 11/13/17 14:30 12/13/17 14:29 Benzonatate (Tessalon Perles) 100 mg THREE TIMES A DAY ORAL 11/13/17 15:00 12/13/17 14:59 11/15/17 13:22 Calcium Carbonate (Tums) 1,000 mg Q4H PRN ORAL heartburn, reflux 11/13/17 14:30 12/13/17 14:29 Cetylpyridinium Chloride (Cepacol) 1 lozg Q2H PRN KORIN sore throat 11/08/17 17:00 12/08/17 16:59 Diphenhydramine HCl (Benadryl) 25 mg Q6H PRN IVP Itching 11/06/17 17:00 12/06/17 16:59 Fexofenadine HCl (Sima) 60 mg TWICE A DAY ORAL 11/10/17 09:00 12/10/17 08:59 11/15/17 09:25 Finasteride (Proscar) 2.5 mg QHS ORAL 11/07/17 21:00 12/07/17 20:59 11/14/17 20:52 Guaifenesin/ Dextromethorphan (Robitussin DM Syrup) 10 ml Q6HR ORAL 11/14/17 15:00 12/14/17 14:59 11/15/17 12:31 Ketorolac Tromethamine (Toradol 30mg) 30 mg Q6H PRN IV pain (4-6) /fever 11/11/17 12:00 11/16/17 11:59 11/13/17 06:23 Ondansetron HCl (Zofran) 4 mg Q6H PRN IVP Nausea & Vomiting 11/04/17 23:30 12/04/17 23:29 Prochlorperazine (Compazine) 10 mg Q6H PRN IVP Nausea & Vomiting 11/07/17 10:15 12/07/17 10:14 Promethazine HCl/ Codeine (Phenergan with Codeine) 10 ml TIDPRN PRN ORAL For Cough 11/14/17 14:45 12/14/17 14:44 Pseudoephedrine HCl (Sudafed) 30 mg Q6H PRN ORAL sinus pain, congestion 11/09/17 10:30 12/09/17 10:29 Valganciclovir (Valcyte) 900 mg Q12HR ORAL 11/12/17 21:00 12/12/17 20:59 11/15/17 09:25 ANABELA MICHAEL Nov 15, 2017 16:01
[2017-11-15 20:50] VITALS: BP 107/81
--- NOTE | 2017-11-15 22:30 | General Progress Note ---
Assessment/Plan Problem List: (1) Cytomegalovirus (CMV) viremia ICD Codes: B25.9 - Cytomegaloviral disease, unspecified SNOMED: 2398213999103048 (2) Sepsis ICD Codes: A41.9 - Sepsis, unspecified organism SNOMED: 13175035 (3) SIRS (systemic inflammatory response syndrome) ICD Codes: R65.10 - Systemic inflammatory response syndrome (SIRS) of non- infectious origin without acute organ dysfunction SNOMED: 769306636 (4) Febrile illness, acute ICD Codes: R50.9 - Fever, unspecified SNOMED: 920365607 (5) Transaminitis ICD Codes: R74.0 - Nonspecific elevation of levels of transaminase and lactic acid dehydrogenase [LDH] SNOMED: 217992662, 906237602 (6) Elevated liver function tests ICD Codes: R79.89 - Other specified abnormal findings of blood chemistry SNOMED: 268922437, 413511901 (7) Dehydration ICD Codes: E86.0 - Dehydration SNOMED: 93764157 (8) Hyponatremia ICD Codes: E87.1 - Hypo-osmolality and hyponatremia SNOMED: 91042664 (9) History of Crohn's disease ICD Codes: Z87.19 - Personal history of other diseases of the digestive system SNOMED: 784763808142084 (10) Hepatomegaly ICD Codes: R16.0 - Hepatomegaly, not elsewhere classified SNOMED: 86355149 (11) Hepatitis ICD Codes: K75.9 - Inflammatory liver disease, unspecified SNOMED: 686997264 Status: stable Assessment/Plan CMV DNA PCR is positive so likely fevers 2/2 CMV viremia. CMV PCR level was 2016 /mL on 11/12/17 ID consulted, appreciate rec's s/p tamiflu (11/06-11/11). Influenza rapid test neg but maybe false positive. No PCR test available at [facility] F/u repeat blood cultures fr 11/08/17--ngtd D/c ceftriaxone per ID (stopped 11/10/17) D/c azithro and doxy per ID (stopped 11/12/17) Cont ganciclovir for CMV viremia per ID (11/13-) Labs every other day F/u blood cultures from admission--ngtd F/u EBV, monospot, CMV HIV neg, hepatitis panel neg CT head, c/a/p reviewed and showed no source of infection; showed hepatomegaly GI consulted Hold 6-mercaptopurine per GI F/u ECHO--EF 55-60% F/u U/S abd--shows fatty liver Trend LFTs mIVFs Tylenol + trial of Ketorlac (risks discussed and pt wishes to try it) Fioricet PRN headache Consider LP if fevers persist Pain control, bowel regimen Supportive care DC once fevers improved and tolerating antiviral therapy. Pt now awaiting transfer to [facility]. Possible d/c tomorrow if cont to be afebrile DVT ppx: early ambulation. pt refusing hsq FULL CODE D/w pt, mother, ID, RN extensively regarding plan of care and dispo. D/w IBD at [facility]--recommends starting treatment for CMV. No need for colonoscopy if diarrhea at baseline Subjective Date patient seen: Nov 15, 2017 Time patient seen: 13:00 ROS Limited/Unobtainable: No Constitutional: Reports: fever, malaise, weakness HEENT: Reports: throat pain Respiratory: Reports: cough, shortness of breath Gastrointestinal/Abdominal: Reports: no symptoms Neurologic/Psychiatric: Reports: headache Endocrine: Reports: no symptoms Hematologic/Lymphatic: Reports: no symptoms Allergies: Coded Allergies: No Known Allergies (Unverified , 11/04/17) Subjective No acute o/n events Afebrile overnight Cont to c/o severe headache, intermittent. D/w ID and pt re LP and pt prefers to hold off given he is awaiting transfer to [facility]. Fioricet helps w/ headache Fevers have improved Cont w/ c/o cough. Having some R flank pain from coughing fits. C/o small mouth sores similar to ones he has had prior w/ his Crohn's disease Objective Last 24 Hour Vital Signs Date Time Temp Pulse Resp B/P (MAP) Pulse Ox O2 Delivery O2 Flow Rate FiO2 11/15/17 20:50 99.5 107 20 107/81 96 11/15/17 16:00 99.3 100 19 104/70 97 11/15/17 16:00 Room Air 11/15/17 12:00 100.0 97 18 113/72 99 11/15/17 12:00 Room Air 11/15/17 08:00 Room Air 11/15/17 08:00 98.8 105 19 111/69 97 11/15/17 04:00 98.7 94 19 112/70 97 11/15/17 00:45 98.2 92 19 115/70 97 Intake and Output 11/14/17 11/15/17 19:00 07:00 Intake Total 1960 ml Balance 1960 ml Intake Oral 860 ml IV Total 1100 ml # Voids 1 4 Laboratory Tests 11/15/17 10:55: White Blood Count 7.4, Red Blood Count 4.33L, Hemoglobin 13.5L, Hematocrit 38.6L , Mean Corpuscular Volume 89, Mean Corpuscular Hemoglobin 31.3H, Mean Corpuscular Hemoglobin Concent 35.0, Red Cell Distribution Width 12.3, Platelet Count 306, Mean Platelet Volume 5.5L, Neutrophils (%) (Auto) , Lymphocytes (%) ( Auto) , Monocytes (%) (Auto) , Eosinophils (%) (Auto) , Basophils (%) (Auto) , Differential Total Cells Counted 100, Neutrophils % (Manual) 25L, Lymphocytes % (Manual) 62H, Monocytes % (Manual) 9, Eosinophils % (Manual) 4H, Basophils % ( Manual) 0, Band Neutrophils 0, Reactive Lymphocytes 1+, Platelet Estimate Adequate, Platelet Morphology Normal, Red Blood Cell Morphology Normal, Sodium Level 136, Potassium Level 3.8, Chloride Level 103, Carbon Dioxide Level 29, Anion Gap 4L, Blood Urea Nitrogen 6L, Creatinine 0.7, Estimat Glomerular Filtration Rate > 60, Glucose Level 111H, Calcium Level 8.5, Total Bilirubin 0.3 , Aspartate Amino Transf (AST/SGOT) 58H, Alanine Aminotransferase (ALT/SGPT) 115H, Alkaline Phosphatase 125H, Lactate Dehydrogenase 473H, Total Protein 7.2, Albumin 2.8L, Globulin 4.4, Albumin/Globulin Ratio 0.6L, Brucella IgG Antibody [ Pending], Brucella IgM Antibody [Pending] Height (Feet): 5 Height (Inches): 4.00 Weight (Pounds): 130 Objective General: alert, cooperative, no distress, appears stated age Head: normocephalic, without obvious abnormality, atraumatic Eyes: conjunctivae/corneas clear. PERRL, EOM's intact Throat: lips, mucosa, and tongue normal. MMM Neck: supple, symmetrical, trachea midline, and no JVD Lungs: clear to auscultation bilaterally Heart: regular rate and rhythm, S1, S2 normal, no murmur, click, rub or gallop Abdomen: soft, non-tender, non-distended, bowel sounds normal Extremities: extremities normal, atraumatic, no cyanosis or edema Pulses: 2+ and symmetric Skin: skin color, texture, turgor normal; no rashes or lesions Neurologic: grossly normal, no focal deficits Salina Driver M.D. Nov 15, 2017 22:30
[2017-11-16 00:57] VITALS: BP 111/76
[2017-11-16 04:00] VITALS: BP 84/57
[2017-11-16] MEDS: Guaifenesin/DM 10ml syrup ORAL SCH ×2 (05:59→12:06)
[2017-11-16 06:00] VITALS: BP 103/70
[2017-11-16 08:00] VITALS: BP 102/68
[2017-11-16] MEDS: Benzonatate 100mg Perles ORAL SCH ×2 (10:18→13:00)
[2017-11-16] MEDS ORDERED: VALCYTE450 MG ORAL ×2 (12:41→13:13)
[2017-11-16] MEDS ORDERED: PROMETH-CODEIN 65 ML PO ×2 (12:41→13:11)
[2017-11-16] MEDS ORDERED: FIORICET1 EA ORAL (12:42)
--- NOTE | 2017-11-16 13:25 | Infectious Diseases Prog Note ---
Assessment/Plan Assessment/Plan A) 1) fevers, cough, headache, elevated LDH, LFT's hepatomegaly/splenomegaly, ? viral, ? bacterial, ? fungal, ? cmv infection, ? brucellosis - cmv qualitative pcr and quantitative + for 2016 copies - lft's improving, fevers less, clinically better but still with cough and headache - serology noted to date - brucella IGM +, IGG negative - ICP called me about this, will see if level of titer available and need for further testing such as SAT (serum agglutination testing) and PCR - rickettsia - 1:64 - doubtful significance, > 1:64 is c/w active/recent infection and doxycycline did not help clinically or fevers, also no risk factors for rickettsia infection - patient refusing LP at this point 2) Crohn's dx with immunosuppression tx 3) [place] - doubt meningitis 4) allergies - negative, sh-negative, fh-nc, mar noted, notes and records noted 5) d/w RN and patient at length P) 1) oral valganciclovir day # 4, will observe on tx - d/w Dr. Downing and plan to tx at least 2-3 weeks with valganciclovir - patient to f/u in my office in 1-2 weeks 2) will get confirmatory testing for brucellosis - SAT, Sugar serology and pcr prior to tx since 6 weeks tx needed 3) continue per primary and consultants 4) orders noted and entered 5) patient for discharge today Subjective Constitutional: Reports: fatigue, Denies: fever, chills HEENT: Denies: congestion Respiratory: Reports: dry cough, Denies: shortness of breath Cardiovascular: Denies: chest pain Gastrointestinal/Abdominal: Reports: diarrhea - typical for his crohns dx, Denies: nausea, vomiting Neurologic: Denies: headache Psychiatric: Denies: depression Hematologic: Denies: bleeding Musculoskeletal: Denies: pain Allergies: Coded Allergies: No Known Allergies (Unverified , 11/04/17) Objective Vital Signs Last 24 Hour Vital Signs Date Time Temp Pulse Resp B/P (MAP) Pulse Ox O2 Delivery O2 Flow Rate FiO2 11/16/17 08:00 98.8 103 20 102/68 98 Room Air 11/16/17 06:00 103/70 11/16/17 04:00 98.6 99 19 84/57 97 11/16/17 00:57 98.7 93 19 111/76 97 11/16/17 00:57 Room Air 11/15/17 20:50 Room Air 11/15/17 20:50 99.5 107 20 107/81 96 11/15/17 16:00 99.3 100 19 104/70 97 11/15/17 16:00 Room Air Height (Feet): 5 Height (Inches): 4.00 Weight (Pounds): 130 General Appearance: no acute distress HEENT: normocephalic, atraumatic, anicteric, mucous membranes moist, EOMI, pharynx normal, supple, no JVD Respiratory/Chest: lungs clear, normal breath sounds, no respiratory distress, no accessory muscle use Cardiovascular: normal rate, regular rhythm, no gallop/murmur, no JVD Abdomen: normal bowel sounds, soft, non tender, no organomegaly, non distended Genitourinary: other - no cva pain, no anders Extremities: no cyanosis Skin: no rash Neurologic/Psychiatric: senior caregiver II-XII grossly normal, alert, oriented x 3, responsive Lymphatic: no neck adenopathy Musculoskeletal: no effusion Objective chest x-ray - negative CT scan - hepatomegaly and splenomegaly noted, no abscess, no sig adenopathy us abdomen pending echo - no vegetations mentioned CT head - negative Microbiology Date/Time Source Procedure Growth Status 11/08/17 11:30 Blood Blood Culture - Final NO GROWTH AFTER 5 DAYS Complete 11/06/17 13:40 Nasal Nares Influenza Types A,B Antigen (CHRISTIAN) - Final Complete 11/04/17 19:35 Urine,Clean Catch Urine Culture - Final Mixed Gram Positive Organism Complete Labs Test 11/15/17 10:55 White Blood Count 7.4 K/UL (4.8-10.8) Red Blood Count 4.33 M/UL (4.70-6.10) Hemoglobin 13.5 G/DL (14.2-18.0) Hematocrit 38.6 % (42.0-52.0) Mean Corpuscular Volume 89 FL (80-99) Mean Corpuscular Hemoglobin 31.3 PG (27.0-31.0) Mean Corpuscular Hemoglobin Concent 35.0 G/DL (32.0-36.0) Red Cell Distribution Width 12.3 % (11.6-14.8) Platelet Count 306 K/UL (150-450) Mean Platelet Volume 5.5 FL (6.5-10.1) Neutrophils (%) (Auto) % (45.0-75.0) Lymphocytes (%) (Auto) % (20.0-45.0) Monocytes (%) (Auto) % (1.0-10.0) Eosinophils (%) (Auto) % (0.0-3.0) Basophils (%) (Auto) % (0.0-2.0) Differential Total Cells Counted 100 Neutrophils % (Manual) 25 % (45-75) Lymphocytes % (Manual) 62 % (20-45) Monocytes % (Manual) 9 % (1-10) Eosinophils % (Manual) 4 % (0-3) Basophils % (Manual) 0 % (0-2) Band Neutrophils 0 % (0-8) Reactive Lymphocytes 1+ Platelet Estimate Adequate Platelet Morphology Normal Red Blood Cell Morphology Normal Sodium Level 136 MMOL/L (136-145) Potassium Level 3.8 MMOL/L (3.5-5.1) Chloride Level 103 MMOL/L (98-107) Carbon Dioxide Level 29 MMOL/L (21-32) Anion Gap 4 mmol/L (5-15) Blood Urea Nitrogen 6 mg/dL (7-18) Creatinine 0.7 MG/DL (0.55-1.30) Estimat Glomerular Filtration Rate > 60 mL/min (>60) Glucose Level 111 MG/DL (74-106) Calcium Level 8.5 MG/DL (8.5-10.1) Total Bilirubin 0.3 MG/DL (0.2-1.0) Aspartate Amino Transf (AST/SGOT) 58 U/L (15-37) Alanine Aminotransferase (ALT/SGPT) 115 U/L (12-78) Alkaline Phosphatase 125 U/L (46-116) Lactate Dehydrogenase 473 U/L (81-234) Total Protein 7.2 G/DL (6.4-8.2) Albumin 2.8 G/DL (3.4-5.0) Globulin 4.4 g/dL Albumin/Globulin Ratio 0.6 (1.0-2.7) Current Medications Medications (Trade) Dose Ordered Sig/Mark Route PRN Reason Start Time Stop Time Status Last Admin Dose Admin Acetaminophen (Tylenol) 325 mg Q4H PRN ORAL mild pain/fever 11/13/17 14:30 12/13/17 14:29 Acetaminophen (Tylenol) 500 mg Q4HR PRN ORAL severe pain/fever 11/13/17 14:45 12/06/17 17:59 11/14/17 18:43 Acetaminophen/ Butalbital/ Caffeine (Fioricet) 1 tab Q6H PRN ORAL HEADACHE 11/10/17 08:30 12/10/17 08:29 11/15/17 20:03 Al Hydroxide/Mg Hydroxide (Mylanta) 20 ml Q6H PRN ORAL heartburn, reflux 11/13/17 14:30 12/13/17 14:29 Benzonatate (Tessalon Perles) 100 mg THREE TIMES A DAY ORAL 11/13/17 15:00 12/13/17 14:59 11/16/17 10:18 Calcium Carbonate (Tums) 1,000 mg Q4H PRN ORAL heartburn, reflux 11/13/17 14:30 12/13/17 14:29 Cetylpyridinium Chloride (Cepacol) 1 lozg Q2H PRN KORIN sore throat 11/08/17 17:00 12/08/17 16:59 Diphenhydramine HCl (Benadryl) 25 mg Q6H PRN IVP Itching 11/06/17 17:00 12/06/17 16:59 Fexofenadine HCl (Sima) 60 mg TWICE A DAY ORAL 11/10/17 09:00 12/10/17 08:59 11/16/17 10:18 Finasteride (Proscar) 2.5 mg QHS ORAL 11/07/17 21:00 12/07/17 20:59 11/15/17 20:02 Guaifenesin/ Dextromethorphan (Robitussin DM Syrup) 10 ml Q6HR ORAL 11/14/17 15:00 12/14/17 14:59 11/16/17 12:06 Ondansetron HCl (Zofran) 4 mg Q6H PRN IVP Nausea & Vomiting 11/04/17 23:30 12/04/17 23:29 Prochlorperazine (Compazine) 10 mg Q6H PRN IVP Nausea & Vomiting 11/07/17 10:15 12/07/17 10:14 Promethazine HCl/ Codeine (Phenergan with Codeine) 10 ml TIDPRN PRN ORAL For Cough 11/14/17 14:45 12/14/17 14:44 Pseudoephedrine HCl (Sudafed) 30 mg Q6H PRN ORAL sinus pain, congestion 11/09/17 10:30 12/09/17 10:29 Valganciclovir (Valcyte) 900 mg Q12HR ORAL 11/12/17 21:00 12/12/17 20:59 11/16/17 10:18 ANABELA MICHAEL Nov 16, 2017 13:25
--- NOTE | 2017-11-16 13:27 | GI Progress Note ---
Assessment/Plan Problems: (1) Elevated liver function tests ICD Codes: R79.89 - Other specified abnormal findings of blood chemistry SNOMED: 959777401, 112423824 (2) Hepatomegaly ICD Codes: R16.0 - Hepatomegaly, not elsewhere classified SNOMED: 33388690 (3) Fatty liver ICD Codes: K76.0 - Fatty (change of) liver, not elsewhere classified SNOMED: 102168474 (4) History of Crohn's disease ICD Codes: Z87.19 - Personal history of other diseases of the digestive system SNOMED: 833693622392559 (5) Transaminitis ICD Codes: R74.0 - Nonspecific elevation of levels of transaminase and lactic acid dehydrogenase [LDH] SNOMED: 850379363, 450420420 Status: stable Status Narrative Discussed with Dr. Babb. Assessment/Plan CT AP reviewed >> - No evidence of malignant neoplasm. No abscess or focus of infection/ inflammation identified. - Hepatomegaly with fatty infiltration. Mild splenomegaly noted. 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 fever better non productive cough Objective Last 24 Hour Vital Signs Date Time Temp Pulse Resp B/P (MAP) Pulse Ox O2 Delivery O2 Flow Rate FiO2 11/16/17 08:00 98.8 103 20 102/68 98 Room Air 11/16/17 06:00 103/70 11/16/17 04:00 98.6 99 19 84/57 97 11/16/17 00:57 98.7 93 19 111/76 97 11/16/17 00:57 Room Air 11/15/17 20:50 Room Air 11/15/17 20:50 99.5 107 20 107/81 96 11/15/17 16:00 99.3 100 19 104/70 97 11/15/17 16:00 Room Air Intake and Output 11/15/17 11/16/17 19:00 07:00 Intake Total 1200 ml 240 ml Balance 1200 ml 240 ml Intake Oral 600 ml 240 ml IV Total 600 ml # Voids 3 2 Height (Feet): 5 Height (Inches): 4.00 Weight (Pounds): 130 General Appearance: WD/WN, no apparent distress, alert Cardiovascular: normal rate Respiratory/Chest: normal breath sounds, no respiratory distress Abdominal Exam: normal bowel sounds, non tender, soft Extremities: normal range of motion, non-tender Gracia Mendenhall N.P. Nov 16, 2017 13:27
--- NOTE | 2017-11-16 13:30 | Discharge Summary ---
Discharge Summary Hospital Course Date of Admission Nov 04, 2017 at 21:46 Date of Discharge 11/16/17 Admitting Diagnosis Sepsis, dehydration Reason for Hospitalization: Sepsis HPI 47y/o male with pmh of Crohn's disease (stable on mercaptopurine per pt) who presents with fevers and cough. Pt states he has not been feeling well for the past 10 days. He c/o cough which is dry. Also w/ sorethroat, sinus pain, headaches, fevers/chills/sweats. Notes fevers up to 102 at home. Was seen by PCP and had influenza test which was negative but given 5 day course of tamiflu which he completed w/o improvement. Given persistent fevers and flu-like symptoms he presented to ER for further evaluation. Denies abd pain, n/v, d/c, dysuria, chest pain, SOB, neck stiffness. Travels often for his work. Was in [place] last year. Goes to [facility]. Denies recent sick contacts, tick bites, insect bites. In ER, pt noted to have fevers to 101.4, tachycardic to 100-110s. No leukocytosis. +elevated LFTs. He was admitted and diagnosed with likely viral illness. He has been given IVFs. Influenza test was negative. Consultations Infectious disease, Gastroenterology Hospital Course Pt was admitted with concern for sepsis. He had persistent fevers. He was seen by ID. Extensive infectious disease workup was sent including serology for multiple fungal and viral infections as pt is immunocompromised in setting of being on mercaptopurine for Crohn's disease. He continued to spike fevers despite being on empiric antibiotics and tamiflu. CT head and chest/abd/pelvis showed no evidence of infection. Pt with elevated LFTs and U/S abd showed hepatomegaly. 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 CMV PCR level was 2016/mL on 11/12/17. pt was initated on valganciclovir per ID. He continued to have headaches and cough. LP was considered but pt wanted to hold off. .After a few days of being on valganciclovir fevers resolved and LFTs downtrended. Pt is to hold mercaptopurine for now. He will follow-up closeld with ID, as well as his IBD doctor at [facility]. Discharge physical exam: General: alert, cooperative, no distress, appears stated age Head: normocephalic, without obvious abnormality, atraumatic Eyes: conjunctivae/corneas clear. PERRL, EOM's intact Throat: lips, mucosa, and tongue normal. MMM Neck: supple, symmetrical, trachea midline, and no JVD Lungs: clear to auscultation bilaterally Heart: regular rate and rhythm, S1, S2 normal, no murmur, click, rub or gallop Abdomen: soft, non-tender, non-distended, bowel sounds normal Extremities: extremities normal, atraumatic, no cyanosis or edema Pulses: 2+ and symmetric Skin: skin color, texture, turgor normal; no rashes or lesions Neurologic: grossly normal, no focal deficits Discharge diagnoses: Cytomegalovirus (CMV) viremia ICD Codes: B25.9 - Cytomegaloviral disease, unspecified SNOMED: 8594528399967883 Sepsis ICD Codes: A41.9 - Sepsis, unspecified organism SNOMED: 78439887 (4) Febrile illness, acute ICD Codes: R50.9 - Fever, unspecified SNOMED: 597913802 Transaminitis ICD Codes: R74.0 - Nonspecific elevation of levels of transaminase and lactic acid dehydrogenase [LDH] SNOMED: 482520993, 311372974 Elevated liver function tests ICD Codes: R79.89 - Other specified abnormal findings of blood chemistry SNOMED: 340575025, 412211803 Dehydration ICD Codes: E86.0 - Dehydration SNOMED: 17876075 Hyponatremia ICD Codes: E87.1 - Hypo-osmolality and hyponatremia SNOMED: 83646207 History of Crohn's disease ICD Codes: Z87.19 - Personal history of other diseases of the digestive system SNOMED: 114222541207944 Hepatomegaly ICD Codes: R16.0 - Hepatomegaly, not elsewhere classified SNOMED: 80459530 Hepatitis ICD Codes: K75.9 - Inflammatory liver disease, unspecified Discharge Medications New Medications: Acetamin/Butalbital/Caffeine* (Fioricet*) 1 Ea Tab 1 TAB ORAL Q6H PRN for 30 Days, #30 TAB 2 Refills headache Valganciclovir HCl (Valcyte) 450 Mg Tablet 900 MG ORAL Q12HR for 21 Days, #84 TAB 1 Refill Changed Medications: Promethazine HCl/Codeine (Prometh-Codein 6.25-10 mg/5 ml) 5 Ml Syrup 10 ML PO Q6HR PRN for 30 Days, #118 ML 1 Refill (Changed from: HS) cough Continued Medications: Benzonatate* (Tessalon Perle*) 100 Mg Capsule 100 MG ORAL THREE TIMES A DAY, PERLE Finasteride* (Proscar*) 5 Mg Tablet 5 MG ORAL DAILY, #30 TAB 0 Refills Discontinued Medications: Mercaptopurine (Mercaptopurine) 50 Mg Tablet 50 MG PO HS, TAB Discharge Condition Upon Discharge: stable Discharge Disposition Patient was discharged to Discharge Diagnoses: Salina Driver M.D. Nov 16, 2017 13:30
--- NOTE | 2017-11-21 14:03 | Physician Query ---
--------- THIS DOCUMENT IS A PERMANENT PART OF THE MEDICAL RECORD --------- PLEASE COMPLETE THE DOCUMENT BEFORE SIGNING Dear Dr. MANRIQUEZ Date:11/21/17 [employer] Hand/CDS Name: Alma Delia Tam, CCDS, CCS Exercise your independent professional judgment when responding to query. Question asked do not imply a particular answer is desired/expected Clinical Documentation States: Admission date:11/04/17 Discharged: 11/16/17 "Sepsis" documented in ..... HISTORY OF PRESENT ILLNESS: This is a 47-year-old male, who has in his background Crohn's disease. For the last 10 days, the patient has been suffering from congestion, headache, chills, and fever. Progress Note date and time: 11/15/170 states: Problem List: (1) Cytomegalovirus (CMV) viremia (2) Sepsis (3) SIRS (systemic inflammatory response syndrome) Clinical Findings Show: fevers to 101.4, tachycardic to 100-110s. No leukocytosis. +elevated LFTs. He was admitted and diagnosed with likely viral illness. He has been given IVFs. Influenza test was negative. Please clarify if SEPSIS was: ( ) Not present on admission (x )present on admission ( ) Cannot be clinically determined whether condition was present on admission ( ) Ruled out as a diagnosis JOSHUA MANRIQUEZ M.D. DATE & TIME [facility]
== END 2017-11-16 14:20 | disposition home or self-care (01) | DRG 872 ==
LOC: EMR 19:51 → EDBEDREQ 21:23 → 4E 21:46 → EDBEDREQ 22:12 → 3E 23:00
DX: A41.89 Other specified sepsis (principal); B25.9 Cytomegaloviral disease, unspecified; E87.1 Hypo-osmolality and hyponatremia; K50.90 Crohn's disease, unspecified, without complications; K76.0 Fatty (change of) liver, not elsewhere classified; R16.0 Hepatomegaly, not elsewhere classified; K75.9 Inflammatory liver disease, unspecified; E86.0 Dehydration; R51 Headache; R79.89 Other specified abnormal findings of blood chemistry; R74.0 Nonspecific elevation of levels of transaminase and lactic acid dehydrogenase [LDH]
CPT/HCPCS: 36415; 70460; 70486; 71045; 71260; 74177; 76700; 80048; 80053; 80076; 80307; 81003; 82105; 82164; 82550; 83605; 83615; 83735; 84484; 85007; 85025; 85610; 85651; 85730; 86140; 86592; 86611; 86631; 86635; 86644; 86695; 86696; 86703; 86705; 86709; 86710; 86738; 86787; 86803; 87040; 87086; 87340; 87449; 87496; 87497; 87517; 87529; 87798; 93306; 94664; 99285; J3490